=== PATIENT | male | born 1955 | race Caucasian/White ===

== ENCOUNTER → 2021-08-25 11:38 | Outpatient (BNVA) | payer MEDICARE, SELFPAY | PROVIDERS: PCP Nurse Practitioner; Visit Provider Nurse Practitioner | DX: I10 Essential (primary) hypertension (principal); J44.9 Chronic obstructive pulmonary disease, unspecified; M54.16 Radiculopathy, lumbar region; E78.2 Mixed hyperlipidemia | CPT/HCPCS: 80053; 80061; 81000; 84443; 85025 ==

== ENCOUNTER → 2021-08-30 11:19 | Outpatient (BNVA) | payer MEDICARE, SELFPAY | PROVIDERS: PCP Nurse Practitioner; Visit Provider Nurse Practitioner | DX: M54.16 Radiculopathy, lumbar region (principal) | CPT/HCPCS: 72100; 73502 ==

== ENCOUNTER → 2021-10-11 13:24 | Outpatient (BNVA) | payer MEDICARE, SELFPAY | PROVIDERS: PCP Nurse Practitioner; Visit Provider Internal Medicine Pulmonary Disease | DX: J44.9 Chronic obstructive pulmonary disease, unspecified (principal); R06.00 Dyspnea, unspecified; Z12.2 Encounter for screening for malignant neoplasm of respiratory organs; Z71.6 Tobacco abuse counseling; F17.210 Nicotine dependence, cigarettes, uncomplicated | CPT/HCPCS: 99204 ==

== ENCOUNTER 2021-12-26 08:44 | Outpatient (CLI) | payer MEDICARE, SELFPAY ==
--- NOTE | 2021-12-26 13:20 | PFTS_ITS ---
Date of Study:12/26/21 Date of Dictation: MECHANICS: Forced vital capacity (FVC) is reduced. Forced expiratory volume in one second (FEV1) is reduced. FEV1/FVC is reduced. FLOW VOLUME LOOP: Reduced flow at all lung volumes with significant scooping. LUNG VOLUMES: Total lung capacity (TLC) is increased. Residual volume (RV) is increased. DIFFUSING CAPACITY FOR CARBON MONOXIDE: Moderately reduced. INTERPRETATION: The postbronchodilator spirometry is consistent with severe airflow obstruction. There is a significant postbronchodilator response. Lung volumes are consistent with hyperinflation and air trapping. Gas exchange (DLCO) is moderately reduced. MTDD
== END 2021-12-26 08:45 | disposition home or self-care (01) ==
LOC: RT 08:45
PROVIDERS: PCP Nurse Practitioner; Visit Provider Internal Medicine Pulmonary Disease
DX: J44.9 Chronic obstructive pulmonary disease, unspecified (principal)
CPT/HCPCS: 94060; 94618; 94726; 94729; J7611

== ENCOUNTER 2022-01-22 10:47 | Outpatient (CLI) | payer MEDICARE, SELFPAY ==
--- NOTE | 2022-01-22 11:15 | CT_ITS ---
WS: [id number] LDCT LUNG CANCER SCREENING HISTORY: lung screening TECHNIQUE: Axial imaging performed from the apices to 1 cm below the costophrenic angles. Coronal and sagittal reformats are submitted with axial MIP series. All CT scans at [facility] use at least one of these dose optimization techniques: automated exposure control; mA and/or kV adjustment per patient size (includes targeted exams where dose is matched to clinical indication); or iterativ e reconstruction. DLP: 85.59 mGy.cm DIvol: Mean CTDIvol: 1.60 (mGy) COMPARISON: None available. Diagnostic quality: Satisfactory Lung Nodules: Mild hyperexpansion from emphysema. No suspicious mass or pulmonary nodule. No pneumoni a. No endobronchial lesions. There is a small amount of mucus and debris in the posterior LEFT latera l distal trachea. Heart: Normal size. No effusion. Scattered moderate coronary artery calcifications. Other findings: Mild atherosclerosis aorta. No mediastinal or hilar adenopathy. Mild thickening of th e LEFT adrenal gland. Suspect is probably an underlying benign adenoma as Hounsfield units are low bu t there is some motion artifact obscuring margins of the nodule. Splenic artery calcifications. Marke d constipation transverse colon. Mild thoracic spondylosis. CT/CT lung screening [id number] IMPRESSION: LUNG-RADS: 1S-Negative with Significant Findings FOLLOW UP: 12 Month: Continue annual screening with LDCT OTHER FINDINGS (S MODIFIER): Coronary artery calcifications.
== END 2022-01-22 10:48 | disposition home or self-care (01) ==
LOC: RAD 10:49
PROVIDERS: PCP Nurse Practitioner; Visit Provider Internal Medicine Pulmonary Disease
DX: Z12.2 Encounter for screening for malignant neoplasm of respiratory organs (principal); F17.210 Nicotine dependence, cigarettes, uncomplicated
CPT/HCPCS: 71271

== ENCOUNTER → 2022-03-07 09:46 | Outpatient (BNVA) | payer MEDICARE, SELFPAY | PROVIDERS: PCP Nurse Practitioner; Visit Provider Nurse Practitioner | DX: I10 Essential (primary) hypertension (principal); J44.9 Chronic obstructive pulmonary disease, unspecified | CPT/HCPCS: 80053; 80061; 85025 ==

== ENCOUNTER 2022-04-18 20:09 | Inpatient (IN) | payer MEDICARE, SELFPAY ==
[2022-04-18] VITALS (8 sets, daily range): BP systolic 113–154; BP diastolic 65–69; PULSE 76–98; RESP 16–28; TEMP 36.5; O2SAT 89–100; BMI 23.7
--- NOTE | 2022-04-18 20:52 | XRR_ITS ---
PROCEDURE INFORMATION: Exam: XR Chest Exam date and time: 04/18/2022 9:01 PM Age: 66 years old Clinical indication: Pain; Other: Middle of chest; Additional info: SOB, copd, chest pain, nausea, cough, 3 days TECHNIQUE: Imaging protocol: Radiologic exam of the chest. Views: 1 view. COMPARISON: CT lung screening [id number] 01/22/2022 11:22 AM FINDINGS: Lungs: Emphysematous changes of the lungs. No consolidation. Pleural spaces: No pleural effusion. No pneumothorax. Heart/Mediastinum: No cardiomegaly. Bones/joints: Visualized osseous structures are intact. XR/XR chest 1V portable [id number] IMPRESSION: No acute findings.
--- NOTE | 2022-04-18 20:53 | W.ED.SOB ---
HPI - SOB/Dyspnea General: Chief Complaint: Shortness of Breath/Dyspnea Stated Complaint: sob Time Seen by Provider: 04/18/22 20:42 Source: patient and family Mode of arrival: ambulatory Limitations: no limitations History of Present Illness: HPI Narrative: Patient with a known history of oxygen requiring COPD presents to our emergency department because of increasing difficulty breathing despite home oxygen as well as use of MDI. He denies any known fevers or chills. He states that family members have had upper respiratory symptoms. He has been oxygen requiring on his COPD for the last approximately 5 years. He was intubated 1 time in 2017 in [facility] and then subsequently started on home oxygen. He states he wears oxygen at 2 L normally. He denies any chest pain. He denies any history of cardiovascular disease. He is still smoking cigarettes. He states he did not sleep well last night due to fear of not waking up if he fell asleep. MD elicited complaint: shortness of breath Pertinent past history: COPD Severity: moderate Relieving factors: nothing, oxygen and upright position Associated symptoms: Deny abdominal pain, chest pain, extremity pain, fever(s), nausea, palpitations, syncope or vomiting Related Data: Home oxygen amount: 2 liters Review of Systems Const: Denies: fever(s) or chills ENMT: Denies: odynophagia, nasal discharge, nasal congestion or nasal obstruction Card: Denies: chest pain, palpitations, irregular heart rhythm, edema, syncope or pre-syncope Resp: Reports: dyspnea and wheezing GI: Denies: abdominal pain, nausea, vomiting or diarrhea : Denies: difficulty urinating or dysuria Musc: Denies: neck pain, back pain, extremity pain or extremity swelling Skin/Breast: Denies: rash Neuro: Denies: headache(s), numbness in extremities or weakness in extremities PFSH ED PFSH: Medical History Cigarette smoker COPD (chronic obstructive pulmonary disease) Essential hypertension Hyperlipidemia, mixed Lumbar neuralgia Surgical History History of cystostomy History of hemorrhoidectomy History of lumbar surgery Family History Other Cancer Diabetes Hyperlipidemia Hypertension Social History Smoking and tobacco status: current every day smoker cigarettes Packs smoked per day: 1 Years cigarettes smoked: 50 [ Other cigarette details: currently 1ppd ] Second hand smoke exposure: No Smoking risk assessment/counseling performed?: Yes Alcohol intake: current Alcohol intake frequency: holidays/special occasions only Desire information about alcohol rehabilitation?: No Counseling given: No Desire information about substance/drug rehabilitation?: No Counseling given: No Adopted: No Caregiver/support person: Yes Lives independently: Yes Household members: family and other Details: live with son and 2 grandsons Housing: House Marital status: Number of children: 4 Number of grandchildren: 4 Highest education level completed: GED or Equivalent Current occupational status: retired Current occupational exposures/hazards: No Pets and animals: Yes History of recent travel: No Current gender identity: Male Physical Exam Narrative: EXAM NARRATIVE: Patient is alert. He is exhibiting some increased work of breathing but is able to speak in 3-4 word sentences. Const: COMMON NORMALS: average body habitus, patient oriented x3 and alert GENERAL APPEARANCE: appears older than stated age HENMT: COMMON NORMALS: normocephalic, Normal nasal mucous membranes and turbinates present, moist oral mucous membranes and oropharynx normal HEAD & SCALP: normocephalic NOSE: Normal nasal mucous membranes and turbinates present Eye: COMMON NORMALS: Equal, round and reactive pupils present, EOMs intact bilaterally and conjunctivae normal CONJUNCTIVA: Yes conjunctivae normal PUPIL: Yes Equal, round and reactive pupils present Neck/C-Spine: COMMON NORMALS: full ROM, no lymphadenopathy, no JVD and No carotid bruits Chest: COMMONS NORMALS: normal inspection of the chest Resp: EFFORT & INSPECTION: Yes labored and Yes uses accessory muscles AUSCULTATION: wheezes and diminished lung sounds Cardio: COMMON NORMALS: no JVD, regular rate, regular rhythm, No murmurs present (Cardio) and Peripheral pulses 2+ throughout RATE: regular rate RHYTHM: regular rhythm PERIPHERAL PULSES: Peripheral pulses 2+ throughout GI: COMMON NORMALS: Normal to inspection, nondistended, normoactive bowel sounds present, Soft to palpation and non-tender PALPATION: Yes Soft to palpation : COMMON NORMALS: Yes no CVA tenderness BLADDER/KIDNEY EXAM: Yes no CVA tenderness Back/Pelvis: COMMON NORMALS: no CVA tenderness, thoracic and lumbar spine normal to inspection, no thoracic nor lumbar tenderness and thoraco-lumbar ROM normal Extremity: COMMON NORMALS: normal to inspection, full ROM, capillary refill normal, no calf tenderness and no pedal edema Neuro: COMMON NORMALS: patient oriented x3, moves all extremities, no focal motor deficits and no sensory deficits noted SENSORIUM/ORIENTATION: Yes alert CRANIAL NERVES: Yes CN normal except as noted Course Reevaluation(s): Reevaluation #1: The patient was reevaluated. His blood gas shows he is hypercapnic with appropriate acidosis but he also has significant work of breathing. He is reluctant to try BiPAP but I offered to give him a benzodiazepines to help with some of his anxiety and hopefully allow him to tolerate noninvasive ventilatory support. He is adamant that he does not want to be intubated at this time. Time: 21:39 Reevaluation #2: After Ativan he is more comfortable and is tolerating the BiPAP well. He is getting an inline treatment. Clearly this patient will need to be admitted to the hospital for further treatment. Time: 22:31 Consultations: Consultation #1: Discussed with overnight hospitalist who agreed to place the patient in the hospital for further treatment. He made some additional request for testing which will be completed. Time: 22:31 Vital Signs: Vital signs: Vital Signs Temperature 97.7 F 04/18/22 20:15 Pulse Rate 87 04/18/22 22:01 Respiratory Rate 27 H 04/18/22 22:01 Blood Pressure 154/69 04/18/22 20:15 Pulse Oximetry 100 04/18/22 22:01 Oxygen Delivery Me thod 04/18/22 21:21 Oxygen Flow Rate 6 04/18/22 21:21 Fraction of Inspir ed Oxygen 70 04/18/22 22:01 MDM - SOB/Dyspnea Medical Decision Making This gentleman has history of oxygen dependent COPD who is had progressive worsening of shortness of breath despite oxygen and metered-dose inhalers at home. He still continues to smoke cigarettes despite his disease. He has a prior history of intubation in 2017 and expressed his strong opposition to that procedure again. He did display significant work of breathing in the emergency department and had evidence of acidosis with with hypercapnia. Eventually we were able to convince him to a trial of BiPAP. We are planning on admitting him to the hospital and obtaining additional studies to ensure that there is no evidence of ACS, congestive heart failure etc.His chest x-ray this evening showed evidence of hyperinflation consistent with COPD but no acute infiltrates and had normal cardiac silhouette. Lab Data I reviewed the patient's lab results. 04/18/22 20:46 04/18/22 20:46 Labs/Radiology: Radiology Impressions Chest X-Ray 04/18/22 20:52 IMPRESSION: No acute findings. Laboratory Results WBC 13.9 10^3/uL (4.0-10.0) H 04/18/22 20:46 RBC 5.14 10^6/uL (4.1-5.3) 04/18/22 20:46 Hgb 15.4 g/dL (11.7-16.6) 04/18/22 20:46 Hct 47.3 % (42.0-52.0) 04/18/22 20:46 MCV 92.0 fl (80-94) 04/18/22 20:46 MCH 30.0 pg (28.0-34.0) 04/18/22 20:46 MCHC 32.6 g/dL (30.0-36.0) 04/18/22 20:46 RDW 13.5 % (12.1-15.1) 04/18/22 20:46 Plt Count 235 10^3/cmm (130-400) 04/18/22 20:46 MPV 9.8 fL (7.4-10.4) 04/18/22 20:46 Neut % (Auto) 88.7 % 04/18/22 20:46 Lymph % (Auto) 3.6 % 04/18/22 20:46 [place] % (Auto) 7.0 % 04/18/22 20:46 Eos % (Auto) 0.1 % 04/18/22 20:46 Baso % (Auto) 0.2 % 04/18/22 20:46 Neut # (Auto) 12.31 10^3/uL (1.8-7.7) H 04/18/22 20:46 Lymph # (Auto) 0.5 10^3/uL (0.8-4.8) L 04/18/22 20:46 [place]born # (Auto) 1.0 10^3/uL (0.2-0.9) H 04/18/22 20:46 Eos # (Auto) 0.0 10^3/uL (0.0-0.8) 04/18/22 20:46 Baso # (Auto) 0.0 10^3/uL (0.0-0.1) 04/18/22 20:46 Nucleated RBC % (auto) 0 % 04/18/22 20:46 Nucleated RBCs # 0.0 /100WBC 04/18/22 20:46 Specimen Type Arterial 04/18/22 21:16 Sample Site Radial, right 04/18/22 21:16 ABG pH 7.27 (7.35-7.45) L 04/18/22 21:16 ABG pCO2 65.9 mmHg (35-45) H* 04/18/22 21:16 ABG pO2 65.4 mmHg (80.0-100.0) L 04/18/22 21:16 ABG HCO3 30.5 mmol/L (22-26) H 04/18/22 21:16 ABG O2 Saturation 92.1 04/18/22 21:16 ABG Base Excess 1.6 mmol/L (-2.0-2.0) 04/18/22 21:16 Osvaldo Test Pos 04/18/22 21:16 A-a O2 Gradient 17.8 mmHg (5-10) H 04/18/22 21:16 Hematocrit 46.5 % (42-52) 04/18/22 21:16 Hgb O2 Saturation 86.6 % (95-100) L 04/18/22 21:16 Carboxyhemoglobin 5.6 %THgb (0.4-20.1) 04/18/22 21:16 Methemoglobin 0.4 % (0.4-1.5) 04/18/22 21:16 Total Hemoglobin 15.2 g/dL (14-18) 04/18/22 21:16 Sodium 139.0 mmol/L (131-143) 04/18/22 21:16 Potassium 3.5 mmol/L (3.5-5.0) 04/18/22 21:16 Glucose 145.0 mg/dL (70-115) H 04/18/22 21:16 Ionized Calcium 1.2 mmol/L (1.1-1.4) 04/18/22 21:16 O2 Delivery Device Nc 04/18/22 21:16 O2 Liters/Min 5.0 % 04/18/22 21:16 FiO2 40.0 % 04/18/22 21:16 Plastic Parts Designer ID Mamie 04/18/22 21:16 Sodium 138 mmol/L (136-145) 04/18/22 20:46 Potassium 3.5 mmol/L (3.5-5.1) 04/18/22 20:46 Chloride 96 mmol/L (98-107) L 04/18/22 20:46 Carbon Dioxide 31 mmol/L (22-29) H 04/18/22 20:46 Anion Gap 14.5 (5-19) 04/18/22 20:46 BUN 20 mg/dL (8-23) 04/18/22 20:46 Creatinine 0.7 mg/dL (0.7-1.2) 04/18/22 20:46 GFR Calculation 113.2 mL/min (90-130) 04/18/22 20:46 Glucose 162 mg/dL (65-115) H 04/18/22 20:46 Calculated Osmolality 292 mOsm/kg (285-295) 04/18/22 20:46 Calcium 8.9 mg/dL (8.5-10.5) 04/18/22 20:46 Total Bilirubin 0.5 mg/dL (0.15-1.2) 04/18/22 20:46 AST 32 U/L (0-40) 04/18/22 20:46 ALT 24 U/L (0-41) 04/18/22 20:46 Alkaline Phosphatase 111 U/L (40-130) 04/18/22 20:46 Total Protein 7.8 g/dL (6.6-8.7) 04/18/22 20:46 Albumin 4.5 g/dL (3.5-5.2) 04/18/22 20:46 Globulin 3.3 g/dL (1.3-4.6) 04/18/22 20:46 EKG Data EKG 1: I personally reviewed and interpreted this EKG as follows: Interpretation: Resting EKG reveals a ventricular rate of 80 bpm consistent with sinus rhythm. He has normal GA interval, QRS duration, corrected QT interval. Normal axis. No acute ST-T wave changes noted at this time. Discharge Plan Discharge Patient Disposition: Admitted As Inpatient Clinical Impression: Acute exacerbation of chronic obstructive airways disease, Cigarette smoker Condition: Stable Coding Level of Care Code ED [facility] Director for Jesus Fwd Exam Comprehensive
[2022-04-18] MEDS: ipratropium-albuterol 3 mL Neb INHALATION (21:04)
[2022-04-18] MEDS: sodium chloride 0.9% 500 ML 999 ML IV (21:04)
[2022-04-18 21:15] LABS: Alanine Aminotransferase 24 U/L (0-41); Albumin Level 4.5 g/dL (3.5-5.2); Alkaline Phosphatase 111 U/L (40-130); Anion Gap 14.5 (5-19); Aspartate Amino Transferase 32 U/L (0-40); Blood Urea Nitrogen 20 mg/dL (8-23); Calcium 8.9 mg/dL (8.5-10.5); Carbon Dioxide 31 mmol/L (22-29); Chloride 96 mmol/L (98-107); Globulin 3.3 g/dL (1.3-4.6); Glomerular Filtration Rate 113.2 mL/min (90-130); Glucose 162 mg/dL (65-115); Osmolality Calculated 292 mOsm/kg (285-295); Potassium 3.5 mmol/L (3.5-5.1); Sodium 138 mmol/L (136-145); Total Bilirubin 0.5 mg/dL (0.15-1.2); Total Protein 7.8 g/dL (6.6-8.7)
[2022-04-18 21:20] LABS: Basophils % 0.2 %; Eosinophils % 0.1 %; Hematocrit 47.3 % (42.0-52.0); Hemoglobin 15.4 g/dL (11.7-16.6); Lymphocytes # 0.5 10^3/uL (0.8-4.8); Lymphocytes % 3.6 %; Mean Corpuscular HGB Conc 32.6 g/dL (30.0-36.0); Mean Platelet Volume 9.8 fL (7.4-10.4); Neutrophils # 12.31 10^3/uL (1.8-7.7); Neutrophils % 88.7 %; Nucleated Red Blood Cells % 0 %; Platelet Count 235 10^3/cmm (130-400); Red Blood Count 5.14 10^6/uL (4.1-5.3); Red Cell Distribution Width 13.5 % (12.1-15.1); White Blood Count 13.9 10^3/uL (4.0-10.0)
[2022-04-18 21:28] LABS: ABG PH Result 7.27 (7.35-7.45); Alveolar-Arterial Oxygen Gradi 17.8 mmHg (5-10); Arterial Blood Gas Hematocrit 46.5 % (42-52); Base Excess ABG 1.6 mmol/L (-2.0-2.0); Blood Gas Allen Test Pos; Blood Gas Sample Site Radial, right; Blood Gas Sample Type Arterial; Carboxyhemoglobin 5.6 %THgb (0.4-20.1); HCO3 ABG 30.5 mmol/L (22-26); HGB O2 Sat 86.6 % (95-100); Ionized Calcium Level - ABG 1.2 mmol/L (1.1-1.4); Methemoglobin 0.4 % (0.4-1.5); Oxygen Device NC; Oxygen Saturation ABG 92.1; PO2 ABG 65.4 mmHg (80.0-100.0); Potassium Level - ABG 3.5 mmol/L (3.5-5.0); Total Hemoglobin 15.2 g/dL (14-18)
[2022-04-18 21:29] LABS: ABG PCO2 65.9 mmHg (35-45)
[2022-04-18] MEDS: LORazepam 2 mg/mL INJ 1 mL 1 MG IVP (21:54)
[2022-04-18] MEDS: ipratropium-albuterol 3 mL Neb 9 ML INHALATION (22:09)
--- NOTE | 2022-04-18 22:39 | ECG_ITS ---
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 Measurements Intervals [place] Rate: 80 P: 73 NV: 175 QRS: 48 QRSD: 97 T: 79 QT: 390 QTc: 451 Interpretive Statements SINUS RHYTHM INCOMPLETE RIGHT BUNDLE BRANCH BLOCK [90+ ms QRS DURATION, TERMINAL R IN V1/V2, 40+ ms S IN I/aVL/V4/V5/V6] No previous ECG available for comparison Electronically Signed On 04-19-2022 14:45:44 SUEDE BRUSHER by Adis Canada M.D. [id number]
--- NOTE | 2022-04-18 22:59 | P.HP_ITS ---
Providers/Chief Complaint Primary Care Provider: Surendra Rizzo, BRUNAC Chief Complaint: sob History of Present Illness Avni Hidalgo is a 66 year old male with a past medical history of hypertension, COPD, hyper lipidemia, lumbar neuralgia, current smoker, who presents [facility] due to complaints of shortness of breath. Currently patient does not awaken, he does not wake up to sternal rub, a sternal rub did 3 times but he did not wake up. He does withdraw from pain, he has just received Ativan as he was placed on BiPAP for agitation he has not slept for the last 2 nights according to ER provider. Most of the history was provided by ER physician patient has a history of COPD, has been intubated in the past, presented [facility] for shortness of breath, in the emergency room he was found to have hypercapnic respiratory failure, increased work of breathing, patient declined intubation, this discussion was made between the patient and ER physician he absolutely declined intubation, however was eventually agreeable to BiPAP therapy was placed on BiPAP therapy, given Ativan to help with anxiety. Currently I will see any evidence of respiratory distress, no nasal flaring no intercostal retractions, no tachypnea, he is pulling 500 tidal volumes, afebrile, normotensive, no significant tachycardia, hospitalist team was called for admission Review of Systems General: Reports: ROS unobtainable due to medical condition and ROS unobtainable due to mental status Medications/Allergies Home Medications Medication Instructions Recorded Confirmed Last Taken Type albuterol sulfate 1.25 mg/3 mL 1.25 mg inhalation QID PRN 08/25/21 03/14/22 Unknown History solution for nebulization aspirin 81 mg chewable tablet 81 mg PO DAILY 08/25/21 03/14/22 Unknown History mupirocin 2 % topical ointment 1 applic topical BID #22 grams 11/29/21 03/14/22 Unknown Rx triamcinolone acetonide 0.1 % 1 applic topical DAILY #453.6 grams 12/01/21 03/14/22 Unknown Rx topical cream albuterol sulfate 90 mcg/actuation 2 puff inhalation Q6H PRN 02/01/22 03/14/22 Unknown Rx aerosol inhaler shortness of breath or wheezing #25.5 grams atorvastatin 20 mg tablet 20 mg PO DAILY #90 tabs 02/01/22 03/14/22 Unknown Rx budesonide 0.5 mg/2 mL suspension 0.5 mg (2 mL) inhalation BID 02/01/22 03/14/22 Unknown Rx for nebulization (Pulmicort) #1,800 mL formoterol fumarate 20 mcg/2 mL 2 ml inhalation Q12H #1,800 mL 02/01/22 03/14/22 Unknown Rx solution for nebulization (Perforomist) lisinopril 20 1 tab PO BID #180 tabs 02/01/22 03/14/22 Unknown Rx mg-hydrochlorothiazide 12.5 mg tablet tramadol 50 mg tablet 50 mg PO Q8H #120 tabs 02/01/22 03/14/22 Unknown Rx verapamil 360 mg 24 hr 360 mg PO DAILY #90 caps 02/01/22 03/14/22 Unknown Rx capsule,extended release duloxetine 30 mg capsule,delayed 30 mg PO BID #180 caps 03/14/22 03/14/22 Unknown Rx release gabapentin 800 mg tablet 1,600 mg PO Q12H #360 tabs 03/14/22 03/14/22 Unknown Rx prednisone 10 mg tablet 10 mg PO DAILY #5 tabs 03/14/22 03/14/22 Unknown Rx tiotropium bromide 18 mcg capsule 1 cap inhalation DAILY #90 03/14/22 03/14/22 Unknown Rx with inhalation device (Spiriva inhalations with HandiHaler) Allergies Allergy/AdvReac Type Severity Reaction Status Date / Time Penicillins Allergy Severe swelling Verified 03/14/22 09:59 PFSH Acute 2 PFSH: Medical History Cigarette smoker COPD (chronic obstructive pulmonary disease) Essential hypertension Hyperlipidemia, mixed Lumbar neuralgia Surgical History History of cystostomy History of hemorrhoidectomy History of lumbar surgery Family History Other Cancer Diabetes Hyperlipidemia Hypertension Social History Smoking and tobacco status: current every day smoker cigarettes Packs smoked per day: 1 Years cigarettes smoked: 50 [ Other cigarette details: currently 1ppd ] Second hand smoke exposure: No Smoking risk assessment/counseling performed?: Yes Alcohol intake: current Alcohol intake frequency: holidays/special occasions only Desire information about alcohol rehabilitation?: No Counseling given: No Desire information about substance/drug rehabilitation?: No Counseling given: No Adopted: No Caregiver/support person: Yes Lives independently: Yes Household members: family and other Details: live with son and 2 grandsons Housing: House Marital status: Number of children: 4 Number of grandchildren: 4 Highest education level completed: GED or Equivalent Current occupational status: retired Current occupational exposures/hazards: No Pets and animals: Yes History of recent travel: No Current gender identity: Male Vitals/I&O/Wt Last Vital Signs Temp 97.7 F 04/18/22 20:15 Pulse 87 04/18/22 22:01 Resp 27 H 04/18/22 22:01 BP 154/69 04/18/22 20:15 Pulse Ox 100 04/18/22 22:01 O2 Del Method 04/18/22 21:21 O2 Flow Rate 6 04/18/22 21:21 FiO2 70 04/18/22 22:01 04/18/22 04/18/22 04/18/22 06:59 14:59 22:59 Intake Total 500 / 500 Balance 500 / 500 Weight last 48 hrs Weight 77.111 kg Physical Exam Const: COMMON NORMALS: no acute distress EXAM LIMITATIONS: altered mental status ORIENTATION/CONSCIOUSNESS: Yes patient obtunded; not awake, not oriented to person, not oriented to place and not oriented to time HENMT: COMMON NORMALS: normocephalic HEAD & SCALP: normocephalic Eye: COMMON NORMALS: Equal, round and reactive pupils present Neck/C-Spine: COMMON NORMALS: no JVD Lymph: LYMPHATIC: no lymphadenopathy noted Chest: COMMONS NORMALS: normal inspection of the chest Resp: COMMON NORMALS: normal respiratory effort, No retractions and No use of accessory muscles EFFORT & INSPECTION: Yes symmetric chest movement AUSCULTATION: wheezes OTHER: No nasal flaring, no intercostal retractions no suprasternal retractions, no tachypnea Cardio: COMMON NORMALS: no JVD, regular rate, regular rhythm, S1 normal heart sound present and S2 normal heart sound present RATE: regular rate RHYTHM: regular rhythm HEART SOUNDS: S1 normal heart sound present and S2 normal heart sound present GI: COMMON NORMALS: Normal to inspection, nondistended, normoactive bowel sounds present, Soft to palpation and non-tender Extremity: COMMON NORMALS: no pedal edema Neuro: OTHER: Does not follow neurologic testing Data 04/18/22 20:46 04/18/22 20:46 A&P Assessment and plan (1) Acute respiratory failure with hypoxia and hypercapnia: (2) Acute exacerbation of chronic obstructive airways disease: (3) Cigarette smoker: (4) Hyperlipidemia, mixed: (5) Essential hypertension: (6) COPD (chronic obstructive pulmonary disease): (7) Acute encephalopathy: Plan Acute hypoxic hypercarbic respiratory failure -Likely secondary to COPD exacerbation -We will need to monitor his mentation closely as he is received Ativan, he does not respond to sternal rub, patient was adamant to ER physician he did not want to be intubated -Chest x-ray no focal pneumonia -Pro-Lion, CRP, BMP, troponin series, flu, COVID pending, D-dimer Plan -Given patient's current mentation, and respiratory failure will have to admit to ICU -Continue BiPAP therapy repeat ABG in in a few hours -Continue Solu-Medrol 40 every 8 hours -Continue budesonide twice daily -Continue ipratropium every 4 hours scheduled -Doxycycline 100 twice daily -Follow sputum cultures, blood cultures, urine bacterial antigens -We will consider CT imaging based on further testing -CODE STATUS -I have not had a discussion with patient about resuscitation, I cannot do so due to his mentation, so for now we will keep him: Yes to chest compressions, CPR, ICU admission -As he is explicitly said that he does not want intubated, we will honor his wish -Lovenox for DVT prophylaxis Attestations Medical Necessity Statement*: Patient requires hospitalization for acute encephalopathy, acute hypercarbic respiratory failure, inpatient, greater than 2 midnights Coding Level of Care Code Acute Code for Chg Fwd Diagnoses Acute respiratory failure with hypoxia and hypercapnia J96.01; J96.02 Acute exacerbation of chronic obstructive airways disease J44.1 Cigarette smoker F17.210 Hyperlipidemia, mixed E78.2 Essential hypertension I10 COPD (chronic obstructive pulmonary disease) J44.9 Acute encephalopathy G93.40
[2022-04-18 23:16] LABS: Influenza A by IFA negative (Negative); Influenza B by IFA negative (Negative)
[2022-04-18 23:17] LABS: SARS Covid-2 Antigen negative (Negative)
[2022-04-18 23:43] LABS: Lactic Sepsis W/Reflex 2.1 mmol/L (0.5-2.2)
[2022-04-18 23:47] LABS: Troponin T (5th) Once 28 ng/L (0-15)
[2022-04-18 23:55] LABS: NT Pro B Type Natriuretic Pept 522 pg/mL (0-125); Procalcitonin 0.12 ng/mL (0-0.5)
[2022-04-19] VITALS (43 sets, daily range): BP systolic 92–173; BP diastolic 60–115; PULSE 79–128; RESP 16–28; TEMP 36–36.8; O2SAT 78–100
[2022-04-19 00:07] LABS: C Reactive Protein 57.2 mg/L (0.0-4.9); Phosphorus 3.4 mg/dL (2.5-4.5)
[2022-04-19 00:14] LABS: Reflex Lactate Order REFLEX LACTIC ORDERD
[2022-04-19 04:05] LABS: Lactic Acid level (Lactate) 1.3 mmol/L (0.5-2.2)
--- NOTE | 2022-04-19 07:33 | ECG_ITS ---
[facility] Test Date: 2022-04-18 Pat Name: Avni Hidalgo Department: Room: ICU12 Gender: Male Lunch Truck Driver: : 1955 Requested By: Maurilio Katz Order Number: [id number] Pantoja MD: Gala Acosta M.D. Measurements Intervals [place] Rate: 93 P: 87 GA: 171 QRS: 55 QRSD: 108 T: 83 QT: 354 QTc: 442 Interpretive Statements SINUS RHYTHM INCOMPLETE RIGHT BUNDLE BRANCH BLOCK [90+ ms QRS DURATION, TERMINAL R IN V1/V2, 40+ ms S IN I/aVL/V4/V5/V6] MODERATE ST DEPRESSION [0.05+ mV ST DEPRESSION] No previous ECG available for comparison Electronically Signed On 04-19-2022 10:02:27 CLINICAL OFFICE TECHNICIAN by Gala Acosta M.D. [email or web address]/store/NU/[id number] f
--- NOTE | 2022-04-19 07:57 | PC.NURSE ---
To ICU at 0750, patient very anxious and asking to put put out prior to putting bipap back on. Patient on simple mask. VSS. AAOx4. Telephone order obtained for 1 mg Ativan one time now. Patient transferred from stretcher to bed x4 nurses. Patient sitting tripod position. Bipap 50% placed on patient.
[2022-04-19] MEDS: ipratropium-albuterol 3 mL Neb INHALATION ×5 (08:01→23:58)
[2022-04-19] MEDS: budesonide 0.5 mg/2 mL Neb INHALATION ×2 (08:01→21:06)
[2022-04-19] MEDS: LORazepam 2 mg/mL INJ 1 mL 1 MG IVP ×2 (08:16→11:39)
[2022-04-19] MEDS: pantoprazole 40 mg SDV IVP ×2 (08:24→20:35)
[2022-04-19] MEDS: enoxaparin 40 mg/0.4 mL Syringe SUBCUT (08:25)
[2022-04-19] MEDS: doxycycline 100 MG in sodium chloride 0.9% (plus) 100 ML IV ×2 (08:25→20:34)
[2022-04-19 09:00] LABS: Basophils % 0.2 %; Hematocrit 50.4 % (42.0-52.0); Hemoglobin 15.1 g/dL (11.7-16.6); Lymphocytes # 0.4 10^3/uL (0.8-4.8); Lymphocytes % 2.9 %; Mean Corpuscular Hemoglobin 30.1 pg (28.0-34.0); Mean Corpuscular Volume 100.6 fl (80-94); Mean Platelet Volume 10.2 fL (7.4-10.4); Monocytes # 0.6 10^3/uL (0.2-0.9); Monocytes % 4.5 %; Neutrophils # 12.39 10^3/uL (1.8-7.7); Neutrophils % 91.8 %; Nucleated Red Blood Cells % 0 %; Platelet Count 229 10^3/cmm (130-400); Red Blood Count 5.01 10^6/uL (4.1-5.3); Red Cell Distribution Width 13.5 % (12.1-15.1); White Blood Count 13.5 10^3/uL (4.0-10.0)
[2022-04-19 09:48] LABS: Estmated Average Glucose 117; Hemoglobin A1C 5.7 % (4.0-6.0)
--- NOTE | 2022-04-19 10:00 | P.PN_ITS ---
Subjective Subjective: History and physical was reviewed. Patient somewhat sedated after Ativan dose to allow BiPAP use. Medications: Reviewed: Yes Vitals/I&O/Wt Last Vital Signs Temp 96.8 F L 04/19/22 08:00 Pulse 100 04/19/22 08:06 Resp 25 H 04/19/22 08:03 BP 162/87 04/19/22 08:00 Pulse Ox 97 04/19/22 08:04 O2 Del Method 04/19/22 08:03 O2 Flow Rate 15 04/19/22 07:53 FiO2 40 04/19/22 08:04 04/18/22 04/19/22 04/19/22 22:59 06:59 14:59 Intake Total 500 / 500 0 / 500 Balance 500 / 500 0 / 500 Weight last 48 hrs Weight 77.111 kg Physical Exam Narrative: General exam is a sedate but arousable male with moderate respiratory distress with moderate retractions HEENT: BiPAP is noted Neck is supple no lymphadenopathy thyromegaly Cardiovascular regular rate and rhythm without murmur Lungs bilateral expiratory wheezes Abdomen is soft, positive bowel sounds Extremities no cyanosis clubbing or edema, cap refill brisk Neuro no obvious focal deficits Data 04/19/22 08:45 04/18/22 20:46 A&P Assessment and plan (1) Acute respiratory failure with hypoxia and hypercapnia: Patient presents with significant acute COPD exacerbation with respiratory failure requiring BiPAP. Continue BiPAP currently, and wean as tolerated He refuses intubation (2) Acute exacerbation of chronic obstructive airways disease: IV steroids Continue pulmonary toilet with budesonide every 12 hours, DuoNeb every 4 hours Antibiotic consisting of doxycycline Wean off BiPAP as tolerated Has refused intubation Plan Tobacco dependency Multiple other medical problems as outlined in past medical history Attestations Medical Necessity Statement*: Limited code, no intubation Lovenox for DVT prophylaxis Critical Care Time: The high probability of a clinically significant, sudden or life threatening deterioration of the patient's [pulmonary] system(s) r equired my full and direct attention, intervention and personal management. The critical care time is as shown. This time is in addition to time spent performing any reported procedures but includes the following: [x] Data and vital sign review and interpretation [x] Patient assessment, examination and intervention [x] Documentation [x] Medication orders and management Critical Care Time (min): 31 Coding Level of Care Code Acute Code for Chg Fwd Diagnoses Acute respiratory failure with hypoxia and hypercapnia J96.01; J96.02 Acute exacerbation of chronic obstructive airways disease J44.1
[2022-04-19 10:45] LABS: Alanine Aminotransferase 26 U/L (0-41); Albumin Level 4.1 g/dL (3.5-5.2); Alkaline Phosphatase 100 U/L (40-130); Anion Gap 16.9 (5-19); Aspartate Amino Transferase 32 U/L (0-40); Blood Urea Nitrogen 29 mg/dL (8-23); Calcium 9.1 mg/dL (8.5-10.5); Carbon Dioxide 27 mmol/L (22-29); Chloride 98 mmol/L (98-107); Globulin 3.4 g/dL (1.3-4.6); Glucose 153 mg/dL (65-115); Osmolality Calculated 295 mOsm/kg (285-295); Potassium 3.9 mmol/L (3.5-5.1); Sodium 138 mmol/L (136-145); Thyroid Stimulating Hormone 0.34 uIU/mL (0.27-4.20); Total Bilirubin 0.4 mg/dL (0.15-1.2); Total Protein 7.5 g/dL (6.6-8.7)
[2022-04-19] MEDS: dexmedetomidine 400 MCG in sodium chloride 0.9% (100 ml) 100 ML 6.02 MCG IV (12:02)
[2022-04-19] MEDS: nicotine 21 mg Patch 1 PATCH TRANSDERMA (13:46)
[2022-04-19 15:34] LABS: Add Urine Microscopic? NO; Charge for UA Resulting for Rev
[2022-04-19 16:04] LABS: Bilirubin Urine Neg (Negative); Blood Urine Neg (Negative); Glucose Urine UA Norm (Normal); Ketones Urine Negative (Negative); Leukocyte Esterase Urine Negative (Negative); Nitrate Urine Negative (Negative); Protein Urine Neg (Negative); Specific Gravity, Urine 1.025 (1.005-1.030); Urine Appearance Clear (CLEAR); Urine Color Yellow (Yellow); Urobilinogen Urine Neg (Negative); pH Urine 5 (5-7)
--- NOTE | 2022-04-19 17:45 | PC.SLP ---
The pt was not able to participate due to medical status. PATIENT REGISTRAR will attempt to follow-up with tomorrow.
[2022-04-19] MEDS: TRAMadol 50 mg Tablet PO (20:35)
[2022-04-19] MEDS: gabapentin 300 mg Capsule 600 MG PO (20:35)
[2022-04-19] MEDS: dexmedetomidine 400 MCG in sodium chloride 0.9% (100 ml) 100 ML 16.04 MCG IV (22:02)
[2022-04-20] VITALS (27 sets, daily range): BP systolic 89–149; BP diastolic 48–87; PULSE 67–115; RESP 15–24; TEMP 36.1–37; O2SAT 88–100
[2022-04-20] MEDS: ipratropium-albuterol 3 mL Neb INHALATION ×6 (03:13→23:28)
[2022-04-20 03:20] LABS: Basophils # 0.1 10^3/uL (0.0-0.1); Basophils % 0.3 %; Hematocrit 43.2 % (42.0-52.0); Lymphocytes # 0.6 10^3/uL (0.8-4.8); Lymphocytes % 3.9 %; Mean Corpuscular HGB Conc 30.1 g/dL (30.0-36.0); Mean Corpuscular Hemoglobin 29.8 pg (28.0-34.0); Mean Corpuscular Volume 99.1 fl (80-94); Mean Platelet Volume 10.6 fL (7.4-10.4); Monocytes # 1.2 10^3/uL (0.2-0.9); Monocytes % 7.5 %; Nucleated Red Blood Cells % 0 %; Platelet Count 169 10^3/cmm (130-400); Red Blood Count 4.36 10^6/uL (4.1-5.3); Red Cell Distribution Width 13.7 % (12.1-15.1); White Blood Count 15.6 10^3/uL (4.0-10.0)
[2022-04-20 03:42] LABS: Magnesium 2.4 mg/dL (1.7-2.3)
[2022-04-20 06:55] LABS: Anion Gap 11.1 (5-19); Blood Urea Nitrogen 45 mg/dL (8-23); Calcium 8.9 mg/dL (8.5-10.5); Carbon Dioxide 32 mmol/L (22-29); Chloride 99 mmol/L (98-107); Glomerular Filtration Rate 113.2 mL/min (90-130); Glucose 160 mg/dL (65-115); Osmolality Calculated 301 mOsm/kg (285-295); Potassium 4.1 mmol/L (3.5-5.1); Sodium 138 mmol/L (136-145)
[2022-04-20] MEDS: budesonide 0.5 mg/2 mL Neb INHALATION ×2 (07:58→20:26)
[2022-04-20] MEDS: TRAMadol 50 mg Tablet PO (08:08)
[2022-04-20] MEDS: atorvastatin 40 mg Tablet 20 MG PO (08:09)
[2022-04-20] MEDS: gabapentin 300 mg Capsule 600 MG PO ×3 (08:09→20:39)
[2022-04-20] MEDS: doxycycline 100 MG in sodium chloride 0.9% (plus) 100 ML IV (08:10)
[2022-04-20] MEDS: duloxetine 30 mg Capsule PO ×2 (08:10→18:49)
[2022-04-20] MEDS: enoxaparin 40 mg/0.4 mL Syringe SUBCUT (08:10)
[2022-04-20] MEDS: lisinopril 20 mg Tablet PO ×2 (08:10→18:49)
[2022-04-20] MEDS: nicotine 21 mg Patch 1 PATCH TRANSDERMA (08:10)
[2022-04-20] MEDS: LORazepam 2 mg/mL INJ 1 mL 0.5 MG IVP ×2 (08:12→20:45)
[2022-04-20] MEDS: pantoprazole 40 mg SDV IVP (08:12)
[2022-04-20] MEDS: aspirin 81 mg Chew Tablet PO (08:13)
--- NOTE | 2022-04-20 08:33 | PM.PN ---
Subjective Subjective: Avni reports he is doing a little bit better. I took a modified BiPAP to visit with him this morning and although anxious his breathing appeared more stable. He denies any pain currently. Medications: Reviewed: Yes Vitals/I&O/Wt Last Vital Signs Temp 97 F L 04/20/22 04:00 Pulse 90 04/20/22 07:58 Resp 22 H 04/20/22 07:58 BP 98/60 04/20/22 06:00 Pulse Ox 95 04/20/22 07:58 O2 Del Method 04/20/22 07:58 O2 Flow Rate 4 04/20/22 07:58 FiO2 35 04/20/22 04:00 04/19/22 04/20/22 04/20/22 22:59 06:59 14:59 Intake Total 331.872 / 449.430 183.280 / 632.710 Output Total 425 / 575 400 / 975 Balance -93.128 / -125.570 -216.720 / -342.290 Weight last 48 hrs Weight 75.4 kg Weight 77.111 kg Physical Exam Narrative: General exam alert and oriented Neck is supple no lymphadenopathy thyromegaly Cardiovascular regular rate and rhythm without murmur Lungs bilateral expiratory wheezes, diminished breath sounds bilaterally, improved from yesterday Abdomen is soft, positive bowel sounds Extremities no cyanosis clubbing or edema, cap refill brisk Skin without rash Urinary Catheter Management: Huff: Cath Placed During This Visit: yes Reason for Continuing Indwelling Catheter: Accurate Measurement of Urinary Output in Critically Ill Patients Urinary Catheter Date of Insertion: 04/19/22 Urinary Catheter Time of Insertion: 14:35 Data 04/20/22 02:53 04/20/22 06:22 Micro: Microbiology 04/19/22 09:55 Blood Culture - Preliminary Blood SPECIMEN COLLECTED 04/19/22 09:45 Blood Culture - Preliminary Blood SPECIMEN COLLECTED A&P Assessment and plan (1) Acute respiratory failure with hypoxia and hypercapnia: Patient presents with significant acute COPD exacerbation with respiratory failure requiring BiPAP. Continue to wean BiPAP Appears improved today He refuses intubation (2) Acute exacerbation of chronic obstructive airways disease: Reduce IV steroids Continue pulmonary toilet with budesonide every 12 hours, DuoNeb every 4 hours Change doxycycline to p.o. Wean off BiPAP as tolerated Has refused intubation Plan Tobacco dependency Multiple other medical problems as outlined in past medical history Attestations Medical Necessity Statement*: Needs continued hospitalization secondary to severe COPD exacerbation Coding Level of Care Code Acute Code for g Fwd Diagnoses Acute respiratory failure with hypoxia and hypercapnia J96.01; J96.02 Acute exacerbation of chronic obstructive airways disease J44.1
[2022-04-20] MEDS: dexmedetomidine 400 MCG in sodium chloride 0.9% (100 ml) 100 ML 10.02 MCG IV (09:42)
[2022-04-20] MEDS: verapamil ER 180 mg Tablet 360 MG PO (10:18)
--- NOTE | 2022-04-20 10:37 | PC.CHAP ---
Pastoral Care Encounter/Spiritual Assessment Type of Contact [] Declined transplant rn visit [] Patient/Family/Request visit [] Outpatient visit [] Follow-up visit [] Physician referral [] Code/Alert [x] Routine visit [] Staff referral [] Actively dying [] Patient sleeping [] Family support [] [] Out of room [] Palliative care [] [x] Receiving care in room [] Pre-surgical visit [] Trauma [] Long length of stay [x] ICU visit [] Other: Relational/Emotional Strength [] Patient feels connected with others/family/visitors/staff [] Distress [] Loneliness/isolation [] Abandonment Spirituality of Patient [] Person of Saumya [] Attends Hinduism of their Saumya [] Believes in Prayer [] Reads Bible or Rastafari materials [] There are Spiritual issues to be addressed [employer] Interventions [x] Prayer [] Active listening [] Non-anxious presence [] Spiritual/emotional support [] Crisis/trauma care [] Spiritual counseling [] Bereavement support [] Provided bereavement packet [] Provided Bible/devotional materials [] Provided toy/stuffed animal, coloring book to patient or family member [] Provided Communion [] Anointing/[place] [] Salvation [x] Completed spiritual assessment [] Other: Impact on Illness or Injury [] Angry [] Fearful [] Anxious [] Often cries [] Exhaustion [] Unable to work [] Unable to attend jew [] Unable to walk/stand [] Unable to read [] Unable to drive [] Unable to eat/drink [] Unable to sleep [] Unable to be with family [] Patient intubated [] Other: Summary Time spent with patient
--- NOTE | 2022-04-20 19:44 | PC.NURSE ---
Report called to Anna. Patient and belongings taken to room 253-1 by shift nurse manager staff. Family notified.
[2022-04-21] VITALS (18 sets, daily range): BP systolic 123–155; BP diastolic 68–72; PULSE 77–105; RESP 17–26; TEMP 36.4–36.8; O2SAT 90–97
[2022-04-21] MEDS: ipratropium-albuterol 3 mL Neb INHALATION ×6 (03:35→23:01)
[2022-04-21 05:28] LABS: Basophils % 0.2 %; Hemoglobin 13.9 g/dL (11.7-16.6); Lymphocytes # 0.5 10^3/uL (0.8-4.8); Mean Corpuscular HGB Conc 31.6 g/dL (30.0-36.0); Mean Corpuscular Volume 94.8 fl (80-94); Monocytes # 0.6 10^3/uL (0.2-0.9); Monocytes % 4.9 %; Neutrophils # 10.97 10^3/uL (1.8-7.7); Neutrophils % 90.4 %; Nucleated Red Blood Cells % 0 %; Platelet Count 209 10^3/cmm (130-400); Red Blood Count 4.64 10^6/uL (4.1-5.3); Red Cell Distribution Width 13.8 % (12.1-15.1); White Blood Count 12.1 10^3/uL (4.0-10.0)
[2022-04-21 05:51] LABS: Anion Gap 9.1 (5-19); Blood Urea Nitrogen 49 mg/dL (8-23); Calcium 9.9 mg/dL (8.5-10.5); Carbon Dioxide 34 mmol/L (22-29); Chloride 100 mmol/L (98-107); Glomerular Filtration Rate 135.2 mL/min (90-130); Glucose 160 mg/dL (65-115); Magnesium 2.6 mg/dL (1.7-2.3); Osmolality Calculated 304 mOsm/kg (285-295); Potassium 4.1 mmol/L (3.5-5.1); Sodium 139 mmol/L (136-145)
[2022-04-21] MEDS: budesonide 0.5 mg/2 mL Neb INHALATION ×2 (07:24→19:22)
[2022-04-21] MEDS: enoxaparin 40 mg/0.4 mL Syringe SUBCUT (09:59)
[2022-04-21] MEDS: LORazepam 2 mg/mL INJ 1 mL 0.5 MG IVP ×2 (09:59→21:04)
[2022-04-21] MEDS: gabapentin 300 mg Capsule 600 MG PO ×3 (10:00→20:43)
[2022-04-21] MEDS: aspirin 81 mg Chew Tablet PO (10:00)
[2022-04-21] MEDS: pantoprazole DR 40 mg Tablet PO (10:00)
[2022-04-21] MEDS: lisinopril 20 mg Tablet PO ×2 (10:00→18:41)
[2022-04-21] MEDS: atorvastatin 40 mg Tablet 20 MG PO (10:00)
[2022-04-21] MEDS: duloxetine 30 mg Capsule PO ×2 (10:01→18:41)
[2022-04-21] MEDS: verapamil ER 180 mg Tablet 360 MG PO (10:21)
--- NOTE | 2022-04-21 14:15 | PM.PN ---
Subjective Subjective: Seen today. Patient feels short of breath. He is also wheezing. Does have baseline COPD. Also has been having diarrhea. Vitals/I&O/Wt Last Vital Signs Temp 97.6 F 04/21/22 04:07 Pulse 104 H 04/21/22 11:29 Resp 22 H 04/21/22 11:29 BP 155/71 04/21/22 08:00 Pulse Ox 97 04/21/22 11:29 O2 Del Method 04/21/22 11:29 O2 Flow Rate 2 04/21/22 11:29 FiO2 35 04/21/22 03:37 04/20/22 04/21/22 04/21/22 22:59 06:59 14:59 Intake Total 257.257 / 626.983 480 / 1106.983 Output Total 300 / 900 Balance -42.743 / -273.017 480 / 206.983 Weight last 48 hrs Weight 75.892 kg Weight 75.4 kg Physical Exam Narrative: General exam alert and oriented, appears short of breath. Also appears anxious. Cardiovascular regular rate and rhythm without murmur Lungs: Significant wheezing bilaterally, mild rhonchi also present. Abdomen is soft, positive bowel sounds Extremities no cyanosis clubbing or edema, cap refill brisk Skin without rash Urinary Catheter Management: Huff: Cath Placed During This Visit: yes Reason for Continuing Indwelling Catheter: Accurate Measurement of Urinary Output in Critically Ill Patients Urinary Catheter Date of Insertion: 04/19/22 Urinary Catheter Time of Insertion: 14:35 Data 04/21/22 04:54 04/21/22 04:54 Micro: Microbiology 04/21/22 04:55 Bacterial Antigens - Final Urine,Clean Catch 04/19/22 09:55 Blood Culture - Preliminary Blood NEGATIVE TO DATE 04/19/22 09:45 Blood Culture - Preliminary Blood NEGATIVE TO DATE A&P Assessment and plan (1) Acute respiratory failure with hypoxia and hypercapnia: (2) Acute exacerbation of chronic obstructive airways disease: (3) Exertional dyspnea: (4) Cigarette smoker: (5) Hyperlipidemia, mixed: (6) Essential hypertension: (7) COPD (chronic obstructive pulmonary disease): Plan #COPD exacerbation #Acute respiratory failure with hypoxia and hypercapnia?requiring BiPAP on admission #Nicotine dependence #Diarrhea #HTN - lisinopril 20 bid ? Solu-Medrol 40 every 8 hours ? Pulmicort inhalation twice daily ? Add azithromycin as anti-inflammatory ? Continue Ativan as needed for anxiety ? Continue BiPAP use as needed ? We will check C. difficile and stool culture ? Patient and son interested in going to [facility]. Case management updated Duoneb q4H [facility] Patient has refused intubation Attestations Medical Necessity Statement*: Continue medical management. Coding Level of Care Code Acute Code for [facility] Fwd Diagnoses Acute respiratory failure with hypoxia and hypercapnia J96.01; J96.02 Acute exacerbation of chronic obstructive airways disease J44.1 Exertional dyspnea R06.00 Cigarette smoker F17.210 Hyperlipidemia, mixed E78.2 Essential hypertension I10 COPD (chronic obstructive pulmonary disease) J44.9
[2022-04-21 15:13] LABS: ABG PH Result 7.35 (7.35-7.45); Arterial Blood Gas Hematocrit 44.9 % (42-52); Blood Gas Allen Test Pos; Blood Gas Sample Type Arterial; HCO3 ABG 35.1 mmol/L (22-26); HGB O2 Sat 90.7 % (95-100); Ionized Calcium Level - ABG 1.3 mmol/L (1.1-1.4); Methemoglobin 0.2 % (0.4-1.5); Oxygen Saturation ABG 91.8; PO2 ABG 61.6 mmHg (80.0-100.0); Potassium Level - ABG 4.3 mmol/L (3.5-5.0); Total Hemoglobin 14.6 g/dL (14-18)
[2022-04-21 15:14] LABS: Alveolar-Arterial Oxygen Gradi 19.1 mmHg (5-10); Blood Gas Operator Identificat ED; Blood Gas Sample Site Radial, left; Oxygen Device NC
[2022-04-21 15:15] LABS: ABG PCO2 64.1 mmHg (35-45)
[2022-04-21] MEDS: TRAMadol 50 mg Tablet PO (18:48)
[2022-04-22] VITALS (23 sets, daily range): BP systolic 143–184; BP diastolic 65–84; PULSE 65–92; RESP 13–20; TEMP 36.3–37.2; O2SAT 90–98
[2022-04-22] MEDS: ipratropium-albuterol 3 mL Neb INHALATION ×6 (03:00→23:35)
[2022-04-22 05:48] LABS: Basophils % 0.1 %; Hematocrit 43.9 % (42.0-52.0); Hemoglobin 13.9 g/dL (11.7-16.6); Lymphocytes # 0.7 10^3/uL (0.8-4.8); Lymphocytes % 6.1 %; Mean Corpuscular HGB Conc 31.7 g/dL (30.0-36.0); Mean Corpuscular Volume 94.8 fl (80-94); Mean Platelet Volume 10.1 fL (7.4-10.4); Monocytes # 0.7 10^3/uL (0.2-0.9); Monocytes % 6.1 %; Neutrophils # 9.97 10^3/uL (1.8-7.7); Nucleated Red Blood Cells % 0 %; Platelet Count 226 10^3/cmm (130-400); Red Blood Count 4.63 10^6/uL (4.1-5.3); Red Cell Distribution Width 13.7 % (12.1-15.1); White Blood Count 11.5 10^3/uL (4.0-10.0)
[2022-04-22 06:24] LABS: Anion Gap 8.1 (5-19); Blood Urea Nitrogen 42 mg/dL (8-23); Calcium 9.6 mg/dL (8.5-10.5); Carbon Dioxide 37 mmol/L (22-29); Chloride 103 mmol/L (98-107); Glomerular Filtration Rate 113.2 mL/min (90-130); Glucose 154 mg/dL (65-115); Osmolality Calculated 310 mOsm/kg (285-295); Potassium 5.1 mmol/L (3.5-5.1); Sodium 143 mmol/L (136-145)
[2022-04-22] MEDS: budesonide 0.5 mg/2 mL Neb INHALATION ×2 (07:45→19:31)
--- NOTE | 2022-04-22 07:57 | PM.PN ---
Subjective Subjective: no acute events overnight breathing is better but not back to baseline yet Vitals/I&O/Wt Last Vital Signs Temp 97.8 F 04/22/22 04:20 Pulse 91 04/22/22 07:52 Resp 18 04/22/22 07:45 BP 143/84 04/22/22 04:20 Pulse Ox 96 04/22/22 07:45 O2 Del Method 04/22/22 07:45 O2 Flow Rate 3 04/22/22 07:45 FiO2 35 04/22/22 03:00 04/21/22 04/22/22 04/22/22 22:59 06:59 14:59 Intake Total 840 / 840 Output Total 1500 / 1500 300 / 1800 Balance -660 / -660 -300 / -960 Weight last 48 hrs Weight 73.255 kg Weight 75.892 kg Physical Exam Narrative: General exam alert and oriented, appears short of breath. Also appears anxious. Cardiovascular regular rate and rhythm without murmur Lungs: moderate wheezing bilaterally, mild rhonchi also present. Abdomen is soft, positive bowel sounds Extremities no cyanosis clubbing or edema, cap refill brisk Skin without rash Urinary Catheter Management: Huff: Cath Placed During This Visit: yes Reason for Continuing Indwelling Catheter: Acute Urinary Retention or Obstruction Urinary Catheter Date of Insertion: 04/19/22 Urinary Catheter Time of Insertion: 14:35 Data 04/22/22 05:10 04/22/22 05:10 Micro: Microbiology 04/21/22 04:55 Bacterial Antigens - Final Urine,Clean Catch A&P Assessment and plan (1) Acute respiratory failure with hypoxia and hypercapnia: (2) Acute exacerbation of chronic obstructive airways disease: (3) Exertional dyspnea: (4) Cigarette smoker: (5) Hyperlipidemia, mixed: (6) Essential hypertension: (7) COPD (chronic obstructive pulmonary disease): Plan #COPD exacerbation #Acute respiratory failure with hypoxia and hypercapnia?requiring BiPAP on admission #Nicotine dependence #Diarrhea #HTN - lisinopril 20 bid ? Solu-Medrol 40 every 8 hours ? Pulmicort inhalation twice daily ? Continue azithromycin as anti-inflammatory ? Continue Ativan as needed for anxiety ? Continue BiPAP use as needed ? No BM overnight ? Patient and son interested in going to [facility]. Case management updated Duoneb q4H [facility] Patient has refused intubation Attestations Medical Necessity Statement*: Continue medical management. Coding Level of Care Code Acute Code for Chg Fwd Diagnoses Acute respiratory failure with hypoxia and hypercapnia J96.01; J96.02 Acute exacerbation of chronic obstructive airways disease J44.1 Exertional dyspnea R06.00 Cigarette smoker F17.210 Hyperlipidemia, mixed E78.2 Essential hypertension I10 COPD (chronic obstructive pulmonary disease) J44.9
[2022-04-22] MEDS: verapamil ER 180 mg Tablet 360 MG PO (09:17)
[2022-04-22] MEDS: lisinopril 20 mg Tablet PO ×2 (09:18→17:59)
[2022-04-22] MEDS: aspirin 81 mg Chew Tablet PO (09:18)
[2022-04-22] MEDS: duloxetine 30 mg Capsule PO ×2 (09:18→17:59)
[2022-04-22] MEDS: gabapentin 300 mg Capsule 600 MG PO ×3 (09:18→20:56)
[2022-04-22] MEDS: pantoprazole DR 40 mg Tablet PO (09:18)
[2022-04-22] MEDS: atorvastatin 40 mg Tablet 20 MG PO (09:18)
[2022-04-22] MEDS: nicotine 21 mg Patch 1 PATCH TRANSDERMA (09:19)
[2022-04-22] MEDS: enoxaparin 40 mg/0.4 mL Syringe SUBCUT (09:19)
--- NOTE | 2022-04-22 11:42 | PC.SOCIAL ---
IMM Update pg 2 of IMM updated and reviewed w/ patient. Copy provided and Copy in chart dated and initialed.
[2022-04-22] MEDS: TRAMadol 50 mg Tablet PO (14:31)
[2022-04-22] MEDS: azithromycin 250 mg Tablet 500 MG PO (14:32)
--- NOTE | 2022-04-22 19:58 | PC.NURSE ---
Bedside report and allergy and name band check was done with MELIDA Silverman at shift change
[2022-04-23] VITALS (14 sets, daily range): BP systolic 126–153; BP diastolic 66–80; PULSE 56–100; RESP 13–20; TEMP 36.4–37.2; O2SAT 90–98
[2022-04-23] MEDS: ipratropium-albuterol 3 mL Neb INHALATION ×3 (03:57→12:32)
[2022-04-23 04:57] LABS: Basophils % 0.1 %; Hematocrit 43.5 % (42.0-52.0); Hemoglobin 13.8 g/dL (11.7-16.6); Lymphocytes # 0.7 10^3/uL (0.8-4.8); Mean Corpuscular HGB Conc 31.7 g/dL (30.0-36.0); Mean Corpuscular Hemoglobin 29.9 pg (28.0-34.0); Mean Corpuscular Volume 94.2 fl (80-94); Mean Platelet Volume 10.2 fL (7.4-10.4); Monocytes # 0.4 10^3/uL (0.2-0.9); Monocytes % 3.8 %; Neutrophils # 8.17 10^3/uL (1.8-7.7); Neutrophils % 88.5 %; Nucleated Red Blood Cells % 0 %; Platelet Count 226 10^3/cmm (130-400); Red Blood Count 4.62 10^6/uL (4.1-5.3); Red Cell Distribution Width 13.3 % (12.1-15.1); White Blood Count 9.2 10^3/uL (4.0-10.0)
[2022-04-23 05:11] LABS: Anion Gap 7.2 (5-19); Blood Urea Nitrogen 34 mg/dL (8-23); Calcium 8.9 mg/dL (8.5-10.5); Carbon Dioxide 37 mmol/L (22-29); Chloride 102 mmol/L (98-107); Glomerular Filtration Rate 135.2 mL/min (90-130); Glucose 154 mg/dL (65-115); Osmolality Calculated 303 mOsm/kg (285-295); Potassium 5.2 mmol/L (3.5-5.1); Sodium 141 mmol/L (136-145)
[2022-04-23] MEDS: budesonide 0.5 mg/2 mL Neb INHALATION ×2 (08:41→20:07)
[2022-04-23] MEDS: enoxaparin 40 mg/0.4 mL Syringe SUBCUT (09:04)
[2022-04-23] MEDS: verapamil ER 180 mg Tablet 360 MG PO (09:05)
[2022-04-23] MEDS: atorvastatin 40 mg Tablet 20 MG PO (09:06)
[2022-04-23] MEDS: pantoprazole DR 40 mg Tablet PO (09:06)
[2022-04-23] MEDS: lisinopril 20 mg Tablet PO ×2 (09:06→17:21)
[2022-04-23] MEDS: gabapentin 300 mg Capsule 600 MG PO ×3 (09:06→21:15)
[2022-04-23] MEDS: aspirin 81 mg Chew Tablet PO (09:06)
[2022-04-23] MEDS: duloxetine 30 mg Capsule PO ×2 (09:06→17:21)
[2022-04-23] MEDS: TRAMadol 50 mg Tablet PO ×2 (09:07→21:48)
[2022-04-23] MEDS: azithromycin 250 mg Tablet 500 MG PO (09:07)
--- NOTE | 2022-04-23 11:25 | P.PN_ITS ---
Subjective Subjective: Patient was tripoding when I examined him mild wheezing positive We will stay 1 more day Spoke with his son as well Currently is on 3 L Seem like he is suffering from end-stage COPD lost 100 pounds last 12 months, they might opt for palliative care at the assisted Vitals/I&O/Wt Last Vital Signs Temp 97.6 F 04/23/22 07:59 Pulse 100 04/23/22 08:43 Resp 20 H 04/23/22 08:43 BP 146/77 04/23/22 07:59 Pulse Ox 94 04/23/22 08:43 O2 Del Method 04/23/22 08:43 O2 Flow Rate 3 04/23/22 08:43 FiO2 35 04/23/22 03:57 04/22/22 04/23/22 04/23/22 22:59 06:59 14:59 Intake Total 240 / 720 480 / 1200 240 / 240 Output Total 300 / 300 Balance -60 / 420 480 / 900 240 / 240 Weight last 48 hrs Weight 74.389 kg Weight 73.255 kg Physical Exam Narrative: Patient was tripoding however no active cyanosis Saturating well Requiring 2 to 3 L of oxygen Mild wheezing positive Significant muscle mass loss S1, S2 Abdomen soft Awake and alert, nonfocal neuro exam Urinary Catheter Management: Huff: Cath Placed During This Visit: yes, but has since been removed by the nurse Reason for Continuing Indwelling Catheter: Decision to DC Catheter Urinary Catheter Date of Insertion: 04/19/22 Urinary Catheter Time of Insertion: 14:35 Date Urinary Catheter Removed: 04/23/22 Time Urinary Catheter Discontinued: 06:25 Data 04/23/22 04:11 04/23/22 04:11 A&P Assessment and plan (1) Acute encephalopathy: (2) Acute respiratory failure with hypoxia and hypercapnia: (3) Acute exacerbation of chronic obstructive airways disease: (4) Cigarette smoker: (5) COPD (chronic obstructive pulmonary disease): Plan 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, active smoking, noncompliance, uses 3 L of oxygen on and off Son is stating that for now they would like to take him to [facility] tomorrow and might opt for hospice/palliative care Patient is stating he is DNR/DNI He is agreeable with the plan to go to assisted then offer palliative care in case he gets worse He is stating that he would try to quit smoking Continue azithromycin for anti-inflammatory effect Patient has been afebrile Continue steroids he still has mild wheezing Hyperkalemia patient requires DuoNeb quite frequently like to observe BMP for tomorrow No need of Kayexalate Attestations Medical Necessity Statement*: Discharge tomorrow to assisted p Time Spent in Patient Care: 30 Coding Level of Care Code Acute Code for Chg Fwd Diagnoses Acute encephalopathy G93.40 Acute respiratory failure with hypoxia and hypercapnia J96.01; J96.02 Acute exacerbation of chronic obstructive airways disease J44.1 Cigarette smoker F17.210 COPD (chronic obstructive pulmonary disease) J44.9
[2022-04-23] MEDS: albuterol 2.5 mg/3 mL Neb INHALATION ×2 (15:28→20:07)
[2022-04-23] MEDS: ipratropium 0.5 mg/2.5 mL Neb INHALATION ×2 (15:28→20:08)
[2022-04-23] MEDS: hyDRALAzine 25 mg Tablet PO (17:21)
[2022-04-24] VITALS (9 sets, daily range): BP systolic 114–170; BP diastolic 72–98; PULSE 72–95; RESP 13–18; TEMP 36.6–36.7; O2SAT 94–99
[2022-04-24] MEDS: albuterol 2.5 mg/3 mL Neb INHALATION ×3 (03:10→08:23)
[2022-04-24] MEDS: ipratropium 0.5 mg/2.5 mL Neb INHALATION ×3 (03:10→08:23)
[2022-04-24 03:20] LABS: Potassium 4.7 mmol/L (3.5-5.1)
--- NOTE | 2022-04-24 08:13 | PM.DCS ---
Discharge Providers Date of Admission: 04/19/22 00:38 Date of Discharge: April 24, 2022 Attending Provider at Admission: Maurilio Katz MD Attending Provider at Discharge: Anjana Thao MD Primary Care Provider: BELÉN Brink Diagnoses at Discharge Discharge Diagnosis (1) Acute encephalopathy: Status: Acute (2) Acute respiratory failure with hypoxia and hypercapnia: Status: Acute (3) Acute exacerbation of chronic obstructive airways disease: Status: Acute (4) Cigarette smoker: Status: Chronic (5) COPD (chronic obstructive pulmonary disease): Status: Chronic Reason for Visit Reason for Visit: sob Hospital Course Hospital Course 66-year male who has established history of COPD, nicotine dependence, active smoker presented with COPD exacerbation with active wheezing, BiPAP was used to decrease his work of breathing, for his wheezing IV steroids were given along with budesonide which seemed to help his SOB. Patient lost 100 pounds in last 12 months, he gets easily short of breath with minimal walking, multiple family meetings conducted patient and his son both decided to pursue long-term placement and then hospice care in case of further worsening. At the time of discharge I will prescribe him nebulizer that he does not have capacity to inhale all medications. Physical Exam Narrative: Son at the bedside Patient is on 3 L of oxygen Uses 2-3 L at baseline at home abd soft No active wheezing EOMI PERRLA Urinary Catheter Management: Huff: Cath Placed During This Visit: yes, but has since been removed by the nurse Reason for Continuing Indwelling Catheter: Decision to DC Catheter Urinary Catheter Date of Insertion: 04/19/22 Urinary Catheter Time of Insertion: 14:35 Date Urinary Catheter Removed: 04/23/22 Time Urinary Catheter Discontinued: 06:25 Discharge Data Studies Completed and Pending Completed Studies During Hospitalization Category Date Time Status XR chest 1V portable [id number] Stat Exams 04/18/22 20:52 Completed Pending at discharge Category Date Time Status Blood Culture Routine Lab 04/19/22 09:55 Results Sputum Culture and Gram Stain Stat Lab 04/18/22 22:59 Uncollected Radiology Impressions Chest X-Ray 04/18/22 20:52 IMPRESSION: No acute findings. Laboratory Results WBC 9.2 10^3/uL (4.0-10.0) 04/23/22 04:11 RBC 4.62 10^6/uL (4.1-5.3) 04/23/22 04:11 Hgb 13.8 g/dL (11.7-16.6) 04/23/22 04:11 Hct 43.5 % (42.0-52.0) 04/23/22 04:11 MCV 94.2 fl (80-94) H 04/23/22 04:11 MCH 29.9 pg (28.0-34.0) 04/23/22 04:11 MCHC 31.7 g/dL (30.0-36.0) 04/23/22 04:11 RDW 13.3 % (12.1-15.1) 04/23/22 04:11 Plt Count 226 10^3/cmm (130-400) 04/23/22 04:11 MPV 10.2 fL (7.4-10.4) 04/23/22 04:11 Neut % (Auto) 88.5 % 04/23/22 04:11 Lymph % (Auto) 7.0 % 04/23/22 04:11 [place] % (Auto) 3.8 % 04/23/22 04:11 Eos % (Auto) 0.0 % 04/23/22 04:11 Baso % (Auto) 0.1 % 04/23/22 04:11 Neut # (Auto) 8.17 10^3/uL (1.8-7.7) H 04/23/22 04:11 Lymph # (Auto) 0.7 10^3/uL (0.8-4.8) L 04/23/22 04:11 [place] # (Auto) 0.4 10^3/uL (0.2-0.9) 04/23/22 04:11 Eos # (Auto) 0.0 10^3/uL (0.0-0.8) 04/23/22 04:11 Baso # (Auto) 0.0 10^3/uL (0.0-0.1) 04/23/22 04:11 Nucleated RBC % (auto) 0 % 04/23/22 04:11 Nucleated RBCs # 0.0 /100WBC 04/23/22 04:11 Specimen Type Arterial 04/21/22 15:03 Sample Site Radial, left 04/21/22 15:03 ABG pH 7.35 (7.35-7.45) 04/21/22 15:03 ABG pCO2 64.1 mmHg (35-45) H* 04/21/22 15:03 ABG pO2 61.6 mmHg (80.0-100.0) L 04/21/22 15:03 ABG HCO3 35.1 mmol/L (22-26) H 04/21/22 15:03 ABG O2 Saturation 91.8 04/21/22 15:03 ABG Base Excess 7.0 mmol/L (-2.0-2.0) H 04/21/22 15:03 Osvaldo Test Pos 04/21/22 15:03 A-a O2 Gradient 19.1 mmHg (5-10) H 04/21/22 15:03 Hematocrit 44.9 % (42-52) 04/21/22 15:03 Hgb O2 Saturation 90.7 % (95-100) L 04/21/22 15:03 Carboxyhemoglobin 1.0 %THgb (0.4-20.1) 04/21/22 15:03 Methemoglobin 0.2 % (0.4-1.5) L 04/21/22 15:03 Total Hemoglobin 14.6 g/dL (14-18) 04/21/22 15:03 Sodium 141.0 mmol/L (131-143) 04/21/22 15:03 Potassium 4.3 mmol/L (3.5-5.0) 04/21/22 15:03 Glucose 149.0 mg/dL (70-115) H 04/21/22 15:03 Ionized Calcium 1.3 mmol/L (1.1-1.4) 04/21/22 15:03 O2 Delivery Device Nc 04/21/22 15:03 O2 Liters/Min 5.0 % 04/21/22 15:03 FiO2 40.0 % 04/21/22 15:03 Fabric Worker ID Ed 04/21/22 15:03 Sodium 141 mmol/L (136-145) 04/23/22 04:11 Potassium 4.7 mmol/L (3.5-5.1) 04/24/22 02:32 Chloride 102 mmol/L (98-107) 04/23/22 04:11 Carbon Dioxide 37 mmol/L (22-29) H 04/23/22 04:11 Anion Gap 7.2 (5-19) 04/23/22 04:11 BUN 34 mg/dL (8-23) H 04/23/22 04:11 Creatinine 0.6 mg/dL (0.7-1.2) L 04/23/22 04:11 GFR Calculation 135.2 mL/min (90-130) H 04/23/22 04:11 Glucose 154 mg/dL (65-115) H 04/23/22 04:11 Estimat Average Glucose 117 04/18/22 20:46 Hemoglobin A1c 5.7 % (4.0-6.0) 04/18/22 20:46 Calculated Osmolality 303 mOsm/kg (285-295) H 04/23/22 04:11 Lactic Acid 2.1 mmol/L (0.5-2.2) 04/18/22 20:46 Lactic Acid (Sepsis) 1.3 mmol/L (0.5-2.2) 04/19/22 03:38 Calcium 8.9 mg/dL (8.5-10.5) 04/23/22 04:11 Phosphorus 3.4 mg/dL (2.5-4.5) 04/18/22 20:46 Magnesium 2.6 mg/dL (1.7-2.3) H 04/21/22 04:54 Total Bilirubin 0.4 mg/dL (0.15-1.2) 04/19/22 10:12 AST 32 U/L (0-40) 04/19/22 10:12 ALT 26 U/L (0-41) 04/19/22 10:12 Alkaline Phosphatase 100 U/L (40-130) 04/19/22 10:12 Troponin T Gen 5 ng/L 28 ng/L (0-15) H 04/18/22 20:46 C-Reactive Protein 57.2 mg/L (0.0-4.9) H 04/18/22 20:46 NT-Pro-B Natriuret Pep 522 pg/mL (0-125) H 04/18/22 20:46 NT-Pro-B Natriuret Pep Cancelled 04/18/22 20:46 Total Protein 7.5 g/dL (6.6-8.7) 04/19/22 10:12 Albumin 4.1 g/dL (3.5-5.2) 04/19/22 10:12 Globulin 3.4 g/dL (1.3-4.6) 04/19/22 10:12 Triglycerides Cancelled 04/19/22 10:12 Cholesterol Cancelled 04/19/22 10:12 LDL Cholesterol, Calc Cancelled 04/19/22 10:12 HDL Cholesterol Cancelled 04/19/22 10:12 LDL/HDL Ratio Cancelled 04/19/22 10:12 Cholesterol/HDL Ratio Cancelled 04/19/22 10:12 Procalcitonin 0.12 ng/mL (0-0.5) 04/18/22 20:46 TSH 0.34 uIU/mL (0.27-4.20) 04/19/22 10:12 Urine Color Yellow (Yellow) 04/19/22 11:46 Urine Appearance Clear (CLEAR) 04/19/22 11:46 Urine pH 5 (5-7) 04/19/22 11:46 Ur Specific [place] 1.025 (1.005-1.030) 04/19/22 11:46 Urine Protein Neg (Negative) 04/19/22 11:46 Urine Glucose (UA) Norm (Normal) 04/19/22 11:46 Urine Ketones Negative (Negative) 04/19/22 11:46 Urine Blood Neg (Negative) 04/19/22 11:46 Urine Nitrate Negative (Negative) 04/19/22 11:46 Urine Bilirubin Neg (Negative) 04/19/22 11:46 Urine Urobilinogen Neg mg/dL (Negative) 04/19/22 11:46 Ur Leukocyte Esterase Negative (Negative) 04/19/22 11:46 Influenza Type A Ag negative (Negative) 04/18/22 22:45 Influenza Type B Ag negative (Negative) 04/18/22 22:45 SARS-CoV-2 Ag (Rapid) negative (Negative) 04/18/22 22:45 Vitals Last Vital Signs Temp 97.8 F 04/24/22 04:00 Pulse 76 04/24/22 06:00 Resp 16 04/24/22 04:00 BP 166/98 04/24/22 04:00 Pulse Ox 99 04/24/22 04:00 O2 Del Method 04/24/22 04:00 O2 Flow Rate 3 04/24/22 00:02 FiO2 35 04/24/22 03:13 Discharge Plan Discharge Patient Disposition: Xfer [facility] Condition: Fair Prescriptions: New albuterol sulfate 1.25 mg/3 mL solution for nebulization 1.25 mg inhalation Q8H PRN (Reason: shortness of breath or wheezing) Qty: 90 0RF azithromycin 250 mg tablet 250 mg PO Q48H 14 Days Qty: 7 0RF Rx Instructions: start on day 2 of therapy morphine concentrate 10 mg/0.5 mL syringe 5 mg PO Q6H PRN (Reason: pain) Qty: 1 0RF Continued verapamil 360 mg capsule,ext rel. pellets 24 hr 360 mg PO DAILY Qty: 90 0RF tramadol 50 mg tablet 50 mg PO Q8H Qty: 120 2RF lisinopril-hydrochlorothiazide 20-12.5 mg tablet 1 tab PO BID Qty: 180 0RF albuterol sulfate 90 mcg/actuation HFA aerosol inhaler 2 puff inhalation Q6H PRN (Reason: shortness of breath or wheezing) Qty: 25.5 1RF formoterol fumarate [Perforomist] 20 mcg/2 mL solution for nebulization 2 ml inhalation Q12H Qty: 1800 1RF duloxetine 30 mg capsule,delayed release(DR/EC) 30 mg PO BID Qty: 180 0RF Spiriva with HandiHaler 18 mcg capsule, w/inhalation device 1 cap inhalation DAILY Qty: 90 1RF Rx Instructions: puncture 1 cap using device; one dose = 2 inhalations albuterol sulfate 1.25 mg/3 mL solution for nebulization 1.25 mg inhalation QID PRN (Reason: Shortness Of Breath) Pulmicort 0.5 mg/2 mL suspension for nebulization 0.5 mg inhalation BID Qty: 1800 3RF Discontinued atorvastatin 20 mg tablet 20 mg PO DAILY Qty: 90 0RF gabapentin 800 mg tablet 1,600 mg PO Q12H Qty: 360 0RF aspirin 81 mg tablet,chewable 81 mg PO DAILY Discharge Orders: Discharge Order (Routine); Ordered 04/24/22 Ordered By: Anjana Thao Referrals: Surendra Rizzo FNP-C [Primary Care Provider] - 05/03/22 10:40 am Patient Instructions: Albuterol (By breathing) (ProAir, AccuNeb, Proventil, Proventil..., Azithromycin (By mouth) (Zithromax, Zithromax Tri-Get, Zithromax..., Cigarette Smoking and Your Health (GEN), COPD (Chronic Obstructive Pulmonary Disease) (DC), Acute Respiratory Failure (GEN) Discharge Attestations Time Spent in Discharge Care*: less than 30 min Quality Metrics Clinical Quality Measures [ No reported AMI, CVA or VTE this stay] Coding Level of Care Code Acute Chg FW DC note Diagnoses Acute encephalopathy G93.40 Acute respiratory failure with hypoxia and hypercapnia J96.01; J96.02 Acute exacerbation of chronic obstructive airways disease J44.1 Cigarette smoker F17.210 COPD (chronic obstructive pulmonary disease) J44.9
[2022-04-24] MEDS: budesonide 0.5 mg/2 mL Neb INHALATION (08:23)
[2022-04-24] MEDS: verapamil ER 180 mg Tablet 360 MG PO (09:45)
[2022-04-24] MEDS: gabapentin 300 mg Capsule 600 MG PO (09:45)
[2022-04-24] MEDS: pantoprazole DR 40 mg Tablet PO (09:45)
[2022-04-24] MEDS: lisinopril 20 mg Tablet PO (09:46)
[2022-04-24] MEDS: duloxetine 30 mg Capsule PO (09:46)
[2022-04-24] MEDS: azithromycin 250 mg Tablet PO (09:46)
[2022-04-24] MEDS: enoxaparin 40 mg/0.4 mL Syringe SUBCUT (09:46)
[2022-04-24] MEDS: hyDRALAzine 25 mg Tablet PO (09:46)
[2022-04-24] MEDS: atorvastatin 40 mg Tablet 20 MG PO (09:46)
[2022-04-24] MEDS: aspirin 81 mg Chew Tablet PO (09:46)
[2022-04-24] MEDS: TRAMadol 50 mg Tablet PO (09:51)
== END 2022-04-24 11:16 | disposition hospice, home (50) | DRG 189 ==
LOC: ER 04-19 00:18 → ER IP 04-19 01:08 → ICU 04-19 07:18 → MEDSURG 04-20 17:57
PROVIDERS: Internal Medicine; Admitting Provider Family Medicine; Emergency Provider Emergency Medicine; PCP Nurse Practitioner; Visit Provider Internal Medicine
DX: J96.01 Acute respiratory failure with hypoxia (principal); J44.1 Chronic obstructive pulmonary disease with (acute) exacerbation; G93.40 Encephalopathy, unspecified; J96.02 Acute respiratory failure with hypercapnia; E78.2 Mixed hyperlipidemia; E87.5 Hyperkalemia; M62.50 Muscle wasting and atrophy, not elsewhere classified, unspecified site; R19.7 Diarrhea, unspecified; F17.210 Nicotine dependence, cigarettes, uncomplicated; Z91.199 Patient's noncompliance with other medical treatment and regimen due to unspecified reason; Z66 Do not resuscitate; Z79.52 Long term (current) use of systemic steroids; Z99.81 Dependence on supplemental oxygen
CPT/HCPCS: 36415; 36600; 51702; 71045; 80048; 80051; 80053; 81003; 82330; 82805; 83036; 83605; 83735; 83880; 84100; 84132; 84145; 84443; 84484; 85025; 86140; 86403; 87040; 87426; 87804; 92523; 92526; 92610; 93005; 94640; 94660; 96372; 96374; 96375; 99291; C9113; J1650; J2060; J2920; J2930; J3490; J7040; J7613; J7626; J7644; Q0144

== ENCOUNTER → 2022-07-12 10:47 | Outpatient (BNVA) | payer MEDICARE, SELFPAY | PROVIDERS: PCP Nurse Practitioner; Visit Provider Nurse Practitioner | DX: J44.9 Chronic obstructive pulmonary disease, unspecified (principal); I10 Essential (primary) hypertension | CPT/HCPCS: 80053; 80061; 82607; 84443 ==

== ENCOUNTER 2022-09-07 12:07 | Emergency (ER) | payer MEDICARE, SELFPAY ==
[2022-09-07 12:09] VITALS: BMI 25.1
--- NOTE | 2022-09-07 12:16 | XR_ITS ---
WS: [id number] Portable AP upright chest, 09/07/2022 Clinical Data: dyspnea Comparison: Portable chest, 04/18/2022. Findings: No nodules, masses or effusions are seen. The heart is normal. The pulmonary vascularity is not increased. No pneumonia or pneumothorax is seen. The diaphragms are flattened. The aortic arch a nd descending thoracic aorta show mild tortuosity. XR/XR chest 1V portable [id number] Impression: Atherosclerosis and hyperinflation.
--- NOTE | 2022-09-07 12:16 | XR_ITS ---
WS: [id number] KUB, AP portable supine, 09/07/2022 Clinical Data: constipation Comparison: None. Findings: No abnormal intraabdominal masses or calcifications are seen. There is no dilatated small bowel or ev idence of obstruction. There is a large amount of fecal material throughout the colon. Vascular calcifications are noted. Th ere is osteoarthritic change of the lumbar spine. XR/XR abdomen 1V* [id number] Impression: Large amount of fecal. In the colon.
[2022-09-07 12:17] VITALS: PULSE 97; RESP 20; O2SAT 97
--- NOTE | 2022-09-07 12:24 | ED_ITS ---
HPI - SOB/Dyspnea General: Chief Complaint: Shortness of Breath/Dyspnea Stated Complaint: SOB Time Seen by Provider: 09/07/22 12:13 History of Present Illness: HPI Narrative: Patient presents to the ER by EMS from the [facility] for shortness of breath and dyspnea. Patient was there to be seen for abdominal pain and constipation because he had no bowel movement in the last 3 days. However he become diaphoretic and very short of breath in her waiting room he is initial O2 was 60% on home dose of 4 L per nasal cannula. Increased it to 6 L and was satting 91% when EMS came EMS gave him 125 mg Solu-Medrol [address] to the ER and that allowed him to be able to be decreased down back to 4 L and sat 95% he does have a history of COPD and hypertension. MD elicited complaint: shortness of breath Pertinent past history: COPD Onset (ago): hour(s) Timing: constant and improved Severity: moderate Exacerbating factors: nothing Relieving factors: oxygen and bronchodilators Known history of: COPD Associated symptoms: Reports diaphoresis Treatment prior to arrival: oxygen, bronchodilator and other (125 mg Solu- Medrol) Review of Systems General: Reports: 10 or more systems reviewed and unremarkable except in HPI and below Const: Reports: diaphoresis [facility] ED PFSH: Medical History Acute encephalopathy Acute exacerbation of chronic obstructive airways disease Acute respiratory failure with hypoxia and hypercapnia Cigarette smoker COPD (chronic obstructive pulmonary disease) Essential hypertension Exertional dyspnea Hyperlipidemia, mixed Lumbar neuralgia Surgical History History of cystostomy History of hemorrhoidectomy History of lumbar surgery Family History Other Cancer Diabetes Hyperlipidemia Hypertension Social History Smoking and tobacco status: current every day smoker cigarettes Packs smoked per day: 1 Years cigarettes smoked: 50 [ Other cigarette details: currently 1ppd ] Second hand smoke exposure: No Smoking risk assessment/counseling performed?: Yes Alcohol intake: current Alcohol intake frequency: holidays/special occasions only Desire information about alcohol rehabilitation?: No Counseling given: No Substance/Drug Use: unknown Desire information about substance/drug rehabilitation?: No Counseling given: No Adopted: No Caregiver/support person: Yes Lives independently: Yes Household members: none Housing: House Marital status: Number of children: 4 Number of grandchildren: 4 Highest education level completed: GED or Equivalent Current occupational status: retired Current occupational exposures/hazards: No Pets and animals: Yes Do you think of yourself as: Straight/Heterosexual Current gender identity: Male Physical Exam Const: COMMON NORMALS: no acute distress, average body habitus, patient oriented x3, no limitations, healthy appearing, alert and well nourished HENMT: COMMON NORMALS: normocephalic, atraumatic, hearing grossly normal bilaterally, external ears normal, Normal external nose present and moist oral mucous membranes HEAD & SCALP: normocephalic and atraumatic NOSE: Normal external nose present EXTERNAL EAR: Yes external ears normal Eye: COMMON NORMALS: Equal, round and reactive pupils present, EOMs intact bilaterally, conjunctivae normal and no scleral icterus CONJUNCTIVA: Yes conjunctivae normal PUPIL: Yes Equal, round and reactive pupils present Neck/C-Spine: COMMON NORMALS: full ROM, no lymphadenopathy, supple, no meningeal signs, no JVD and Thyroid normal THYROID: Thyroid normal Lymph: LYMPHATIC: no lymphadenopathy noted Chest: COMMONS NORMALS: normal inspection of the chest and normal palpation of entire chest wall Resp: EFFORT & INSPECTION: Yes able to speak in complete sentences and Yes symmetric chest movement AUSCULTATION: diminished lung sounds bilateral and diffuse Cardio: COMMON NORMALS: no JVD, regular rate, regular rhythm, S1 normal heart sound present, S2 normal heart sound present, No gallops present (Cardio), No clicks present (Cardio) and No murmurs present (Cardio) RATE: regular rate RHYTHM: regular rhythm HEART SOUNDS: S1 normal heart sound present and S2 normal heart sound present GI: COMMON NORMALS: Normal to inspection, nondistended, normoactive bowel sounds present, Soft to palpation, non-tender, No hepatosplenomegaly present and no masses PALPATION: Yes Soft to palpation and Yes No hepatosplenomegaly present : COMMON NORMALS: Yes no CVA tenderness BLADDER/KIDNEY EXAM: Yes no CVA tenderness Back/Pelvis: COMMON NORMALS: no CVA tenderness Neuro: COMMON NORMALS: patient oriented x3 SENSORIUM/ORIENTATION: Yes alert MENINGEAL SIGNS: Yes no meningeal signs Course Vital Signs: Vital signs: Vital Signs Pulse Rate 87 09/07/22 14:00 Respiratory Rate 20 H 09/07/22 12:17 Blood Pressure 157/74 09/07/22 14:00 Pulse Oximetry 98 09/07/22 14:00 Oxygen Delivery Me thod Nasal Cannula 09/07/22 14:00 Oxygen Flow Rate 4 09/07/22 13:30 MDM - SOB/Dyspnea Medical Decision Making Patient presents to the ER with complaints of shortness of breath and abdominal pain secondary to constipation. Patient was given DuoNeb treatment in route wh ich helped his breathing. X-rays was obtained which showed COPD changes in the lungs and a large amount of feces in the colon CBC and CMP UA and EKG was obtained which were all benign. Patient patient was give 10 mg Decadron IV will be discharged home on prednisone. Patient should follow-up with his PCP in approximately 7 to 10 days. Patient will also be given a prescription for a laxative to take as needed. Differential Diagnosis Likely acute exacerbation of chronic obstructive airways disease; Unlikely congestive heart failure, community acquired pneumonia, asthma with exacerbation or pulmonary embolism Medical Records I reviewed the patient's medical records. Lab Data I reviewed the patient's lab results. 09/07/22 12:31 09/07/22 12:31 Labs/Radiology: Radiology Impressions Abdomen X-Ray 09/07/22 12:16 Impression: Large amount of fecal. In the colon. Chest X-Ray 09/07/22 12:16 Impression: Atherosclerosis and hyperinflation. Laboratory Results WBC 12.2 10^3/uL (4.0-10.0) H 09/07/22 12:31 RBC 4.75 10^6/uL (4.1-5.3) 09/07/22 12:31 Hgb 13.6 g/dL (11.7-16.6) 09/07/22 12:31 Hct 43.6 % (42.0-52.0) 09/07/22 12:31 MCV 91.8 fl (80-94) 09/07/22 12:31 MCH 28.6 pg (28.0-34.0) 09/07/22 12:31 MCHC 31.2 g/dL (30.0-36.0) 09/07/22 12:31 RDW 13.0 % (12.1-15.1) 09/07/22 12:31 Plt Count 244 10^3/cmm (130-400) 09/07/22 12:31 MPV 9.6 fL (7.4-10.4) 09/07/22 12:31 Neut % (Auto) 87.7 % 09/07/22 12:31 Lymph % (Auto) 6.6 % 09/07/22 12:31 [place] % (Auto) 3.7 % 09/07/22 12:31 Eos % (Auto) 0.9 % 09/07/22 12:31 Baso % (Auto) 0.8 % 09/07/22 12:31 Neut # (Auto) 10.67 10^3/uL (1.8-7.7) H 09/07/22 12:31 Lymph # (Auto) 0.8 10^3/uL (0.8-4.8) 09/07/22 12:31 [place] # (Auto) 0.5 10^3/uL (0.2-0.9) 09/07/22 12:31 Eos # (Auto) 0.1 10^3/uL (0.0-0.8) 09/07/22 12:31 Baso # (Auto) 0.1 10^3/uL (0.0-0.1) 09/07/22 12:31 Nucleated RBC % (auto) 0 % 09/07/22 12:31 Nucleated RBCs # 0.0 /100WBC 09/07/22 12:31 Sodium 139 mmol/L (136-145) 09/07/22 12:31 Potassium 3.4 mmol/L (3.5-5.1) L 09/07/22 12:31 Chloride 97 mmol/L (98-107) L 09/07/22 12:31 Carbon Dioxide 33 mmol/L (22-29) H 09/07/22 12:31 Anion Gap 12.4 (5-19) 09/07/22 12:31 BUN 8 mg/dL (8-23) 09/07/22 12:31 Creatinine 0.6 mg/dL (0.7-1.2) L 09/07/22 12:31 GFR Calculation 134.8 mL/min (90-130) H 09/07/22 12:31 Glucose 113 mg/dL (65-115) 09/07/22 12:31 Calculated Osmolality 287 mOsm/kg (285-295) 09/07/22 12:31 Calcium 8.6 mg/dL (8.5-10.5) 09/07/22 12:31 Total Bilirubin 0.2 mg/dL (0.15-1.2) 09/07/22 12:31 AST 20 U/L (0-40) 09/07/22 12:31 ALT 16 U/L (0-41) 09/07/22 12:31 Alkaline Phosphatase 93 U/L (40-130) 09/07/22 12:31 Total Protein 6.5 g/dL (6.6-8.7) L 09/07/22 12:31 Albumin 4.0 g/dL (3.5-5.2) 09/07/22 12:31 Globulin 2.5 g/dL (1.3-4.6) 09/07/22 12:31 Urine Color Yellow (Yellow) 09/07/22 12:20 Urine Appearance Clear (CLEAR) 09/07/22 12:20 Urine pH 6 (5-7) 09/07/22 12:20 Ur Specific [place] 1.010 (1.005-1.030) 09/07/22 12:20 Urine Protein Neg (Negative) 09/07/22 12:20 Urine Glucose (UA) Norm (Normal) 09/07/22 12:20 Urine Ketones Negative (Negative) 09/07/22 12:20 Urine Blood Neg (Negative) 09/07/22 12:20 Urine Nitrate Negative (Negative) 09/07/22 12:20 Urine Bilirubin Neg (Negative) 09/07/22 12:20 Urine Urobilinogen Norm mg/dL (Negative) 09/07/22 12:20 Ur Leukocyte Esterase Negative (Negative) 09/07/22 12:20 EKG Data EKG 1: I personally reviewed and interpreted this EKG as follows: EKG Interpretation Date: 09/07/22 EKG interpretation time: 12:36 Prior EKG tracings: not available for review Interpretation: EKG showed normal sinus rhythm with a ventricular rate 86 bpm, SD interval 196, QRS duration 97, QTc 402, no ST-T wave changes Discharge Plan Discharge Patient Disposition: Home Clinical Impression: Acute exacerbation of chronic obstructive airways disease, Acute constipation Condition: Stable Prescriptions: New prednisone 50 mg tablet 50 mg PO DAILY 7 Days Qty: 7 0RF Dulcolax (bisacodyl) 5 mg tablet,delayed release (DR/EC) 5 mg PO BID PRN (Reason: constipation) Qty: 10 0RF No Action albuterol sulfate 2.5 mg /3 mL (0.083 %) solution for nebulization 2.5 mg inhalation Q6H Qty: 300 2RF duloxetine 30 mg capsule,delayed release(DR/EC) 30 mg PO BID Qty: 180 0RF gabapentin 800 mg tablet 800 mg PO DAILY Qty: 90 0RF verapamil 360 mg capsule,ext rel. pellets 24 hr 360 mg PO DAILY Qty: 90 0RF albuterol sulfate 90 mcg/actuation HFA aerosol inhaler 2 puff inhalation Q6H PRN (Reason: shortness of breath or wheezing) Qty: 25.5 1RF tramadol 50 mg tablet 50 mg PO Q8H Qty: 120 2RF Trelegy Ellipta 100-62.5-25 mcg blister with device 1 inh inhalation Q24H Qty: 90 0RF budesonide 0.5 mg/2 mL suspension for nebulization 0.5 mg inhalation DAILY PRN (Reason: Shortness Of Breath Or Wheezing) Aspir-81 81 mg Tablet,Delayed Release (Dr/Ec) 81 mg PO DAILY ibuprofen 200 mg Tablet 600 mg PO BID Dulcolax (bisacodyl) 5 mg Tablet,Delayed Release (Dr/Ec) 5 mg PO DAILY vitamin O32-acypb acid 0.5-1 mg Tablet 1 tab PO DAILY Discharge Orders: Discharge ED (Routine); Ordered 09/07/22 Ordered By: Meir Castillo Referrals: Surendra Rizzo, FULL STACK PYTHON DEVELOPER-C [Primary Care Provider] - Patient Instructions: COPD, Constipation (DC) Activity Restrictions/Additional Instructions: Continue your [id number] stool softeners as directed. Please take all medicine per instructions. Please follow-up with your primary care physician within the next 7 to 10 days as needed. Coding Level of Care Code ED Pillow Cleaner for Jesus Ruiz
[2022-09-07 12:32] LABS: Add Urine Microscopic? NO; Charge for UA Resulting for Rev
[2022-09-07 12:35] LABS: Bilirubin Urine Neg (Negative); Blood Urine Neg (Negative); Glucose Urine UA Norm (Normal); Ketones Urine Negative (Negative); Leukocyte Esterase Urine Negative (Negative); Nitrate Urine Negative (Negative); Protein Urine Neg (Negative); Urine Appearance Clear (CLEAR); Urine Color Yellow (Yellow); Urobilinogen Urine Norm (Negative); pH Urine 6 (5-7)
--- NOTE | 2022-09-07 12:36 | ECG_ITS ---
[facility] Test Date: 2022-09-07 Pat Name: Avni Hidalgo Department: Room: Gender: Male Optometry Teacher: : 1955 Requested By: Meir Castillo Order Number: [id number] Kit MD: Adis Canada M.D. Measurements Intervals [place] Rate: 86 P: 84 CT: 196 QRS: 35 QRSD: 97 T: 83 QT: 359 QTc: 430 Interpretive Statements SINUS RHYTHM Compared to ECG 04/18/2022 22:39:30 Incomplete right bundle-branch block no longer present Electronically Signed On 09-07-2022 13:05:53 CDT by Adis Canada M.D. [email or web address] medical specialty hospital - [id number]
--- NOTE | 2022-09-07 12:50 | PC.NURSE ---
REPORT GIVEN TO ROSHAN MONTEZ ASSUMED CARE.
[2022-09-07 13:01] LABS: Basophils # 0.1 10^3/uL (0.0-0.1); Basophils % 0.8 %; Eosinophils # 0.1 10^3/uL (0.0-0.8); Eosinophils % 0.9 %; Hematocrit 43.6 % (42.0-52.0); Hemoglobin 13.6 g/dL (11.7-16.6); Lymphocytes # 0.8 10^3/uL (0.8-4.8); Lymphocytes % 6.6 %; Mean Corpuscular HGB Conc 31.2 g/dL (30.0-36.0); Mean Corpuscular Hemoglobin 28.6 pg (28.0-34.0); Mean Corpuscular Volume 91.8 fl (80-94); Mean Platelet Volume 9.6 fL (7.4-10.4); Monocytes # 0.5 10^3/uL (0.2-0.9); Monocytes % 3.7 %; Neutrophils # 10.67 10^3/uL (1.8-7.7); Neutrophils % 87.7 %; Nucleated Red Blood Cells % 0 %; Platelet Count 244 10^3/cmm (130-400); Red Blood Count 4.75 10^6/uL (4.1-5.3); White Blood Count 12.2 10^3/uL (4.0-10.0)
[2022-09-07 13:13] VITALS: BP 138/52; PULSE 88; O2SAT 99
[2022-09-07 13:25] LABS: Alanine Aminotransferase 16 U/L (0-41); Alkaline Phosphatase 93 U/L (40-130); Anion Gap 12.4 (5-19); Aspartate Amino Transferase 20 U/L (0-40); Blood Urea Nitrogen 8 mg/dL (8-23); Calcium 8.6 mg/dL (8.5-10.5); Carbon Dioxide 33 mmol/L (22-29); Chloride 97 mmol/L (98-107); Globulin 2.5 g/dL (1.3-4.6); Glomerular Filtration Rate 134.8 mL/min (90-130); Glucose 113 mg/dL (65-115); Osmolality Calculated 287 mOsm/kg (285-295); Potassium 3.4 mmol/L (3.5-5.1); Sodium 139 mmol/L (136-145); Total Bilirubin 0.2 mg/dL (0.15-1.2); Total Protein 6.5 g/dL (6.6-8.7)
[2022-09-07 13:30] VITALS: BP 147/55; PULSE 87; O2SAT 99
[2022-09-07 14:00] VITALS: BP 157/74; PULSE 87; O2SAT 98
[2022-09-07] MEDS: dexamethasone 10 mg/mL INJ IVP (15:13)
[2022-09-07 16:10] VITALS: PULSE 90; O2SAT 96
[2022-09-07 16:11] VITALS: BP 123/70; PULSE 84; O2SAT 96
== END 2022-09-07 16:13 | disposition home or self-care (01) ==
PROVIDERS: Emergency Provider Emergency Medicine; PCP Nurse Practitioner
DX: J44.1 Chronic obstructive pulmonary disease with (acute) exacerbation (principal); K59.00 Constipation, unspecified; Z79.82 Long term (current) use of aspirin; F17.210 Nicotine dependence, cigarettes, uncomplicated; I10 Essential (primary) hypertension; E78.2 Mixed hyperlipidemia
CPT/HCPCS: 71045; 74018; 80053; 81003; 85025; 93005; 96374; 99285; J1100

== ENCOUNTER → 2022-09-25 14:45 | Outpatient (BNVA) | payer MEDICARE, SELFPAY | PROVIDERS: PCP Nurse Practitioner; Visit Provider Nurse Practitioner | DX: K59.00 Constipation, unspecified (principal) | CPT/HCPCS: 74018 ==

== ENCOUNTER 2022-11-09 11:15 | Inpatient (IN) | payer MEDICARE, SELFPAY ==
[2022-11-09] VITALS (27 sets, daily range): BP systolic 111–172; BP diastolic 69–85; PULSE 94–115; RESP 13–38; TEMP 36.7–37.8; O2SAT 89–100; BMI 33.5
--- NOTE | 2022-11-09 11:22 | XR_ITS ---
WS: [id number] XR chest 1V portable [id number] REASON FOR EXAM: ams FINDINGS: The chest appears unchanged compared to 09/07/2022. Mild tortuosity of the thoracic aorta. No cardiomegaly. Calcified granulomas disease in both hemithoraces. Significant hyperexpansion of the lungs. No acute pulmonary parenchymal or pleural abnormality. Moderate degenerative spondylosis in the thoracic spine. IMPRESSION: Stable abnormal chest with no acute abnormality.
--- NOTE | 2022-11-09 11:22 | CT_ITS ---
WS: [id number] CT HEAD TECHNIQUE: Noncontrast CT of the head obtained from the skullbase to the vertex. CLINICAL INFORMATION: ams COMPARISON: None. DLP: 1045.[address] scans at [facility] use at least one of these dose optimization techniques: automated e xposure control; mA and/or kV adjustment per patient size (includes targeted exams where dose is matc hed to clinical indication); or iterative reconstruction. FINDINGS: No evidence of intracranial hemorrhage or mass effect. Ventricular system and basal cisterns are gomez nt. Mild small vessel changes with mild parenchymal volume loss. Intracranial vascular calcification. No extra-axial fluid collections. No evidence of mass or mass effect. Paranasal sinuses and mastoid air cells are well aerated. .Normal visualized soft tissues. IMPRESSION: 1. No evidence of intracranial hemorrhage or mass effect. 2. No acute intracranial findings.
--- NOTE | 2022-11-09 11:22 | W.ED.AMS ---
HPI - Altered Mental Status General: Chief Complaint: Altered Mental Status Stated Complaint: AMS Time Seen by Provider: 11/09/22 11:22 Limitations: altered mental status History of Present Illness: Mr. Hidalgo is a 67-year-old gentleman with, per chart review, hypertension hyperlipidemia COPD with chronic hypoxic respiratory failure presenting the emergency department for altered mental status. Somewhat unclear baseline however apparently family noticed that patient has been significantly more paranoid. For EMS he was quite paranoid. He has also made statements about leaving that he is . History is limited by mental status. Associated symptoms: Reports delusions Review of Systems General: Reports: 10 or more systems reviewed and unremarkable except in HPI and below PFSH ED PFSH: Medical History Acute encephalopathy Acute exacerbation of chronic obstructive airways disease Acute respiratory failure with hypoxia and hypercapnia Cigarette smoker COPD (chronic obstructive pulmonary disease) Essential hypertension Exertional dyspnea Hyperlipidemia, mixed Lumbar neuralgia Surgical History History of cystostomy History of hemorrhoidectomy History of lumbar surgery Family History Other Cancer Diabetes Hyperlipidemia Hypertension Social History Smoking and tobacco status: current every day smoker cigarettes Packs smoked per day: 1 Years cigarettes smoked: 50 [ Other cigarette details: currently 1ppd ] Second hand smoke exposure: No Smoking risk assessment/counseling performed?: Yes Alcohol intake: current Alcohol intake frequency: holidays/special occasions only Desire information about alcohol rehabilitation?: No Counseling given: No Substance/Drug Use: unknown Desire information about substance/drug rehabilitation?: No Counseling given: No Adopted: No Caregiver/support person: Yes Lives independently: Yes Household members: none Housing: House Marital status: Number of children: 4 Number of grandchildren: 4 Highest education level completed: GED or Equivalent Current occupational status: retired Current occupational exposures/hazards: No Pets and animals: Yes Do you think of yourself as: Straight/Heterosexual Current gender identity: Male Physical Exam Const: COMMON NORMALS: alert GENERAL APPEARANCE: cooperative and well developed HENMT: COMMON NORMALS: normocephalic and atraumatic HEAD & SCALP: normocephalic and atraumatic Eye: COMMON NORMALS: conjunctivae normal CONJUNCTIVA: Yes conjunctivae normal SCLERA: sclerae normal Neck/C-Spine: COMMON NORMALS: supple GENERAL: Yes trachea midline Resp: EFFORT & INSPECTION: Yes able to speak in complete sentences AUSCULTATION: rhonchi and diminished lung sounds Cardio: COMMON NORMALS: regular rate and regular rhythm RATE: regular rate RHYTHM: regular rhythm GI: COMMON NORMALS: Soft to palpation PALPATION: Yes Soft to palpation and No Tenderness to palpation present (GI) Extremity: GENERAL: Yes normal exam except as noted and No edema Neuro: COMMON NORMALS: moves all extremities SENSORIUM/ORIENTATION: Yes alert and Yes Orientation impaired Psych: THOUGHT CONTENT: Yes delusions Procedures Lumbar Puncture Time Out Performed: Yes Patient Position: left lateral decubitus Skin Prep: Povidone-Iodine 1% and 0.5% Chlorhexidine/Alcohol Local Anesthetic: lidocaine 1% and with epi Amount of anesthesia used (mL): 10 Spinal Needle Gauge: 20G Interspace Used: L4-L5 Complications: unable to obtain CSF and bleeding Course Vital Signs: Vital signs: Vital Signs Temperature 98.9 F 11/11/22 11:47 Pulse Rate 111 H 11/11/22 11:47 Respiratory Rate 20 H 11/11/22 11:47 Blood Pressure 122/76 11/11/22 14:20 Pulse Oximetry 100 11/11/22 14:20 Oxygen Delivery Me thod Nasal Cannula 11/11/22 11:47 Oxygen Flow Rate 4 11/11/22 07:34 Fraction of Inspir ed Oxygen 28 11/10/22 20:31 MDM - Altered Mental Status Medical Decision Making 67-year-old gentleman presenting with paranoia and confusion. Patient appears quite confused on clinical exam. He makes nonsensical statements including repeatedly stating that he is . He is ill but nontoxic. EKG demonstrates sinus tachycardia, no STEMI. Labs with leukocytosis, normocytic anemia with no bleeding on exam. Elevated bicarb, hypokalemia. Negative range 2-hour delta troponin. Possible UTI though likely not significant enough to fluids when symptoms. Head CT negative for hemorrhage or mass. Chest x-ray with no lobar consolidation or pneumothorax. ED course treated with IV fluids, magnesium, broad-spectrum antibiotics, treatment for COPD exacerbation. Attempted lumbar puncture however I was unable to obtain CSF. There was localized venous bleeding however this quickly resolved with direct pressure and hemostasis was achieved/obtained. Likely positioning worsened his respiratory status and subsequently BiPAP ordered in addition to additional RT treatment for wheezing. The results of ED evaluation were discussed with the patient including plan for admission due to requirement for level of care not available if discharged to prevent significant worsening/deterioration. Patient agreeable with plan. Discussed with hospitalist service who was agreeable to admit patient. Medical Records I reviewed the patient's medical records. Lab Data I reviewed the patient's lab results. 11/10/22 03:55 11/10/22 03:55 Radiology Impressions Ankle X-Ray 11/10/22 14:44 IMPRESSION: No acute findings. Laboratory Results WBC 17.1 10^3/uL (4.0-10.0) H 11/09/22 11:40 RBC 3.81 10^6/uL (4.1-5.3) L 11/09/22 11:40 Hgb 10.9 g/dL (11.7-16.6) L 11/09/22 11:40 Hct 35.5 % (42.0-52.0) L 11/09/22 11:40 MCV 93.2 fl (80-94) 11/09/22 11:40 MCH 28.6 pg (28.0-34.0) 11/09/22 11:40 MCHC 30.7 g/dL (30.0-36.0) 11/09/22 11:40 RDW 13.2 % (12.1-15.1) 11/09/22 11:40 Plt Count 247 10^3/cmm (130-400) 11/09/22 11:40 MPV 9.8 fL (7.4-10.4) 11/09/22 11:40 Neut % (Auto) 87.4 % 11/09/22 11:40 Lymph % (Auto) 4.7 % 11/09/22 11:40 Stewart % (Auto) 6.7 % 11/09/22 11:40 Eos % (Auto) 0.3 % 11/09/22 11:40 Baso % (Auto) 0.4 % 11/09/22 11:40 Neut # (Auto) 14.91 10^3/uL (1.8-7.7) H 11/09/22 11:40 Lymph # (Auto) 0.8 10^3/uL (0.8-4.8) 11/09/22 11:40 Stewart # (Auto) 1.2 10^3/uL (0.2-0.9) H 11/09/22 11:40 Eos # (Auto) 0.1 10^3/uL (0.0-0.8) 11/09/22 11:40 Baso # (Auto) 0.1 10^3/uL (0.0-0.1) 11/09/22 11:40 Nucleated RBC % (auto) 0 % 11/09/22 11:40 Nucleated RBCs # 0.0 /100WBC 11/09/22 11:40 PT 12.70 SECONDS (12.1-14.9) 11/09/22 11:40 INR 0.92 (0.8-1.2) 11/09/22 11:40 Specimen Type Arterial 11/09/22 11:37 Sample Site Brachial, left 11/09/22 11:37 ABG pH 7.44 (7.35-7.45) 11/09/22 11:37 ABG pCO2 72.0 mmHg (35-45) H* 11/09/22 11:37 ABG pO2 102.0 mmHg (80.0-100.0) H 11/09/22 11:37 ABG HCO3 48.6 mmol/L (22-26) H 11/09/22 11:37 ABG Base Excess 20.8 mmol/L (-2.0-2.0) H 11/09/22 11:37 Osvaldo Test Pos 11/09/22 11:37 Hematocrit 34.2 % (42-52) L 11/09/22 11:37 O2 Delivery Device Nc 11/09/22 11:37 O2 Liters/Min 4.0 % 11/09/22 11:37 FiO2 36.0 % 11/09/22 11:37 Business Taxes Specialist ID Cak 11/09/22 11:37 Sodium 141 mmol/L (136-145) 11/09/22 11:40 Potassium 3.3 mmol/L (3.5-5.1) L 11/09/22 11:40 Chloride 89 mmol/L (98-107) L 11/09/22 11:40 Carbon Dioxide 44 mmol/L (22-29) H* 11/09/22 11:40 Anion Gap 11.3 (5-19) 11/09/22 11:40 BUN 8 mg/dL (8-23) 11/09/22 11:40 Creatinine 0.5 mg/dL (0.7-1.2) L 11/09/22 11:40 GFR Calculation 166.4 mL/min (90-130) H 11/09/22 11:40 Glucose 109 mg/dL (65-115) 11/09/22 11:40 POC Glucose 132 mg/dL (70-110) H 11/09/22 11:31 Calculated Osmolality 291 mOsm/kg (285-295) 11/09/22 11:40 Lactic Acid 0.8 mmol/L (0.5-2.2) 11/09/22 11:40 Calcium 9.0 mg/dL (8.5-10.5) 11/09/22 11:40 Magnesium 1.6 mg/dL (1.7-2.3) L 11/09/22 11:40 Total Bilirubin 0.5 mg/dL (0.15-1.2) 11/09/22 11:40 AST 17 U/L (0-40) 11/09/22 11:40 ALT 15 U/L (0-41) 11/09/22 11:40 Alkaline Phosphatase 88 U/L (40-130) 11/09/22 11:40 Ammonia 26 umol/L (16-60) 11/09/22 11:40 Troponin T Baseline 30 ng/L (0-15) H 11/09/22 11:40 Troponin T 120 Minute 26.25 ng/L (0-15) H 11/09/22 13:30 Delta Troponin T -3.75 ABS# (0-10) L 11/09/22 13:30 Total Protein 5.6 g/dL (6.6-8.7) L 11/09/22 11:40 Albumin 3.4 g/dL (3.5-5.2) L 11/09/22 11:40 Globulin 2.2 g/dL (1.3-4.6) 11/09/22 11:40 TSH 0.45 uIU/mL (0.27-4.20) 11/09/22 11:40 Urine Color Dark yellow (Yellow) 11/09/22 11:32 Urine Appearance Clear (CLEAR) 11/09/22 11:32 Urine pH 7 (5-7) 11/09/22 11:32 Ur Specific Ava 1.005 (1.005-1.030) 11/09/22 11:32 Urine Protein Neg (Negative) 11/09/22 11:32 Urine Glucose (UA) Norm (Normal) 11/09/22 11:32 Urine Ketones Negative (Negative) 11/09/22 11:32 Urine Blood Neg (Negative) 11/09/22 11:32 Urine Nitrate Negative (Negative) 11/09/22 11:32 Urine Bilirubin Neg (Negative) 11/09/22 11:32 Urine Urobilinogen 1 mg/dL (Negative) H 11/09/22 11:32 Ur Leukocyte Esterase Trace (Negative) H 11/09/22 11:32 Urine RBC 0-4 /hpf (0-2) H 11/09/22 11:32 Urine WBC 5-10 /hpf (0-5) H 11/09/22 11:32 Ur Squamous Epith Cells 0-4 /hpf (0-5) H 11/09/22 11:32 Amorphous Sediment Not Reportable 11/09/22 11:32 Urine Bacteria None /hpf (NONE) 11/09/22 11:32 Nasal Influ A H1 2008 PCR Not detected (NOT DETECT) 11/09/22 11:47 Salicylates < 0.3 mg/dL (3-10) L 11/09/22 11:40 Urine Opiates Screen Negative ng/mL (Negative) 11/09/22 11:32 Acetaminophen < 5.0 ug/mL (10-30) L 11/09/22 11:40 Ur Barbiturates Screen Negative ng/mL (Negative) 11/09/22 11:32 Ur Phencyclidine Scrn Negative ng/mL (Negative) 11/09/22 11:32 Ur Amphetamines Screen Negative ng/mL (Negative) 11/09/22 11:32 U Benzodiazepines Scrn Negative ng/mL (Negative) 11/09/22 11:32 Urine Cocaine Screen Negative ng/mL (Negative) 11/09/22 11:32 U Marijuana (THC) Screen Positive ng/mL (Negative) H 11/09/22 11:32 Ethyl Alcohol < 10 mg/dL (0-10) 11/09/22 11:40 Adenovirus (PCR) Not detected (NOT DETECT) 11/09/22 11:47 C. pneumoniae DNA (PCR) Not detected (NOT DETECT) 11/09/22 11:47 Coronavirus 229E (PCR) Not detected (NOT DETECT) 11/09/22 11:47 Human Metapneumovir PCR Not detected (NOT DETECT) 11/09/22 11:47 Influenza A (H1) PCR Not detected (NOT DETECT) 11/09/22 11:47 Influenza A (H3) PCR Not detected (NOT DETECT) 11/09/22 11:47 Influenza Type A (PCR) Not detected (NOT DETECT) 11/09/22 11:47 Influenza Type B (PCR) Not detected (NOT DETECT) 11/09/22 11:47 M. pneumoniae (PCR) Not detected (NOT DETECT) 11/09/22 11:47 Parainfluenza 1 (PCR) Not detected (NOT DETECT) 11/09/22 11:47 Parainfluenza 2 (PCR) Not detected (NOT DETECT) 11/09/22 11:47 Parainfluenza 3 (PCR) Not detected (NOT DETECT) 11/09/22 11:47 Parainfluenza 4 (PCR) Not detected (NOT DETECT) 11/09/22 11:47 RSV Type A (PCR) Not detected (NOT DETECT) 11/09/22 11:47 RSV Type B (PCR) Not detected (NOT DETECT) 11/09/22 11:47 Entero/Rhino (PCR) Not detected (NOT DETECT) 11/09/22 11:47 SARS-CoV-2 (PCR) Not detected (NOT DETECT) 11/09/22 11:47 Critical Care Time Critical Care Time: Critical Care Time: Yes Total Critical Care Time: 40 Attestation: Due to a high probability of clinically significant, possibly life threatening deterioration, the patient required my highest level of attention and preparedness to intervene emergently and I personally spent this critical care time directly and personally managing the patient. This critical care time included obtaining a history; examining the patient; pulse oximetry; ordering and review of laboratory and imaging studies; arranging urgent treatment with development of a management plan; evaluation of patient's response to treatment; frequent reassessment; and, discussions with other providers as applicable. It was exclusive of separately billable procedures. Primary system involved is neuro and possible infectious disease. Discharge Plan Discharge Patient Disposition: Admitted As Inpatient Admit Provider: Muna Cortes Clinical Impression: Acute alteration in mental status, Chronic respiratory failure with hypoxia and hypercapnia, Pneumonia Condition: Stable Discharge Diet: Usual diet Discharge Activity: Resume usual activity Coding Level of Care Code ED Licensed Practical Vocational Nurse for Jesus Ruiz
--- NOTE | 2022-11-09 11:34 | ECG_ITS ---
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 Measurements Intervals [place] Rate: 112 P: 93 [place]: 167 QRS: 23 QRSD: 85 T: 81 QT: 312 QTc: 428 Interpretive Statements SINUS TACHYCARDIA ANTEROSEPTAL MYOCARDIAL INFARCTION , OF INDETERMINATE AGE [40+ ms Q WAVE IN V1-V4] Compared to ECG 09/07/2022 12:36:27 Ventricular premature complex(es) now present Myocardial infarct finding now present Sinus rhythm no longer present Electronically Signed On 11-09-2022 12:01:37 CDT by Gala Acosta M.D. [email or web address] [email or web address] baptist medical centerScranton Gil[facility] Communicationske[facility].[employer]/store/[id number]
[2022-11-09 11:44] LABS: Glucose Point of Care 132 mg/dL (70-110)
[2022-11-09 11:48] LABS: ABG PH Result 7.44 (7.35-7.45); Arterial Blood Gas Hematocrit 34.2 % (42-52); Base Excess ABG 20.8 mmol/L (-2.0-2.0); Blood Gas Allen Test Pos; Blood Gas Operator Identificat CAK; Blood Gas Sample Site Brachial, left; Blood Gas Sample Type Arterial; HCO3 ABG 48.6 mmol/L (22-26); Oxygen Device NC
[2022-11-09 11:55] LABS: Basophils # 0.1 10^3/uL (0.0-0.1); Basophils % 0.4 %; Eosinophils # 0.1 10^3/uL (0.0-0.8); Eosinophils % 0.3 %; Hematocrit 35.5 % (42.0-52.0); Hemoglobin 10.9 g/dL (11.7-16.6); Lymphocytes # 0.8 10^3/uL (0.8-4.8); Lymphocytes % 4.7 %; Mean Corpuscular HGB Conc 30.7 g/dL (30.0-36.0); Mean Corpuscular Hemoglobin 28.6 pg (28.0-34.0); Mean Corpuscular Volume 93.2 fl (80-94); Mean Platelet Volume 9.8 fL (7.4-10.4); Monocytes # 1.2 10^3/uL (0.2-0.9); Monocytes % 6.7 %; Neutrophils # 14.91 10^3/uL (1.8-7.7); Neutrophils % 87.4 %; Nucleated Red Blood Cells % 0 %; Platelet Count 247 10^3/cmm (130-400); Red Blood Count 3.81 10^6/uL (4.1-5.3); Red Cell Distribution Width 13.2 % (12.1-15.1); White Blood Count 17.1 10^3/uL (4.0-10.0)
[2022-11-09] MEDS: sodium chloride 0.9% 1,000 ML 999 ML IV (12:05)
[2022-11-09] MEDS: cefepime 2,000 MG in sodium chloride 0.9% (plus) 50 ML 100 MG IV (12:05)
--- NOTE | 2022-11-09 12:05 | PC.PHAR ---
CONFIRMED MOST MEDS WITH PATIENT. HE WAS CONFUSED ABOUT A COUPLE OF THEM SO WE VERIFIED ALL MEDS WITH PHARMACY.
[2022-11-09 12:08] LABS: Add Urine Culture? No; Add Urine Microscopic? YES; Bilirubin Urine Neg (Negative); Blood Urine Neg (Negative); Glucose Urine UA Norm (Normal); Ketones Urine Negative (Negative); Leukocyte Esterase Urine Trace (Negative); Nitrate Urine Negative (Negative); Protein Urine Neg (Negative); RBC Urine 0-4 /hpf (0-2); Specific Gravity, Urine 1.005 (1.005-1.030); Squamous Epithelial Cell Urine 0-4 /hpf (0-5); Urine Appearance Clear (CLEAR); Urine Color Dark Yellow (Yellow); Urobilinogen Urine 1 mg/dL (Negative); pH Urine 7 (5-7)
[2022-11-09 12:16] LABS: Ammonia 26 umol/L (16-60)
[2022-11-09 12:22] LABS: Troponin(5th) Baseline 30 ng/L (0-15)
[2022-11-09] MEDS: vancomycin 2,000 MG/400 ML PIGGYBACK 200 MG IV (12:25)
[2022-11-09 12:29] LABS: Alanine Aminotransferase 15 U/L (0-41); Albumin Level 3.4 g/dL (3.5-5.2); Alkaline Phosphatase 88 U/L (40-130); Anion Gap 11.3 (5-19); Aspartate Amino Transferase 17 U/L (0-40); Blood Urea Nitrogen 8 mg/dL (8-23); Chloride 89 mmol/L (98-107); Globulin 2.2 g/dL (1.3-4.6); Glomerular Filtration Rate 166.4 mL/min (90-130); Glucose 109 mg/dL (65-115); Magnesium 1.6 mg/dL (1.7-2.3); Osmolality Calculated 291 mOsm/kg (285-295); Potassium 3.3 mmol/L (3.5-5.1); Sodium 141 mmol/L (136-145); Thyroid Stimulating Hormone 0.45 uIU/mL (0.27-4.20); Total Bilirubin 0.5 mg/dL (0.15-1.2); Total Protein 5.6 g/dL (6.6-8.7)
[2022-11-09 12:32] LABS: Acetaminophen < 5.0 ug/mL (10-30); Alcohol Level < 10 mg/dL (0-10); Carbon Dioxide 44 mmol/L (22-29); Salicylate < 0.3 mg/dL (3-10)
[2022-11-09 12:40] LABS: Amphetamines Screen Urine Negative (Negative); Barbiturates Screen Urine Negative (Negative); Benzodiazepines Screen Urine Negative (Negative); Cocaine Screen Urine Negative (Negative); Opiate Screen Urine Negative (Negative); PCP Screen Urine Negative (Negative); THC Screen Urine Positive (Negative)
[2022-11-09 12:53] LABS: INR 0.92 (0.8-1.2)
[2022-11-09 12:58] LABS: Lactic Sepsis W/Reflex 0.8 mmol/L (0.5-2.2)
[2022-11-09] MEDS: magnesium sulfate premix 2 GM/50 ML PIGGYBACK IV (13:14)
--- NOTE | 2022-11-09 13:23 | ECG_ITS ---
[facility] Test Date: 2022-11-09 Pat Name: Avni Hidalgo Department: Room: Gender: Male [employer] Business Analyst: : 1955 Requested By: Jacob Woo Order Number: [id number] Kit MD: Gala Acosta M.D. Measurements Intervals [place] Rate: 109 P: 81 [place]: 156 QRS: 40 QRSD: 86 T: 76 QT: 325 QTc: 439 Interpretive Statements SINUS TACHYCARDIA ABNORMAL RHYTHM ECG Compared to ECG 09/07/2022 12:36:27 Sinus rhythm no longer present Electronically Signed On 11-09-2022 12:03:32 CDT by Gala Acosta M.D. [email or web address] Therapeuticseman[facility] hospitaledulio/store/[id number]
[2022-11-09 13:36] LABS: Adenovirus Not Detected (NOT DETECT); Chlamydia Pneumoniae Not Detected (NOT DETECT); Coronavirus 229E,HKU1,NL63,OC4 Not Detected (NOT DETECT); Human Metapneumovirus Not Detected (NOT DETECT); Human Rhinovirus/Enterovirus Not Detected (NOT DETECT); Influenza A Not Detected (NOT DETECT); Influenza A H1 Not Detected (NOT DETECT); Influenza A H1-2009 Not Detected (NOT DETECT); Influenza A H3 Not Detected (NOT DETECT); Influenza B Not Detected (NOT DETECT); Mycoplasma Pneumoniae Not Detected (NOT DETECT); Parainfluenza Virus Type 1 Not Detected (NOT DETECT); Parainfluenza Virus Type 2 Not Detected (NOT DETECT); Parainfluenza Virus Type 3 Not Detected (NOT DETECT); Parainfluenza Virus Type 4 Not Detected (NOT DETECT); Respiratory Syncytial Virus A Not Detected (NOT DETECT); Respiratory Syncytial Virus B Not Detected (NOT DETECT); SARS-COV-2 Not Detected (NOT DETECT)
[2022-11-09] MEDS: LORazepam 2 mg/mL INJ 1 mL 1 MG IVP (13:58)
[2022-11-09 14:07] LABS: Troponin 5 2HR 26.25 ng/L (0-15); Troponin 5 2HR Delta -3.75 ABS# (0-10)
[2022-11-09] MEDS: methylPREDNISolone sod succ 125 MG in water for injection-sterile 2 ML 24 MG IVP (14:27)
[2022-11-09] MEDS: ipratropium-albuterol 3 mL Neb INHALATION ×2 (14:43→17:14)
--- NOTE | 2022-11-09 16:49 | P.HP_ITS ---
Providers/Chief Complaint Admitting Physician: Muna Cortes MD Primary Care Provider: Surendra Rizzo, [employer]YM[employer]SI[employer] TEACHER-C Chief Complaint: AMS History of Present Illness Avni Hidalgo is a 67 year old male with a past medical history of severe COPD for which she is on chronic supplemental O2 of 6 to 7 L/min with which he is reportedly noncompliant. He was on home hospice in April 2022 for advanced COPD, however it appears he had a disagreement with his family and moved out in May 2022 and took himself off of hospice. Since then he has been living by himself. He does not currently have services at home. He is able to drive himself to his doctors appointments but is short of breath afterwards. History is obtained by talking to his son as patient is currently not able to p articipate in any conversation. Patient was brought to the emergency room today with altered mental status. Apparently he called his primary care physician's office this morning and the front office secretary staff noted him to be slurring his words and not making sense. Therefore they sent ambulance to his house. Once there EMS found him to be agitated and in an altered mental status. He was able to answer some basic questions with regards to his name and whereabouts. After arrival to the emergency room room he received Ativan 1 mg so he could tolerate BiPAP. At the time of my assessment in the ICU, patient is only waking up to painful stimulus, does not answer any questions and just stares when spoken to. He has a Tmax of 100 Fahrenheit, mild leukocytosis. It is unknown if he had been experiencing any increased cough chest pain dyspnea palpitations recently. He did not report any abdominal pain vomiting nausea etc. to his family. Him and his family to communicate over the phone quite frequently. Review of Systems General: Reports: 10 or more systems reviewed and unremarkable except in HPI and below Const: Denies: fever(s), chills or body aches Eyes: Denies: change in vision, blurry vision or photophobia ENMT: Reports: hoarseness; Denies: throat pain, enlarged tonsils, odynophagia or nasal congestion Card: Denies: chest pain, palpitations, irregular heart rhythm, edema, swelling of feet/ankles, lightheadedness, pre-syncope, dyspnea on exertion or orthopnea Resp: Denies: dyspnea, productive cough, non-productive cough, wheezing, stridor, pain on inspiration, change in phlegm color, hemoptysis or chest congestion GI: Denies: abdominal pain, nausea, vomiting, hematemesis, coffee ground emesis, dysphagia, heartburn, diarrhea, constipation, GI cramping, change in stool character, hematochezia or melena : Denies: flank pain, dysuria, urinary frequency, urinary urgency, urinary hesitancy or hematuria Musc: Denies: neck pain, back pain, extremity pain, joint swelling, joint warmth or deformity Neuro: Denies: headache(s), numbness in extremities, weakness in extremities, sensory changes, difficulty walking, frequent falls, dizziness, vertigo, behavioral changes, Slurred speech present or seizure-like activity Psych: Denies: anxiety, depression, suicidal ideation or homicidal ideation Endo: Denies: polyuria, polydipsia, tired all the time, cold intolerance or hot flashes Shane/Lymph: Denies: easy bruising or easy bleeding Medications/Allergies Home Medications Medication Instructions Recorded Confirmed Last Taken Type albuterol sulfate 2.5 mg/3 mL 2.5 mg (3 mL) inhalation Q6H #300 07/12/22 11/09/22 Unknown Rx (0.083 %) solution for nebulization mL albuterol sulfate 90 mcg/actuation 2 puff inhalation Q6H PRN 07/12/22 11/09/22 Unknown Rx aerosol inhaler shortness of breath or wheezing #25.5 grams budesonide 0.5 mg/2 mL suspension 0.5 mg inhalation DAILY PRN 09/07/22 11/09/22 Unknown History for nebulization Shortness Of Breath Or Wheezing ibuprofen 200 mg tablet 600 mg PO BID 09/07/22 11/09/22 09/07/22 History vitamin B12 0.5 mg-folic acid 1 mg 1 tab PO DAILY 09/07/22 11/09/22 09/07/22 History tablet glycerin (adult) (Fleet Glycerin 1 supp [place] DAILY PRN constipation 09/25/22 11/09/22 Unknown Rx (Adult) rectal suppository) #12 ea magnesium hydroxide 400 mg/5 mL 15 ml PO BID PRN constipation #355 09/25/22 11/09/22 Unknown Rx oral suspension (Milk of Magnesia) mL bisacodyl 5 mg tablet,delayed 5 mg PO DAILY #30 tabs 10/01/22 11/09/22 Unknown Rx release (Dulcolax (bisacodyl)) duloxetine 30 mg capsule,delayed 30 mg PO BID #180 caps 10/04/22 11/09/22 Unknown Rx release fluticasone fur. 100 mcg-umeclid 1 inh inhalation Q24H #90 ea 10/04/22 11/09/22 Unknown Rx 62.5 mcg-vilant 25 mcg inhalat.powder (Trelegy Ellipta) gabapentin 800 mg tablet 800 mg PO DAILY #90 tabs 10/04/22 11/09/22 Unknown Rx prednisone 20 mg tablet 20 mg PO DAILY #90 tabs 10/04/22 11/09/22 Unknown Rx tramadol 50 mg tablet 50 mg PO Q8H #120 tabs 10/04/22 11/09/22 Unknown Rx verapamil 360 mg 24 hr 360 mg PO DAILY #90 caps 10/04/22 11/09/22 Unknown Rx capsule,extended release lidocaine 5 % topical patch 2 patch topical DAILY #60 ea 10/05/22 11/09/22 Unknown Rx Allergies Allergy/AdvReac Type Severity Reaction Status Date / Time Penicillins Allergy Severe swelling Verified 11/09/22 11:24 PFSH Acute PFSH: Medical History Acute encephalopathy Acute exacerbation of chronic obstructive airways disease Acute respiratory failure with hypoxia and hypercapnia Cigarette smoker COPD (chronic obstructive pulmonary disease) Essential hypertension Exertional dyspnea Hyperlipidemia, mixed Lumbar neuralgia Surgical History History of cystostomy History of hemorrhoidectomy History of lumbar surgery Family History Other Cancer Diabetes Hyperlipidemia Hypertension Social History Smoking and tobacco status: current every day smoker cigarettes Packs smoked per day: 1 Years cigarettes smoked: 50 [ Other cigarette details: currently 1ppd ] Second hand smoke exposure: No Smoking risk assessment/counseling performed?: Yes Alcohol intake: current Alcohol intake frequency: holidays/special occasions only Desire information about alcohol rehabilitation?: No Counseling given: No Substance/Drug Use: unknown Desire information about substance/drug rehabilitation?: No Counseling given: No Adopted: No Caregiver/support person: Yes Lives independently: Yes Household members: none Housing: House Marital status: Number of children: 4 Number of grandchildren: 4 Highest education level completed: GED or Equivalent Current occupational status: retired Current occupational exposures/hazards: No Pets and animals: Yes Do you think of yourself as: Straight/Heterosexual Current gender identity: Male Vitals/I&O/Wt Last Vital Signs Temp 100.0 F H 11/09/22 11:16 Pulse 105 H 11/09/22 14:47 Resp 26 H 11/09/22 14:43 BP 162/85 11/09/22 14:21 Pulse Ox 100 11/09/22 14:46 O2 Del Method Nasal Cannula 11/09/22 14:21 O2 Flow Rate 4 11/09/22 14:21 FiO2 30 11/09/22 14:46 11/09/22 11/09/22 11/09/22 06:59 14:59 22:59 Intake Total 1050 / 1050 Balance 1050 / 1050 Weight last 48 hrs Weight 108.862 kg Physical Exam Narrative: General: Elderly male lying in bed, wakes up to painful stimulus HEENT: PERRLA, pupils bilaterally equal and reactive, pallors not present Chest: Normal vesicular breath sounds, no added sounds, equal good air entry bilaterally CVS: S1-S2 regular, no murmurs, no tachycardia, no gallops, no rubs Abdomen: Soft, nontender, no organomegaly, bowel sounds present Neuro: Only wakes up to painful stimulus, does not follow any commands, does not answer any questions as not moving any extremities currently, however per ER he was agitated and moving all extremities when picked up by EMS. Data 11/09/22 11:40 11/09/22 11:40 Micro: Microbiology 11/09/22 11:40 Blood Culture - Preliminary Blood SPECIMEN COLLECTED 11/09/22 11:40 Blood Culture - Preliminary Blood SPECIMEN COLLECTED ABG Interpretation 1: 11/09/22 11:37 ABG pH 7.44 ABG pCO2 72.0 H* ABG pO2 102.0 H ABG HCO3 48.6 H ABG Base Excess 20.8 H Other data: Laboratory Results WBC 17.1 10^3/uL (4.0-10.0) H 11/09/22 11:40 RBC 3.81 10^6/uL (4.1-5.3) L 11/09/22 11:40 Hgb 10.9 g/dL (11.7-16.6) L 11/09/22 11:40 Hct 35.5 % (42.0-52.0) L 11/09/22 11:40 MCV 93.2 fl (80-94) 11/09/22 11:40 MCH 28.6 pg (28.0-34.0) 11/09/22 11:40 MCHC 30.7 g/dL (30.0-36.0) 11/09/22 11:40 RDW 13.2 % (12.1-15.1) 11/09/22 11:40 Plt Count 247 10^3/cmm (130-400) 11/09/22 11:40 MPV 9.8 fL (7.4-10.4) 11/09/22 11:40 Neut % (Auto) 87.4 % 11/09/22 11:40 Lymph % (Auto) 4.7 % 11/09/22 11:40 [place] % (Auto) 6.7 % 11/09/22 11:40 Eos % (Auto) 0.3 % 11/09/22 11:40 Baso % (Auto) 0.4 % 11/09/22 11:40 Neut # (Auto) 14.91 10^3/uL (1.8-7.7) H 11/09/22 11:40 Lymph # (Auto) 0.8 10^3/uL (0.8-4.8) 11/09/22 11:40 [place] # (Auto) 1.2 10^3/uL (0.2-0.9) H 11/09/22 11:40 Eos # (Auto) 0.1 10^3/uL (0.0-0.8) 11/09/22 11:40 Baso # (Auto) 0.1 10^3/uL (0.0-0.1) 11/09/22 11:40 Nucleated RBC % (auto) 0 % 11/09/22 11:40 Nucleated RBCs # 0.0 /100WBC 11/09/22 11:40 PT 12.70 SECONDS (12.1-14.9) 11/09/22 11:40 INR 0.92 (0.8-1.2) 11/09/22 11:40 Specimen Type Arterial 11/09/22 11:37 Sample Site Brachial, left 11/09/22 11:37 ABG pH 7.44 (7.35-7.45) 11/09/22 11:37 ABG pCO2 72.0 mmHg (35-45) H* 11/09/22 11:37 ABG pO2 102.0 mmHg (80.0-100.0) H 11/09/22 11:37 ABG HCO3 48.6 mmol/L (22-26) H 11/09/22 11:37 ABG Base Excess 20.8 mmol/L (-2.0-2.0) H 11/09/22 11:37 Osvaldo Test Pos 11/09/22 11:37 Hematocrit 34.2 % (42-52) L 11/09/22 11:37 O2 Delivery Device Nc 11/09/22 11:37 O2 Liters/Min 4.0 % 11/09/22 11:37 FiO2 36.0 % 11/09/22 11:37 Sales And Marketing Specialist ID Cak 11/09/22 11:37 Sodium 141 mmol/L (136-145) 11/09/22 11:40 Potassium 3.3 mmol/L (3.5-5.1) L 11/09/22 11:40 Chloride 89 mmol/L (98-107) L 11/09/22 11:40 Carbon Dioxide 44 mmol/L (22-29) H* 11/09/22 11:40 Anion Gap 11.3 (5-19) 11/09/22 11:40 BUN 8 mg/dL (8-23) 11/09/22 11:40 Creatinine 0.5 mg/dL (0.7-1.2) L 11/09/22 11:40 GFR Calculation 166.4 mL/min (90-130) H 11/09/22 11:40 Glucose 109 mg/dL (65-115) 11/09/22 11:40 POC Glucose 132 mg/dL (70-110) H 11/09/22 11:31 Calculated Osmolality 291 mOsm/kg (285-295) 11/09/22 11:40 Lactic Acid 0.8 mmol/L (0.5-2.2) 11/09/22 11:40 Calcium 9.0 mg/dL (8.5-10.5) 11/09/22 11:40 Magnesium 1.6 mg/dL (1.7-2.3) L 11/09/22 11:40 Total Bilirubin 0.5 mg/dL (0.15-1.2) 11/09/22 11:40 AST 17 U/L (0-40) 11/09/22 11:40 ALT 15 U/L (0-41) 11/09/22 11:40 Alkaline Phosphatase 88 U/L (40-130) 11/09/22 11:40 Ammonia 26 umol/L (16-60) 11/09/22 11:40 Troponin T Baseline 30 ng/L (0-15) H 11/09/22 11:40 Troponin T 120 Minute 26.25 ng/L (0-15) H 11/09/22 13:30 Delta Troponin T -3.75 ABS# (0-10) L 11/09/22 13:30 Total Protein 5.6 g/dL (6.6-8.7) L 11/09/22 11:40 Albumin 3.4 g/dL (3.5-5.2) L 11/09/22 11:40 Globulin 2.2 g/dL (1.3-4.6) 11/09/22 11:40 TSH 0.45 uIU/mL (0.27-4.20) 11/09/22 11:40 Urine Color Dark yellow (Yellow) 11/09/22 11:32 Urine Appearance Clear (CLEAR) 11/09/22 11:32 Urine pH 7 (5-7) 11/09/22 11:32 Ur Specific [place] 1.005 (1.005-1.030) 11/09/22 11:32 Urine Protein Neg (Negative) 11/09/22 11:32 Urine Glucose (UA) Norm (Normal) 11/09/22 11:32 Urine Ketones Negative (Negative) 11/09/22 11:32 Urine Blood Neg (Negative) 11/09/22 11:32 Urine Nitrate Negative (Negative) 11/09/22 11:32 Urine Bilirubin Neg (Negative) 11/09/22 11:32 Urine Urobilinogen 1 mg/dL (Negative) H 11/09/22 11:32 Ur Leukocyte Esterase Trace (Negative) H 11/09/22 11:32 Urine RBC 0-4 /hpf (0-2) H 11/09/22 11:32 Urine WBC 5-10 /hpf (0-5) H 11/09/22 11:32 Ur Squamous Epith Cells 0-4 /hpf (0-5) H 11/09/22 11:32 Amorphous Sediment Not Reportable 11/09/22 11:32 Urine Bacteria None /hpf (NONE) 11/09/22 11:32 Nasal Influ A H1 2009 PCR Not detected (NOT DETECT) 11/09/22 11:47 Salicylates < 0.3 mg/dL (3-10) L 11/09/22 11:40 Urine Opiates Screen Negative ng/mL (Negative) 11/09/22 11:32 Acetaminophen < 5.0 ug/mL (10-30) L 11/09/22 11:40 Ur Barbiturates Screen Negative ng/mL (Negative) 11/09/22 11:32 Ur Phencyclidine Scrn Negative ng/mL (Negative) 11/09/22 11:32 Ur Amphetamines Screen Negative ng/mL (Negative) 11/09/22 11:32 U Benzodiazepines Scrn Negative ng/mL (Negative) 11/09/22 11:32 Urine Cocaine Screen Negative ng/mL (Negative) 11/09/22 11:32 U Marijuana (THC) Screen Positive ng/mL (Negative) H 11/09/22 11:32 Ethyl Alcohol < 10 mg/dL (0-10) 11/09/22 11:40 Adenovirus (PCR) Not detected (NOT DETECT) 11/09/22 11:47 C. pneumoniae DNA (PCR) Not detected (NOT DETECT) 11/09/22 11:47 Coronavirus 229E (PCR) Not detected (NOT DETECT) 11/09/22 11:47 Human Metapneumovir PCR Not detected (NOT DETECT) 11/09/22 11:47 Influenza A (H1) PCR Not detected (NOT DETECT) 11/09/22 11:47 Influenza A (H3) PCR Not detected (NOT DETECT) 11/09/22 11:47 Influenza Type A (PCR) Not detected (NOT DETECT) 11/09/22 11:47 Influenza Type B (PCR) Not detected (NOT DETECT) 11/09/22 11:47 M. pneumoniae (PCR) Not detected (NOT DETECT) 11/09/22 11:47 Parainfluenza 1 (PCR) Not detected (NOT DETECT) 11/09/22 11:47 Parainfluenza 2 (PCR) Not detected (NOT DETECT) 11/09/22 11:47 Parainfluenza 3 (PCR) Not detected (NOT DETECT) 08 11:47 Parainfluenza 4 (PCR) Not detected (NOT DETECT) 08 11:47 RSV Type A (PCR) Not detected (NOT DETECT) 08 11:47 RSV Type B (PCR) Not detected (NOT DETECT) 08 11:47 Entero/Rhino (PCR) Not detected (NOT DETECT) 11/09/22 11:47 SARS-CoV-2 (PCR) Not detected (NOT DETECT) 08 11:47 A&P Assessment and plan (1) Acute alteration in mental status: (2) Acute and chronic respiratory failure: (3) Fever: Plan Mr. Vera is a 67-year-old male with advanced COPD, on chronic home oxygen but it appears he is noncompliant with the same, previously on home hospice until April 2022. He is brought to the emergency room via EMS after he called his primary care office stating that he was not feeling well. He was noted to be slurring his words and somewhat confused therefore primary care physician's office sent out EMS to his house. His son was available when EMS picked up the patient. He was able to answer basic questions like his name, his whereabouts and knew that he was being taken to the hospital. He received Ativan after presentation to the ER. At this time patient is only able to open eyes to painful stimulus, he is not answering any questions for me. He is currently on a BiPAP. ABG shows hypercapnic respiratory failure with PCO2 of 72 mmHg which is likely contributing to his current level of somnolence. Suspect him to have acute COPD exacerbation. Start scheduled nebulization with budesonide and DuoNebs. Start dexamethasone 6 mg IV every 24 hours. It is unknown at this point how many days he had been sick prior to events of today. He has a mild fever of 100 Fahrenheit, source evaluation is ongoing, may have community-acquired pneumonia versus aspiration pneumonia given his low GCS currently. We will start him on empiric antibiotic treatment with ceftriaxone and azithromycin Continue BiPAP ventilation, recheck ABG in 2 hours. TSH is normal Check ammonia level EKG without ST-T wave changes Troponin baseline at 30, trending down to 26 with a negative delta of 3, less likely to be ACS. Hold off on further doses of Ativan or other sedating medications to assess his mentation. Respiratory viral panel negative. U tox positive for marijuana. Negative alcohol CODE STATUS: Discussed with patient's son Jacob alicia. In keeping with patient's last known wishes he is to be a DNR/DNI. DVT prophylaxis: Lovenox Attestations Medical Necessity Statement*: Greater than 2 midnight admission is anticipated for acute on chronic hypoxic hypercapnic respiratory failure, need for BiPAP ventilation, need for IV antibiotics Coding Level of Care Code Critical Care >/= 30 minutes Diagnoses Acute alteration in mental status R41.82 Acute and chronic respiratory failure J96.20 Fever R50.9
--- NOTE | 2022-11-09 17:17 | ECG_ITS ---
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 Measurements Intervals [place] Rate: 99 P: 84 IN: 165 QRS: 50 QRSD: 91 T: 88 QT: 350 QTc: 450 Interpretive Statements SINUS RHYTHM Compared to ECG 11/09/2022 11:40:13 Sinus tachycardia no longer present Electronically Signed On 11-09-2022 18:57:49 CDT by Gala Acosta M.D. [id number]
[2022-11-09] MEDS: azithromycin 500 MG in sodium chloride 0.9% 250 ML 250 MG IV (18:00)
[2022-11-09 18:02] LABS: ABG PH Result 7.39 (7.35-7.45); Alveolar-Arterial Oxygen Gradi 11.3 mmHg (5-10); Arterial Blood Gas Hematocrit 34.6 % (42-52); Base Excess ABG 16.4 mmol/L (-2.0-2.0); Blood Gas Allen Test Pos; Blood Gas Operator Identificat CAK; Blood Gas Sample Site Radial, right; Blood Gas Sample Type Arterial; Carboxyhemoglobin 2.1 %THgb (0.4-20.1); HCO3 ABG 44.6 mmol/L (22-26); HGB O2 Sat 96.9 % (95-100); Ionized Calcium Level - ABG 1.2 mmol/L (1.1-1.4); Methemoglobin 0.5 % (0.4-1.5); Oxygen Device BIPAP; Oxygen Saturation ABG 99.5; Potassium Level - ABG 3.2 mmol/L (3.5-5.0); Total Hemoglobin 11.3 g/dL (14-18)
[2022-11-09 18:03] LABS: ABG PCO2 74.7 mmHg (35-45)
[2022-11-09] MEDS: cefTRIAXone 1,000 MG in sodium chloride 0.9% (plus) 50 ML 100 MG IV (18:05)
[2022-11-09] MEDS: pantoprazole 40 mg SDV IVP (18:06)
[2022-11-09] MEDS: dexamethasone 4 mg/mL INJ 6 MG IVP (18:06)
[2022-11-09] MEDS: enoxaparin 40 mg/0.4 mL Syringe SUBCUT (18:06)
[2022-11-09] MEDS: lidocaine 1% 5 ML in potassium chloride premix 100 ML 26.25 ML IV (18:07)
[2022-11-09 18:20] LABS: Ammonia 57 umol/L (16-60)
[2022-11-09 18:28] LABS: Troponin 5 6HR 24.16 ng/L (0-15)
[2022-11-09 18:46] LABS: Troponin 5 6HR Delta -5.84 ng/L (0-12)
[2022-11-09] MEDS: budesonide 0.5 mg/2 mL Neb INHALATION (20:49)
--- NOTE | 2022-11-09 23:08 | PC.NURSE ---
Contacted Dr. Thao to report that patient has not voided since admission, still has altered mental status, and is BiPAP dependent at this time.
[2022-11-10] VITALS (32 sets, daily range): BP systolic 114–180; BP diastolic 69–84; PULSE 94–122; RESP 12–24; TEMP 37.3–37.4; O2SAT 85–100
[2022-11-10] MEDS: ipratropium-albuterol 3 mL Neb INHALATION ×4 (02:30→20:18)
--- NOTE | 2022-11-10 03:17 | PC.NURSE ---
[address] Thao to report patient's c/o left ankle pain. The patient requested his home dose of Tramadol, which was reprted to Dr. Thao at this time as well.
[2022-11-10] MEDS: TRAMadol 50 mg Tablet PO ×3 (04:06→22:32)
[2022-11-10] MEDS: gabapentin 400 mg Capsule 800 MG PO (04:07)
[2022-11-10 04:32] LABS: Basophils % 0.1 %; Hematocrit 34.6 % (42.0-52.0); Hemoglobin 10.5 g/dL (11.7-16.6); Lymphocytes # 0.3 10^3/uL (0.8-4.8); Lymphocytes % 2.3 %; Mean Corpuscular HGB Conc 30.3 g/dL (30.0-36.0); Mean Corpuscular Hemoglobin 28.1 pg (28.0-34.0); Mean Corpuscular Volume 92.5 fl (80-94); Mean Platelet Volume 10.1 fL (7.4-10.4); Monocytes # 0.1 10^3/uL (0.2-0.9); Monocytes % 0.9 %; Neutrophils # 12.79 10^3/uL (1.8-7.7); Nucleated Red Blood Cells % 0 %; Platelet Count 241 10^3/cmm (130-400); Red Blood Count 3.74 10^6/uL (4.1-5.3); Red Cell Distribution Width 13.6 % (12.1-15.1); White Blood Count 13.3 10^3/uL (4.0-10.0)
[2022-11-10 04:45] LABS: Alanine Aminotransferase 15 U/L (0-41); Albumin Level 3.4 g/dL (3.5-5.2); Alkaline Phosphatase 84 U/L (40-130); Anion Gap 11.5 (5-19); Aspartate Amino Transferase 12 U/L (0-40); Blood Urea Nitrogen 14 mg/dL (8-23); Calcium 8.6 mg/dL (8.5-10.5); Carbon Dioxide 39 mmol/L (22-29); Chloride 96 mmol/L (98-107); Glomerular Filtration Rate 134.8 mL/min (90-130); Glucose 165 mg/dL (65-115); Osmolality Calculated 300 mOsm/kg (285-295); Potassium 3.5 mmol/L (3.5-5.1); Sodium 143 mmol/L (136-145); Total Bilirubin 0.4 mg/dL (0.15-1.2); Total Protein 5.4 g/dL (6.6-8.7)
[2022-11-10] MEDS: budesonide 0.5 mg/2 mL Neb INHALATION ×2 (09:20→20:18)
--- NOTE | 2022-11-10 12:31 | PM.PN ---
Subjective Subjective: Patient is awake and alert today. He is able to tell me that over the past week, his oxygen cannula house was broken therefore he was unable to keep his oxygen on for most part of the week. He also suspects he had a fever as he found himself in drenching sweats multiple times in the past week. States that a day prior to admission his oxygen kept falling and he suspects he may have been hypoxic. Overall his history does appear consistent with his clinical presentation and presentation with COPD exacerbation. Medications: Reviewed: Yes Vitals/I&O/Wt Last Vital Signs Temp 98.1 F 11/09/22 20:00 Pulse 112 H 11/10/22 09:30 Resp 22 H 11/10/22 09:30 BP 149/84 11/10/22 10:00 Pulse Ox 93 11/10/22 11:30 O2 Del Method Nasal Cannula 11/10/22 09:20 O2 Flow Rate 7 11/10/22 09:20 FiO2 35 11/10/22 02:30 11/09/22 11/10/22 11/10/22 22:59 06:59 14:59 Intake Total 300 / 1350 400 / 400 Output Total 800 / 800 Balance 300 / 1350 -800 / 550 400 / 400 Weight last 48 hrs Weight 108.862 kg Physical Exam Narrative: General: Awake alert and oriented x3 HEENT: PERRLA, pupils bilaterally equal and reactive, pallors not present Chest: Normal vesicular breath sounds, no added sounds, equal good air entry bilaterally CVS: S1-S2 regular, no murmurs, no tachycardia, no gallops, no rubs Abdomen: Soft, nontender, no organomegaly, bowel sounds present Neuro: Awake alert oriented x3, able to have a complete conversation, moves all extremities while laying in bed Urinary Catheter Management: Huff: Cath Placed During This Visit: yes Reason for Continuing Indwelling Catheter: Accurate Measurement of Urinary Output in Critically Ill Patients Urinary Catheter Date of Insertion: 11/10/22 Urinary Catheter Time of Insertion: 00:10 Data 11/10/22 03:55 11/10/22 03:55 Micro: Microbiology 11/09/22 11:40 Blood Culture - Preliminary Blood NEGATIVE TO DATE 11/09/22 11:40 Blood Culture - Preliminary Blood NEGATIVE TO DATE 11/09/22 11:32 Legionella Urinary Antigen - Final Urine,Voided Bacterial Antigens - Final A&P Assessment and plan (1) Acute alteration in mental status: (2) Acute and chronic respiratory failure: (3) Fever: Plan Mr. Hidalgo is a 67-year-old male with advanced COPD, on chronic home oxygen He has been having issues maintaining his oxygenation over the past week due to broken equipment Yesterday his ABG showed evidence of hypercapnic respiratory failure with PCO2 of 72 mmHg. Coupled with a history of not being able to use oxygen over the past week, most likely explanation for his altered mental status yesterday was a combination of hypoxia and hypercapnia He remained on BiPAP for much of the day yesterday. Today he has been weaned down to 7 L/min nasal cannula which is his baseline requirement. Patient is awake alert and oriented x3. Given his quick improvement after being on BiPAP and correction of his underlying respiratory problems, highly unlikely that patient has meningitis. Yesterday LP was attempted in the emergency room but was unable to be obtained. Will defer LP as clinically unlikely to be meningitis. Continue scheduled nebulization with budesonide and DuoNebs. Continue dexamethasone 6 mg IV every 24 hours. Fever has not recurred since yesterday. Possibility of community-acquired pneumonia versus aspiration pneumonia given that he had fever and symptoms a week prior to admission. Continue empiric antibiotic treatment with ceftriaxone, change atypical coverage from azithromycin to doxycycline to maintain coverage for possible tick associated illness causing fevers. EKG without ST-T wave changes Troponin baseline at 30, trending down to 26 with a negative delta of 3, less likely to be ACS. Suspect demand ischemia. Respiratory viral panel negative. U tox positive for marijuana. Negative alcohol Resume his home medications including gabapentin verapamil and duloxetine. Arranging home health at the time of discharge. Given patient's advanced COPD, it is often difficult for him to leave his home, it would be beneficial to him to have home health medication and essential equipment management . Patient tells me today that he was started on chronic daily steroids per PCP, however reports that he is recommended to be on prednisone 20 mg p.o. daily. Discussed with him that high-dose steroids may put him at risk of secondary infection such as pneumocystis therefore would prefer to use a lower dose of prednisone 5 to 10 mg/day instead. CODE STATUS: DNR/DNI. Discussed with patient. Bowman snot want hospice again, agreeable for home health DVT prophylaxis: Lovenox Transfer from ICU to [facility] today. Attestations Medical Necessity Statement*: Continued admission for COPD exacerbation, need for IV steroids, [facility] and monitor respiratory status over the next 24 hours Diagnoses Acute alteration in mental status R41.82 Acute and chronic respiratory failure J96.20 Fever R50.9
--- NOTE | 2022-11-10 14:44 | XRR_ITS ---
PROCEDURE INFORMATION: Exam: XR Left Ankle Exam date and time: 11/10/2022 2:47 PM Age: 67 years old Clinical indication: Pain; Ankle; Left; Additional info: L ankle pain TECHNIQUE: Imaging protocol: Radiologic exam of the left ankle. Views: 3 or more views. COMPARISON: No relevant prior studies available. FINDINGS: Bones/joints: Alignment is normal. Joint spaces are preserved. No acute fracture. Soft tissues: Visible soft tissues are unremarkable. XR/XR ankle LT min 3V* [id number] IMPRESSION: No acute findings.
[2022-11-10] MEDS: doxycycline 100 mg Tablet PO (17:54)
[2022-11-10] MEDS: enoxaparin 40 mg/0.4 mL Syringe SUBCUT (17:54)
[2022-11-10] MEDS: dexamethasone 4 mg/mL INJ 6 MG IVP (17:55)
[2022-11-10] MEDS: cefTRIAXone 1,000 MG in sodium chloride 0.9% (plus) 50 ML 100 MG IV (17:55)
[2022-11-10] MEDS: duloxetine 30 mg Capsule PO (18:21)
[2022-11-11] VITALS (10 sets, daily range): BP systolic 122–153; BP diastolic 76–88; PULSE 107–121; RESP 17–24; TEMP 36.9–37.2; O2SAT 94–100
[2022-11-11] MEDS: ipratropium-albuterol 3 mL Neb INHALATION ×2 (01:39→07:32)
[2022-11-11] MEDS: TRAMadol 50 mg Tablet PO (06:39)
[2022-11-11] MEDS: budesonide 0.5 mg/2 mL Neb INHALATION (07:32)
[2022-11-11] MEDS: pantoprazole DR 40 mg Tablet PO (09:22)
[2022-11-11] MEDS: gabapentin 400 mg Capsule 800 MG PO (09:22)
[2022-11-11] MEDS: duloxetine 30 mg Capsule PO (09:22)
[2022-11-11] MEDS: doxycycline 100 mg Tablet PO (09:22)
[2022-11-11] MEDS: verapamil ER 180 mg Tablet 360 MG PO (09:23)
--- NOTE | 2022-11-11 11:47 | PM.DCS ---
Discharge Providers Date of Admission: 11/09/22 17:01 Date of Discharge: November 11, 2022 Attending Provider at Admission: Muna Cortes MD Attending Provider at Discharge: Muna Cortes MD Primary Care Provider: BELÉN Brink Diagnoses at Discharge Discharge Diagnosis (1) Acute alteration in mental status: Status: Acute (2) Acute and chronic respiratory failure: Status: Acute (3) Fever: Status: Acute Reason for Visit Reason for Visit: AMS Hospital Course Hospital Course Patient is a 67-year-old male with known advanced COPD, chronically on home oxygen, he had been and over the past week. Stated that his oxygen cannula and hose had broken down and he was unable to keep his oxygen on for most part of the week. He also suspects he may have had a fever. On the day of admission he started to become confused and disoriented in the morning states that his oxygen was not staying on. He was brought into the emergency room with altered mental status, confusion and findings consistent with acute on chronic hypoxic hypercapnic respiratory failure. PCO2 was in the 70s upon admission unlikely that a combination of hypercapnia and hypoxia led up to his altered mentation. He remained on BiPAP through November 09, 2022. By the next morning his mental status returned to baseline. He became alert awake oriented x3, breathing much improved. He was treated for an acute on chronic COPD exacerbation and hypercapnia. He received IV steroids, scheduled nebulization with DuoNeb and budesonide. He is back to his baseline on the day of discharge requiring 6 L/min supplemental O2. Home health has been arranged to assist him with his medications and ensure he has the equipment that he needs at home. He is being discharged today in a stable condition. Instructed to use a higher dose of prednisone 20 mg/day over the next 1 weeks, then reduce his dose to 5 mg daily for chronic use. PPIs added for Gi protection with chronic steroids. He had a mild fever of 100 Fahrenheit on the day of admission which has not occurred again. May be claim service representative of acute viral illness versus community-acquired pneumonia. He was treated with ceftriaxone and doxycycline during admission. Physical Exam Narrative: General: No acute distress, AO x3 HEENT: PERRLA, pupils bilaterally equal and reactive, pallors not present Chest: Normal vesicular breath sounds, no added sounds, equal good air entry bilaterally, barrel chest CVS: S1-S2 regular, no murmurs, no tachycardia, no gallops, no rubs Abdomen: Soft, nontender, no organomegaly, bowel sounds present Neuro: No focal deficits, no facial deformity, AO x3, power 5/5 in all limbs Urinary Catheter Management: Huff: Cath Placed During This Visit: yes Reason for Continuing Indwelling Catheter: Accurate Measurement of Urinary Output in Critically Ill Patients Urinary Catheter Date of Insertion: 11/10/22 Urinary Catheter Time of Insertion: 00:10 Discharge Data Studies Completed and Pending Completed Studies During Hospitalization Category Date Time Status CT head wo con* [id number] Stat Cat Scan 11/09/22 11:22 Completed XR ankle LT min 3V* [id number] Routine Exams 11/10/22 14:44 Completed XR chest 1V portable [id number] Stat Exams 11/09/22 11:22 Completed Pending at discharge Category Date Time Status Blood Culture Stat Lab 11/09/22 11:40 Results Radiology Impressions Ankle X-Ray 11/10/22 14:44 IMPRESSION: No acute findings. Laboratory Results WBC 13.3 10^3/uL (4.0-10.0) H 11/10/22 03:55 RBC 3.74 10^6/uL (4.1-5.3) L 11/10/22 03:55 Hgb 10.5 g/dL (11.7-16.6) L 11/10/22 03:55 Hct 34.6 % (42.0-52.0) L 11/10/22 03:55 MCV 92.5 fl (80-94) 11/10/22 03:55 MCH 28.1 pg (28.0-34.0) 11/10/22 03:55 MCHC 30.3 g/dL (30.0-36.0) 11/10/22 03:55 RDW 13.6 % (12.1-15.1) 11/10/22 03:55 Plt Count 241 10^3/cmm (130-400) 11/10/22 03:55 MPV 10.1 fL (7.4-10.4) 11/10/22 03:55 Neut % (Auto) 96.0 % 11/10/22 03:55 Lymph % (Auto) 2.3 % 11/10/22 03:55 Hawkins % (Auto) 0.9 % 11/10/22 03:55 Eos % (Auto) 0.0 % 11/10/22 03:55 Baso % (Auto) 0.1 % 11/10/22 03:55 Neut # (Auto) 12.79 10^3/uL (1.8-7.7) H 11/10/22 03:55 Lymph # (Auto) 0.3 10^3/uL (0.8-4.8) L 11/10/22 03:55 Hawkins # (Auto) 0.1 10^3/uL (0.2-0.9) L 11/10/22 03:55 Eos # (Auto) 0.0 10^3/uL (0.0-0.8) 11/10/22 03:55 Baso # (Auto) 0.0 10^3/uL (0.0-0.1) 11/10/22 03:55 Nucleated RBC % (auto) 0 % 11/10/22 03:55 Nucleated RBCs # 0.0 /100WBC 11/10/22 03:55 PT 12.70 SECONDS (12.1-14.9) 11/09/22 11:40 INR 0.92 (0.8-1.2) 11/09/22 11:40 Specimen Type Arterial 11/09/22 17:51 Sample Site Radial, right 11/09/22 17:51 ABG pH 7.39 (7.35-7.45) 11/09/22 17:51 ABG pCO2 74.7 mmHg (35-45) H* 11/09/22 17:51 ABG pO2 107.0 mmHg (80.0-100.0) H 11/09/22 17:51 ABG HCO3 44.6 mmol/L (22-26) H 11/09/22 17:51 ABG O2 Saturation 99.5 11/09/22 17:51 ABG Base Excess 16.4 mmol/L (-2.0-2.0) H 11/09/22 17:51 Osvaldo Test Pos 11/09/22 17:51 A-a O2 Gradient 11.3 mmHg (5-10) H 11/09/22 17:51 Hematocrit 34.6 % (42-52) L 11/09/22 17:51 Hgb O2 Saturation 96.9 % (95-100) 11/09/22 17:51 Carboxyhemoglobin 2.1 %THgb (0.4-20.1) 11/09/22 17:51 Methemoglobin 0.5 % (0.4-1.5) 11/09/22 17:51 Total Hemoglobin 11.3 g/dL (14-18) L 11/09/22 17:51 Sodium 142.0 mmol/L (131-143) 11/09/22 17:51 Potassium 3.2 mmol/L (3.5-5.0) L 11/09/22 17:51 Glucose 152.0 mg/dL (70-115) H 11/09/22 17:51 Ionized Calcium 1.2 mmol/L (1.1-1.4) 11/09/22 17:51 O2 Delivery Device Bipap 11/09/22 17:51 O2 Liters/Min 4.0 % 11/09/22 11:37 FiO2 40.0 % 11/09/22 17:51 Immigration Attorney ID Cak 11/09/22 17:51 Sodium 143 mmol/L (136-145) 11/10/22 03:55 Potassium 3.5 mmol/L (3.5-5.1) 11/10/22 03:55 Chloride 96 mmol/L (98-107) L 11/10/22 03:55 Carbon Dioxide 39 mmol/L (22-29) H 11/10/22 03:55 Anion Gap 11.5 (5-19) 11/10/22 03:55 BUN 14 mg/dL (8-23) 11/10/22 03:55 Creatinine 0.6 mg/dL (0.7-1.2) L 11/10/22 03:55 GFR Calculation 134.8 mL/min (90-130) H 11/10/22 03:55 Glucose 165 mg/dL (65-115) H 11/10/22 03:55 POC Glucose 132 mg/dL (70-110) H 11/09/22 11:31 Calculated Osmolality 300 mOsm/kg (285-295) H 11/10/22 03:55 Lactic Acid 0.8 mmol/L (0.5-2.2) 11/09/22 11:40 Calcium 8.6 mg/dL (8.5-10.5) 11/10/22 03:55 Magnesium 1.6 mg/dL (1.7-2.3) L 11/09/22 11:40 Total Bilirubin 0.4 mg/dL (0.15-1.2) 11/10/22 03:55 AST 12 U/L (0-40) 11/10/22 03:55 ALT 15 U/L (0-41) 11/10/22 03:55 Alkaline Phosphatase 84 U/L (40-130) 11/10/22 03:55 Ammonia 57 umol/L (16-60) 11/09/22 17:55 Troponin T Baseline 30 ng/L (0-15) H 11/09/22 11:40 Troponin T 120 Minute 26.25 ng/L (0-15) H 11/09/22 13:30 Delta Troponin T -3.75 ABS# (0-10) L 11/09/22 13:30 Troponin T Hi Sens 6Hr 24.16 ng/L (0-15) H 11/09/22 17:55 Troponin T Hi Sens 6Hr Delta -5.84 ng/L (0-12) L 11/09/22 17:55 Total Protein 5.4 g/dL (6.6-8.7) L 11/10/22 03:55 Albumin 3.4 g/dL (3.5-5.2) L 11/10/22 03:55 Globulin 2.0 g/dL (1.3-4.6) 11/10/22 03:55 TSH 0.45 uIU/mL (0.27-4.20) 11/09/22 11:40 Urine Color Dark yellow (Yellow) 11/09/22 11:32 Urine Appearance Clear (CLEAR) 11/09/22 11:32 Urine pH 7 (5-7) 11/09/22 11:32 Ur Specific [place] 1.005 (1.005-1.030) 11/09/22 11:32 Urine Protein Neg (Negative) 11/09/22 11:32 Urine Glucose (UA) Norm (Normal) 11/09/22 11:32 Urine Ketones Negative (Negative) 11/09/22 11:32 Urine Blood Neg (Negative) 11/09/22 11:32 Urine Nitrate Negative (Negative) 11/09/22 11:32 Urine Bilirubin Neg (Negative) 11/09/22 11:32 Urine Urobilinogen 1 mg/dL (Negative) H 11/09/22 11:32 Ur Leukocyte Esterase Trace (Negative) H 11/09/22 11:32 Urine RBC 0-4 /hpf (0-2) H 11/09/22 11:32 Urine WBC 5-10 /hpf (0-5) H 11/09/22 11:32 Ur Squamous Epith Cells 0-4 /hpf (0-5) H 11/09/22 11:32 Amorphous Sediment Not Reportable 11/09/22 11:32 Urine Bacteria None /hpf (NONE) 11/09/22 11:32 Nasal Influ A H1 2009 PCR Not detected (NOT DETECT) 11/09/22 11:47 Salicylates < 0.3 mg/dL (3-10) L 11/09/22 11:40 Urine Opiates Screen Negative ng/mL (Negative) 11/09/22 11:32 Acetaminophen < 5.0 ug/mL (10-30) L 11/09/22 11:40 Ur Barbiturates Screen Negative ng/mL (Negative) 11/09/22 11:32 Ur Phencyclidine Scrn Negative ng/mL (Negative) 11/09/22 11:32 Ur Amphetamines Screen Negative ng/mL (Negative) 11/09/22 11:32 U Benzodiazepines Scrn Negative ng/mL (Negative) 11/09/22 11:32 Urine Cocaine Screen Negative ng/mL (Negative) 11/09/22 11:32 U Marijuana (THC) Screen Positive ng/mL (Negative) H 11/09/22 11:32 Ethyl Alcohol < 10 mg/dL (0-10) 11/09/22 11:40 Adenovirus (PCR) Not detected (NOT DETECT) 11/09/22 11:47 C. pneumoniae DNA (PCR) Not detected (NOT DETECT) 11/09/22 11:47 Coronavirus 229E (PCR) Not detected (NOT DETECT) 11/09/22 11:47 Human Metapneumovir PCR Not detected (NOT DETECT) 11/09/22 11:47 Influenza A (H1) PCR Not detected (NOT DETECT) 11/09/22 11:47 Influenza A (H3) PCR Not detected (NOT DETECT) 11/09/22 11:47 Influenza Type A (PCR) Not detected (NOT DETECT) 11/09/22 11:47 Influenza Type B (PCR) Not detected (NOT DETECT) 11/09/22 11:47 M. pneumoniae (PCR) Not detected (NOT DETECT) 11/09/22 11:47 Parainfluenza 1 (PCR) Not detected (NOT DETECT) 11/09/22 11:47 Parainfluenza 2 (PCR) Not detected (NOT DETECT) 11/09/22 11:47 Parainfluenza 3 (PCR) Not detected (NOT DETECT) 11/09/22 11:47 Parainfluenza 4 (PCR) Not detected (NOT DETECT) 11/09/22 11:47 RSV Type A (PCR) Not detected (NOT DETECT) 11/09/22 11:47 RSV Type B (PCR) Not detected (NOT DETECT) 11/09/22 11:47 Entero/Rhino (PCR) Not detected (NOT DETECT) 11/09/22 11:47 SARS-CoV-2 (PCR) Not detected (NOT DETECT) 11/09/22 11:47 Vitals Last Vital Signs Temp 98.5 F 11/11/22 10:00 Pulse 117 H 11/11/22 10:00 Resp 22 H 11/11/22 10:00 BP 153/85 11/11/22 10:00 Pulse Ox 99 11/11/22 10:00 O2 Del Method Nasal Cannula 11/11/22 10:00 O2 Flow Rate 4 11/11/22 07:34 FiO2 28 11/10/22 20:31 Discharge Plan Discharge Patient Disposition: Home Health Service Condition: Stable Prescriptions: New doxycycline monohydrate 100 mg Tablet 100 mg PO BID 5 Days Qty: 10 0RF pantoprazole 40 mg Tablet,Delayed Release (Dr/Ec) 40 mg PO DAILY 30 Days Qty: 30 0RF prednisone 5 mg tablet 5 mg PO DAILY 30 Days Qty: 30 0RF Continued glycerin (adult) [Fleet Glycerin (Adult)] Suppository 1 supp [place] DAILY PRN (Reason: constipation) Qty: 12 0RF magnesium hydroxide [Milk of Magnesia] 400 mg/5 mL suspension 15 ml PO BID PRN (Reason: constipation) Qty: 355 0RF albuterol sulfate 2.5 mg /3 mL (0.083 %) solution for nebulization 2.5 mg inhalation Q6H Qty: 300 2RF albuterol sulfate 90 mcg/actuation HFA aerosol inhaler 2 puff inhalation Q6H PRN (Reason: shortness of breath or wheezing) Qty: 25.5 1RF duloxetine 30 mg capsule,delayed release(DR/EC) 30 mg PO BID Qty: 180 0RF Trelegy Ellipta 100-62.5-25 mcg blister with device 1 inh inhalation Q24H Qty: 90 0RF gabapentin 800 mg tablet 800 mg PO DAILY Qty: 90 0RF tramadol 50 mg tablet 50 mg PO Q8H Qty: 120 2RF verapamil 360 mg capsule,ext rel. pellets 24 hr 360 mg PO DAILY Qty: 90 0RF Dulcolax (bisacodyl) 5 mg tablet,delayed release (DR/EC) 5 mg PO DAILY Qty: 30 0RF lidocaine 5 % adhesive patch,medicated 2 patch topical DAILY Qty: 60 0RF Rx Instructions: leave on most painful area for up to 12 hrs budesonide 0.5 mg/2 mL suspension for nebulization 0.5 mg inhalation DAILY PRN (Reason: Shortness Of Breath Or Wheezing) ibuprofen 200 mg Tablet 600 mg PO BID vitamin [id number] acid 0.5-1 mg Tablet 1 tab PO DAILY prednisone 20 mg tablet 20 mg PO DAILY 7 Days Qty: 7 0RF Discharge Orders: Discharge Order (Routine); Ordered 11/11/22 Ordered By: Muna Cortes Referrals: [facility] ([facility]) [Outside] Surendra Rizzo FNP-C [Primary Care Provider] - 1 week Discharge Diet: Usual diet Discharge Activity: Resume usual activity Patient Instructions: Hyponatremia (ED), Benzodiazepine Use Disorder (ED), Dementia (ED), Non-diabetic Hypoglycemia (ED), Hypoglycemia in a Person with Diabetes (ED), Concussion (ED), Alcohol Intoxication (ED), Subarachnoid Hemorrhage (GEN), Altered Mental Status (ED), Opioid Safety Discharge Attestations Time Spent in Discharge Care*: greater than 30 min Quality Metrics Clinical Quality Measures [ No reported AMI, CVA or VTE this stay] Coding Level of Care Code Acute Code for Chg Fwd Diagnoses Acute alteration in mental status R41.82 Acute and chronic respiratory failure J96.20 Fever R50.9
== END 2022-11-11 14:49 | disposition home health service (06) | DRG 190 ==
LOC: ER 14:39 → ICU 15:11 → CSU 11-10 16:33
PROVIDERS: Admitting Provider Student in an Organized Health Care Education/Training Program; Emergency Provider Emergency Medicine; PCP Nurse Practitioner; Visit Provider Student in an Organized Health Care Education/Training Program
DX: J44.1 Chronic obstructive pulmonary disease with (acute) exacerbation (principal); J96.21 Acute and chronic respiratory failure with hypoxia; J96.22 Acute and chronic respiratory failure with hypercapnia; Z99.81 Dependence on supplemental oxygen; Z79.51 Long term (current) use of inhaled steroids; Z79.891 Long term (current) use of opiate analgesic; Z91.199 Patient's noncompliance with other medical treatment and regimen due to unspecified reason; F17.210 Nicotine dependence, cigarettes, uncomplicated; I10 Essential (primary) hypertension; E78.2 Mixed hyperlipidemia; F12.90 Cannabis use, unspecified, uncomplicated; M25.572 Pain in left ankle and joints of left foot
CPT/HCPCS: 36415; 36416; 36600; 51702; 62270; 70450; 71045; 73610; 80051; 80053; 80306; 80307; 81001; 82140; 82330; 82803; 82805; 82962; 83605; 83735; 84443; 84484; 85025; 85610; 86403; 87040; 87449; 87486; 87581; 87633; 93005; 94640; 94660; 94664; 96365; 96366; 96367; 96372; 96376; 99291; C9113; J0456; J0692; J0696; J1100; J1650; J2060; J2930; J3372; J3475; J3480; J7030; J7050; J7626

== ENCOUNTER → 2022-11-26 14:29 | Outpatient (BNVA) | payer MEDICARE, SELFPAY | PROVIDERS: PCP Nurse Practitioner; Visit Provider Nurse Practitioner | DX: L12.0 Bullous pemphigoid (principal); D64.9 Anemia, unspecified | CPT/HCPCS: 80053; 83550; 85025 ==

== ENCOUNTER 2022-12-18 17:56 | Observation (INO) | payer MEDICARE, SELFPAY ==
[2022-12-18 17:57] VITALS: BP 143/76; PULSE 103; RESP 22; TEMP 36.6; O2SAT 97
--- NOTE | 2022-12-18 18:01 | XRR_ITS ---
PROCEDURE INFORMATION: Exam: XR Chest Exam date and time: 12/18/2022 6:05 PM Age: 67 years old Clinical indication: Dyspnea TECHNIQUE: Imaging protocol: Radiologic exam of the chest. Views: 1 view. COMPARISON: CR XR chest 1V portable [id number] 11/09/2022 11:52 AM FINDINGS: Lungs: COPD morphology of the chest. Pleural spaces: Unremarkable. No pleural effusion. No pneumothorax. Heart/Mediastinum: Unremarkable. No cardiomegaly. Bones/joints: There are degenerative changes in the thoracic spine and across the acromioclavicular joints. XR/XR chest 1V portable [id number] IMPRESSION: COPD morphology of the chest.
--- NOTE | 2022-12-18 18:04 | ED_ITS ---
HPI - SOB/Dyspnea General: Chief Complaint: Shortness of Breath/Dyspnea Stated Complaint: resp Distress Time Seen by Provider: 12/18/22 17:56 History of Present Illness: HPI Narrative: Patient presents to the ER by EMS with complaints of shortness of breath. Patient was at [facility] for leg issues when the clinic noticed his SPO2 was in the 70s. He called EMS EMS gave the patient a total of 4 albuterol nebulizer treatments 1 DuoNeb treatment, 125 mg Solu-Medrol and 1.5 g of magnesium, and 2 doses of nitro. Patient did state he has a bit of chest pain that radiates into his back but thinks is more with his breathing. The nitro did not help. Harriet ribera stated the breathing treatments has helped his breathing. Patient is currently on 5 L per OxyMask with O2 sat of approximately 97% patient does have a history of COPD and is on multiple breathing medicines. Patient says he should be on 6 L of oxygen at all times he has weaned himself down to 4 L of oxygen. Review of Systems General: Reports: 10 or more systems reviewed and unremarkable except in HPI and below PFSH ED PFSH: Medical History Acute encephalopathy Acute exacerbation of chronic obstructive airways disease Acute respiratory failure with hypoxia and hypercapnia Bullous pemphigoid Cigarette smoker COPD (chronic obstructive pulmonary disease) Essential hypertension Exertional dyspnea Hyperlipidemia, mixed Lumbar neuralgia Supplemental oxygen dependent Surgical History History of cystostomy History of hemorrhoidectomy History of lumbar surgery Family History Other Cancer Diabetes Hyperlipidemia Hypertension Social History Smoking and tobacco status: current every day smoker cigarettes Packs smoked per day: 1 Years cigarettes smoked: 50 [ Other cigarette details: currently 1ppd ] Second hand smoke exposure: No Smoking risk assessment/counseling performed?: Yes Alcohol intake: current Alcohol intake frequency: holidays/special occasions only Desire information about alcohol rehabilitation?: No Counseling given: No Substance/Drug Use: unknown Desire information about substance/drug rehabilitation?: No Counseling given: No Adopted: No Caregiver/support person: Yes Lives independently: Yes Household members: none Housing: House Marital status: Number of children: 4 Number of grandchildren: 4 Highest education level completed: GED or Equivalent Current occupational status: retired Current occupational exposures/hazards: No Pets and animals: Yes Do you think of yourself as: Straight/Heterosexual Current gender identity: Male Physical Exam Const: COMMON NORMALS: no acute distress, average body habitus, patient oriented x3, no limitations, healthy appearing, alert and well nourished HENMT: COMMON NORMALS: normocephalic, atraumatic, hearing grossly normal bilaterally, external ears normal, Normal external nose present and moist oral mucous membranes HEAD & SCALP: normocephalic and atraumatic NOSE: Normal external nose present EXTERNAL EAR: Yes external ears normal Eye: COMMON NORMALS: Equal, round and reactive pupils present, EOMs intact bilaterally, conjunctivae normal and no scleral icterus CONJUNCTIVA: Yes conjunctivae normal PUPIL: Yes Equal, round and reactive pupils present Neck/C-Spine: COMMON NORMALS: full ROM, no lymphadenopathy, supple, no meningeal signs, no JVD and Thyroid normal THYROID: Thyroid normal Lymph: LYMPHATIC: no lymphadenopathy noted Chest: COMMONS NORMALS: normal inspection of the chest and normal palpation of entire chest wall Resp: AUSCULTATION: diminished lung sounds Cardio: COMMON NORMALS: no JVD, regular rate, regular rhythm, S1 normal heart sound present, S2 normal heart sound present, No gallops present (Cardio), No clicks present (Cardio), No murmurs present (Cardio) and No rub (Cardio) RAT E: regular rate RHYTHM: regular rhythm HEART SOUNDS: S1 normal heart sound present and S2 normal heart sound present GI: COMMON NORMALS: Normal to inspection, nondistended, normoactive bowel sounds present Extremity: NARRATIVE EXTREMITY EXAM: 1-2+ pitting edema bilateral lower extremities Neuro: COMMON NORMALS: patient oriented x3 SENSORIUM/ORIENTATION: Yes alert MENINGEAL SIGNS: Yes no meningeal signs Course Vital Signs: Vital signs: Vital Signs Temperature 97.8 F 12/18/22 17:57 Pulse Rate 99 12/18/22 22:44 Respiratory Rate 16 12/18/22 22:44 Blood Pressure 177/97 12/18/22 22:44 Pulse Oximetry 94 12/18/22 22:44 Oxygen Delivery Me thod BiPAP 12/18/22 20:50 Oxygen Flow Rate 5 12/18/22 18:42 Fraction of Inspir ed Oxygen 35 12/18/22 18:31 MDM - SOB/Dyspnea Medical Decision Making Patient presents to the ER with complaints of shortness of breath. Patient was on oxy mask on 5 L upon arrival patient is already had multiple doses of nebulizers, magnesium, steroids, nitro, an ABG was obtained which showed his PCO2 was 100 approximately he was placed immediately on BiPAP. Lab work was obtained as well as chest x-ray and urine. Patient will be admitted to the hospitalist Dr. Cortes who agreed to take him to the ICU for further evaluation and treatment of what appears to be acute exacerbation of COPD. Differential Diagnosis Likely acute exacerbation of chronic obstructive airways disease, congestive heart failure and community acquired pneumonia; Unlikely asthma with exacerbation or pulmonary embolism Medical Records I reviewed the patient's medical records. Lab Data I reviewed the patient's lab results. 12/18/22 19:05 12/18/22 19:05 Labs/Radiology: Radiology Impressions Chest X-Ray 12/18/22 18:01 IMPRESSION: COPD morphology of the chest. Laboratory Results WBC 14.17 10^3/uL (3.29-11.43) H 12/18/22 19:05 RBC 4.09 10^6/uL (3.85-5.65) 12/18/22 19:05 Hgb 11.70 g/dL (11.27-16.99) 12/18/22 19:05 Hct 39.9 % (37-53) 12/18/22 19:05 MCV 97.6 fl (82-101) 12/18/22 19:05 MCH 28.6 pg (27-33) 12/18/22 19:05 MCHC 29.3 g/dL (30-55) L 12/18/22 19:05 RDW 14.5 % (12.1-15.1) 12/18/22 19:05 Plt Count 212 10^3/cmm (157-399) 12/18/22 19:05 MPV 9.7 fL (7.4-10.4) 12/18/22 19:05 Neut % (Auto) 93.0 % 12/18/22 19:05 Lymph % (Auto) 2.7 % 12/18/22 19:05 [place] % (Auto) 3.2 % 12/18/22 19:05 Eos % (Auto) 0.1 % 12/18/22 19:05 Baso % (Auto) 0.2 % 12/18/22 19:05 Neut # (Auto) 13.17 10^3/uL (1.8-7.7) H 12/18/22 19:05 Lymph # (Auto) 0.4 10^3/uL (0.8-4.8) L 12/18/22 19:05 [place] # (Auto) 0.5 10^3/uL (0.2-0.9) 12/18/22 19:05 Eos # (Auto) 0.0 10^3/uL (0.0-0.8) 12/18/22 19:05 Baso # (Auto) 0.0 10^3/uL (0.0-0.1) 12/18/22 19:05 Nucleated RBC % (auto) 0 % 12/18/22 19:05 Nucleated RBCs # 0.0 /100WBC 12/18/22 19:05 Specimen Type Arterial 12/18/22 18:04 Sample Site Radial, right 12/18/22 18:04 ABG pH 7.26 (7.35-7.45) L 12/18/22 18:04 ABG pCO2 107.0 mmHg (35-45) H* 12/18/22 18:04 ABG pO2 80.4 mmHg (80.0-100.0) 12/18/22 18:04 ABG HCO3 48.2 mmol/L (22-26) H 12/18/22 18:04 ABG O2 Saturation 96.6 12/18/22 18:04 ABG Base Excess 16.9 mmol/L (-2.0-2.0) H 12/18/22 18:04 Osvaldo Test Pos 12/18/22 18:04 A-a O2 Gradient Not Reportable 12/18/22 18:04 Hematocrit 35.0 % (42-52) L 12/18/22 18:04 Hgb O2 Saturation 90.7 % (95-100) L 12/18/22 18:04 Carboxyhemoglobin 5.6 %THgb (0.4-20.1) 12/18/22 18:04 Methemoglobin 0.5 % (0.4-1.5) 12/18/22 18:04 Total Hemoglobin 11.4 g/dL (14-18) L 12/18/22 18:04 Sodium 142.0 mmol/L (131-143) 12/18/22 18:04 Potassium 3.9 mmol/L (3.5-5.0) 12/18/22 18:04 Glucose 130.0 mg/dL (70-115) H 12/18/22 18:04 Ionized Calcium 1.2 mmol/L (1.1-1.4) 12/18/22 18:04 O2 Delivery Device Nc 12/18/22 18:04 O2 Liters/Min 5.0 % 12/18/22 18:04 Nuclear Medicine Specialist ID Cak 12/18/22 18:04 Sodium 142 mmol/L (136-145) 12/18/22 19:05 Potassium 3.7 mmol/L (3.5-5.1) 12/18/22 19:05 Chloride 90 mmol/L (98-107) L 12/18/22 19:05 Carbon Dioxide 46 mmol/L (22-29) H* 12/18/22 19:05 Anion Gap 9.7 (5-19) 12/18/22 19:05 BUN 11 mg/dL (8-23) 12/18/22 19:05 Creatinine 0.5 mg/dL (0.7-1.2) L 12/18/22 19:05 GFR Calculation 166.4 mL/min (90-130) H 12/18/22 19:05 Glucose 126 mg/dL (65-115) H 12/18/22 19:05 Calculated Osmolality 295 mOsm/kg (285-295) 12/18/22 19:05 Lactic Acid 1.1 mmol/L (0.5-2.2) 12/18/22 19:05 Calcium 9.2 mg/dL (8.5-10.5) 12/18/22 19:05 Magnesium 2.4 mg/dL (1.7-2.3) H 12/18/22 19:05 Total Bilirubin 0.4 mg/dL (0.15-1.2) 12/18/22 19:05 AST 17 U/L (0-40) 12/18/22 19:05 ALT 21 U/L (0-41) 12/18/22 19:05 Alkaline Phosphatase 90 U/L (40-130) 12/18/22 19:05 Troponin T Baseline 27 ng/L (0-15) H 12/18/22 19:05 Troponin T 120 Minute 23.82 ng/L (0-15) H 12/18/22 21:03 Delta Troponin T -3.18 ABS# (0-10) L 12/18/22 21:03 NT-Pro-B Natriuret Pep 174 pg/mL (0-125) H 12/18/22 19:05 Total Protein 6.7 g/dL (6.6-8.7) 12/18/22 19:05 Albumin 4.0 g/dL (3.5-5.2) 12/18/22 19:05 Globulin 2.7 g/dL (1.3-4.6) 12/18/22 19:05 Procalcitonin 0.07 ng/mL (0-0.5) 12/18/22 19:05 Urine Color Yellow (Yellow) 12/18/22 21:36 Urine Appearance Clear (CLEAR) 12/18/22 21:36 Urine pH 5 (5-7) 12/18/22 21:36 Ur Specific [place] 1.015 (1.005-1.030) 12/18/22 21:36 Urine Protein Neg (Negative) 12/18/22 21:36 Urine Glucose (UA) Norm (Normal) 12/18/22 21:36 Urine Ketones 1+ (Negative) H 12/18/22 21:36 Urine Blood Neg (Negative) 12/18/22 21:36 Urine Nitrate Negative (Negative) 12/18/22 21:36 Urine Bilirubin Neg (Negative) 12/18/22 21:36 Urine Urobilinogen Neg mg/dL (Negative) 12/18/22 21:36 Ur Leukocyte Esterase Negative (Negative) 12/18/22 21:36 Nasal Influ A H1 2008 PCR Not detected (NOT DETECT) 12/18/22 18:28 Adenovirus (PCR) Not detected (NOT DETECT) 12/18/22 18:28 C. pneumoniae DNA (PCR) Not detected (NOT DETECT) 12/18/22 18:28 Coronavirus 229E (PCR) Not detected (NOT DETECT) 12/18/22 18:28 Human Metapneumovir PCR Not detected (NOT DETECT) 12/18/22 18:28 Influenza A (H1) PCR Not detected (NOT DETECT) 12/18/22 18:28 Influenza A (H3) PCR Not detected (NOT DETECT) 12/18/22 18:28 Influenza Type A (PCR) Not detected (NOT DETECT) 12/18/22 18:28 Influenza Type B (PCR) Not detected (NOT DETECT) 12/18/22 18:28 M. pneumoniae (PCR) Not detected (NOT DETECT) 12/18/22 18:28 Parainfluenza 1 (PCR) Not detected (NOT DETECT) 12/18/22 18:28 Parainfluenza 2 (PCR) Not detected (NOT DETECT) 12/18/22 18:28 Parainfluenza 3 (PCR) Not detected (NOT DETECT) 12/18/22 18:28 Parainfluenza 4 (PCR) Not detected (NOT DETECT) 12/18/22 18:28 RSV Type A (PCR) Not detected (NOT DETECT) 12/18/22 18:28 RSV Type B (PCR) Not detected (NOT DETECT) 12/18/22 18:28 Entero/Rhino (PCR) Not detected (NOT DETECT) 12/18/22 18:28 SARS-CoV-2 (PCR) Not detected (NOT DETECT) 12/18/22 18:28 All radiology interpretation(s) finalized by discharge EKG Data EKG 1: I personally reviewed and interpreted this EKG as follows: EKG Interpretation Date: 12/18/22 EKG interpretation time: 18:07 Prior EKG tracings: not available for review Interpretation: EKG showed ventricular rate 100 beats minute, AR interval 157, QRS duration 81, QTc 371, sinus tachycardia, no ST-T wave changes EKG 2: I personally reviewed and interpreted this EKG as follows: EKG Interpretation Date: 12/18/22 EKG interpretation time: 21:24 Prior EKG tracings: available for review Interpretation: EKG showed ventricular rate 94 bpm, AR interval 150, QRS duration 90, QTc 4 3, sinus rhythm no ST-T wave changes Discharge Plan Discharge Patient Disposition: Admitted As Inpatient Clinical Impression: Acute exacerbation of chronic obstructive airways disease Condition: Stable Prescriptions: No Action glycerin (adult) [Fleet Glycerin (Adult)] Suppository 1 supp AR DAILY PRN (Reason: constipation) Qty: 12 0RF magnesium hydroxide [Milk of Magnesia] 400 mg/5 mL suspension 15 ml PO BID PRN (Reason: constipation) Qty: 355 0RF Probiotic Digestive Care 20 billion cell capsule See Rx Instructions PO DAILY Qty: 30 2RF Rx Instructions: 20 billion cell orally daily; tramadol 50 mg tablet 50 mg PO Q8H Qty: 120 1RF MediHoney (honey) 100 % paste 1 applic topical BID Qty: 103 0RF albuterol sulfate 2.5 mg /3 mL (0.083 %) solution for nebulization 2.5 mg inhalation Q6H Qty: 300 2RF albuterol sulfate 90 mcg/actuation HFA aerosol inhaler 2 puff inhalation Q6H PRN (Reason: shortness of breath or wheezing) Qty: 25.5 1RF duloxetine 30 mg capsule,delayed release(DR/EC) 30 mg PO BID Qty: 180 0RF Trelegy Ellipta 100-62.5-25 mcg blister with device 1 inh inhalation Q24H Qty: 90 0RF gabapentin 800 mg tablet 800 mg PO DAILY Qty: 90 0RF prednisone 10 mg tablet 10 mg PO BID 30 Days Qty: 60 0RF verapamil 180 mg capsule,ext rel. pellets 24 hr 180 mg PO DAILY Qty: 30 0RF Dulcolax (bisacodyl) 5 mg tablet,delayed release (DR/EC) 5 mg PO DAILY Qty: 30 0RF lidocaine 5 % adhesive patch,medicated 2 patch topical DAILY Qty: 60 0RF Rx Instructions: leave on most painful area for up to 12 hrs budesonide 0.5 mg/2 mL suspension for nebulization 0.5 mg inhalation DAILY PRN (Reason: Shortness Of Breath Or Wheezing) ibuprofen 200 mg Tablet 600 mg PO BID vitamin P25-pcvyy acid 0.5-1 mg Tablet 1 tab PO DAILY Referrals: Surendra Rizzo, BEHAVIORAL THERAPIST-C [Primary Care Provider] - Coding Level of Care Code ED Reduction Plant Supervisor for Jesus Ruiz
--- NOTE | 2022-12-18 18:07 | ECG_ITS ---
[facility] Test Date: 2022-12-18 Pat Name: Avni Hidalgo Department: Room: Gender: Male Management Developer: : 1955 Requested By: Meir Castillo Order Number: [id number] Kit MD: Adis Canada M.D. Measurements Intervals [place] Rate: 101 P: 83 SD: 157 QRS: 53 QRSD: 81 T: 82 QT: 313 QTc: 407 Interpretive Statements SINUS TACHYCARDIA Compared to ECG 11/09/2022 17:17:50 Sinus rhythm no longer present Electronically Signed On 12-19-2022 7:40:40 CDT by Adis Canada M.D. [id number]
[2022-12-18 18:15] LABS: ABG PH Result 7.26 (7.35-7.45); Base Excess ABG 16.9 mmol/L (-2.0-2.0); Blood Gas Allen Test Pos; Blood Gas Operator Identificat CAK; Blood Gas Sample Site Radial, right; Blood Gas Sample Type Arterial; Carboxyhemoglobin 5.6 %THgb (0.4-20.1); HCO3 ABG 48.2 mmol/L (22-26); HGB O2 Sat 90.7 % (95-100); Ionized Calcium Level - ABG 1.2 mmol/L (1.1-1.4); Methemoglobin 0.5 % (0.4-1.5); Oxygen Device NC; Oxygen Saturation ABG 96.6; PO2 ABG 80.4 mmHg (80.0-100.0); Potassium Level - ABG 3.9 mmol/L (3.5-5.0); Total Hemoglobin 11.4 g/dL (14-18)
[2022-12-18 18:20] VITALS: BP 130/51; PULSE 85; RESP 22; O2SAT 92
[2022-12-18 18:31] VITALS: PULSE 97; RESP 17; O2SAT 95
[2022-12-18 18:42] VITALS: BP 126/67; PULSE 104; RESP 18; O2SAT 95
[2022-12-18 19:13] LABS: Basophils % 0.2 %; Eosinophils % 0.1 %; Hematocrit 39.9 % (37-53); Lymphocytes # 0.4 10^3/uL (0.8-4.8); Lymphocytes % 2.7 %; Mean Corpuscular HGB Conc 29.3 g/dL (30-55); Mean Corpuscular Hemoglobin 28.6 pg (27-33); Mean Corpuscular Volume 97.6 fl (82-101); Mean Platelet Volume 9.7 fL (7.4-10.4); Monocytes # 0.5 10^3/uL (0.2-0.9); Monocytes % 3.2 %; Neutrophils # 13.17 10^3/uL (1.8-7.7); Nucleated Red Blood Cells % 0 %; Platelet Count 212 10^3/cmm (157-399); Red Blood Count 4.09 10^6/uL (3.85-5.65); Red Cell Distribution Width 14.5 % (12.1-15.1); White Blood Count 14.17 10^3/uL (3.29-11.43)
[2022-12-18 19:43] LABS: Lactic Sepsis W/Reflex 1.1 mmol/L (0.5-2.2)
[2022-12-18 19:47] LABS: Troponin(5th) Baseline 27 ng/L (0-15)
[2022-12-18 19:55] LABS: NT Pro B Type Natriuretic Pept 174 pg/mL (0-125); Procalcitonin 0.07 ng/mL (0-0.5)
--- NOTE | 2022-12-18 20:02 | ECG_ITS ---
[facility] Test Date: 2022-12-18 Pat Name: Avni Hidalgo Department: Room: Gender: Male Relocation Commissioner: : 1955 Requested By: Meir Castillo Order Number: [id number] Kit MD: Adis Canada M.D. Measurements Intervals [place] Rate: 94 P: 77 [place]: 150 QRS: 57 QRSD: 90 T: 85 QT: 351 QTc: 440 Interpretive Statements SINUS RHYTHM Compared to ECG 12/18/2022 18:07:27 Sinus tachycardia no longer present Electronically Signed On 12-19-2022 7:42:03 CDT by Adis Canada M.D. [id number]
[2022-12-18 20:06] LABS: Alanine Aminotransferase 21 U/L (0-41); Alkaline Phosphatase 90 U/L (40-130); Anion Gap 9.7 (5-19); Aspartate Amino Transferase 17 U/L (0-40); Blood Urea Nitrogen 11 mg/dL (8-23); Calcium 9.2 mg/dL (8.5-10.5); Chloride 90 mmol/L (98-107); Globulin 2.7 g/dL (1.3-4.6); Glomerular Filtration Rate 166.4 mL/min (90-130); Glucose 126 mg/dL (65-115); Magnesium 2.4 mg/dL (1.7-2.3); Osmolality Calculated 295 mOsm/kg (285-295); Potassium 3.7 mmol/L (3.5-5.1); Sodium 142 mmol/L (136-145); Total Bilirubin 0.4 mg/dL (0.15-1.2); Total Protein 6.7 g/dL (6.6-8.7)
[2022-12-18 20:08] LABS: Carbon Dioxide 46 mmol/L (22-29)
[2022-12-18 20:35] LABS: Adenovirus Not Detected (NOT DETECT); Chlamydia Pneumoniae Not Detected (NOT DETECT); Coronavirus 229E,HKU1,NL63,OC4 Not Detected (NOT DETECT); Human Metapneumovirus Not Detected (NOT DETECT); Human Rhinovirus/Enterovirus Not Detected (NOT DETECT); Influenza A Not Detected (NOT DETECT); Influenza A H1 Not Detected (NOT DETECT); Influenza A H1-2009 Not Detected (NOT DETECT); Influenza A H3 Not Detected (NOT DETECT); Influenza B Not Detected (NOT DETECT); Mycoplasma Pneumoniae Not Detected (NOT DETECT); Parainfluenza Virus Type 1 Not Detected (NOT DETECT); Parainfluenza Virus Type 2 Not Detected (NOT DETECT); Parainfluenza Virus Type 3 Not Detected (NOT DETECT); Parainfluenza Virus Type 4 Not Detected (NOT DETECT); Respiratory Syncytial Virus A Not Detected (NOT DETECT); Respiratory Syncytial Virus B Not Detected (NOT DETECT); SARS-COV-2 Not Detected (NOT DETECT)
[2022-12-18 20:50] VITALS: BP 149/72; PULSE 102; RESP 16; O2SAT 94
[2022-12-18 21:25] LABS: Troponin 5 2HR 23.82 ng/L (0-15)
[2022-12-18 21:26] LABS: Troponin 5 2HR Delta -3.18 ABS# (0-10)
[2022-12-18 21:41] LABS: Add Urine Microscopic? NO; Charge for UA Resulting for Rev
[2022-12-18 21:44] LABS: Bilirubin Urine Neg (Negative); Blood Urine Neg (Negative); Glucose Urine UA Norm (Normal); Ketones Urine 1+ (Negative); Leukocyte Esterase Urine Negative (Negative); Nitrate Urine Negative (Negative); Protein Urine Neg (Negative); Specific Gravity, Urine 1.015 (1.005-1.030); Urine Appearance Clear (CLEAR); Urine Color Yellow (Yellow); Urobilinogen Urine Neg (Negative); pH Urine 5 (5-7)
[2022-12-18 22:44] VITALS: BP 177/97; PULSE 99; RESP 16; O2SAT 94
[2022-12-18 23:34] LABS: ABG PH Result 7.41 (7.35-7.45); Alveolar-Arterial Oxygen Gradi 9.9 mmHg (5-10); Arterial Blood Gas Hematocrit 34.9 % (42-52); Base Excess ABG 18.8 mmol/L (-2.0-2.0); Blood Gas Sample Site Brachial, left; Blood Gas Sample Type Arterial; Carboxyhemoglobin 4.2 %THgb (0.4-20.1); HCO3 ABG 46.9 mmol/L (22-26); HGB O2 Sat 93.7 % (95-100); Ionized Calcium Level - ABG 1.2 mmol/L (1.1-1.4); Methemoglobin 0.7 % (0.4-1.5); Oxygen Device BIPAP; Oxygen Saturation ABG 98.5; PO2 ABG 83.7 mmHg (80.0-100.0); Potassium Level - ABG 4.1 mmol/L (3.5-5.0); Total Hemoglobin 11.4 g/dL (14-18)
[2022-12-18 23:35] LABS: ABG PCO2 74.2 mmHg (35-45)
[2022-12-19] VITALS (190 sets, daily range): BP systolic 108–185; BP diastolic 55–148; PULSE 88–131; RESP 11–44; TEMP 36.6–37.1; O2SAT 73–100; BMI 10.4
--- NOTE | 2022-12-19 00:02 | ECG_ITS ---
[facility] Test Date: 2022-12-19 Pat Name: Avni Hidalgo Department: Room: [facility] Gender: Male Accounts Receivable Analyst: : 1955 Requested By: Meir Castillo Order Number: [id number] Kit MD: Jose Ansari M.D. Measurements Intervals [place] Rate: 108 P: 85 VT: 157 QRS: 44 QRSD: 80 T: 73 QT: 324 QTc: 436 Interpretive Statements SINUS TACHYCARDIA WITH OCCASIONAL VENTRICULAR PREMATURE COMPLEXES ABNORMAL RHYTHM ECG Compared to ECG 12/18/2022 21:24:53 Ventricular premature complex(es) now present Sinus rhythm no longer present Electronically Signed On 12-20-2022 8:03:23 CDT by Jose Ansari M.D. [id number]
--- NOTE | 2022-12-19 01:00 | P.HP_ITS ---
Providers/Chief Complaint Admitting Physician: Muna Cortes MD Primary Care Provider: Surendra Rizzo, ROLL FORMING MACHINE SET UP MECHANIC-C Chief Complaint: resp Distress History of Present Illness Avni Hidalgo is a 67 year old male Avni Hidalgo is a 67 year old male with a past medical history of severe COPD for which she is on chronic supplemental O2 of 6 to 7 L/min with which he is reportedly noncompliant.??He was last hospitalized approximately 1 month ago for acute on chronic COPD exacerbation a nd hypercapnic respiratory failure. It appears he used to be on home hospice until April 2022 for advanced COPD but then took himself off of it. He presented to the emergency room today, having being sent by his primary care physician after they noted that upon clinic arrival he was saturating 70% on room air. This is not unusual for the patient but I am unable to establish why he was not wearing his supplemental O2 as he is supposed to do at all times. His ABG showed evidence of hypercapnic respiratory failure, acute on chronic with PCO2 up to 100. He was started on a BiPAP ventilation following which repeat ABG was repeated after 2 hours and showed that PCO2 had trended down to 74. He has been afebrile and hemodynamically stable. He has recently been followed by his primary care provider for bullous pemphigoid for which he was on prednisone 20 mg daily.currently he has healed over bulla the left over left lateral ankle. His left lower extremity is more swollen compared to the right side, he states this has been this way for at least a month now. Review of Systems General: Reports: 10 or more systems reviewed and unremarkable except in HPI and below Const: Denies: fever(s), chills or body aches Eyes: Denies: change in vision, blurry vision or photophobia ENMT: Reports: hoarseness; Denies: throat pain, enlarged tonsils, odynophagia or nasal congestion Card: Denies: chest pain, palpitations, irregular heart rhythm, edema, swelling of feet/ankles, lightheadedness, pre-syncope, dyspnea on exertion or orthopnea Resp: Denies: dyspnea, productive cough, non-productive cough, wheezing, stridor, pain on inspiration, change in phlegm color, hemoptysis or chest congestion GI: Denies: abdominal pain, nausea, vomiting, hematemesis, coffee ground emesis, dysphagia, heartburn, diarrhea, constipation, GI cramping, change in stool character, hematochezia or melena : Denies: flank pain, dysuria, urinary frequency, urinary urgency, urinary hesitancy or hematuria Musc: Denies: neck pain, back pain, extremity pain, joint swelling, joint warmth or deformity Neuro: Denies: headache(s), numbness in extremities, weakness in extremities, sensory changes, difficulty walking, frequent falls, dizziness, vertigo, behavioral changes, Slurred speech present or seizure-like activity Psych: Denies: anxiety, depression, suicidal ideation or homicidal ideation Endo: Denies: polyuria, polydipsia, tired all the time, cold intolerance or hot flashes Shane/Lymph: Denies: easy bruising or easy bleeding Medications/Allergies Home Medications Medication Instructions Recorded Confirmed Last Taken Type albuterol sulfate 2.5 mg/3 mL 2.5 mg (3 mL) inhalation Q6H #300 07/12/22 0 12/18/22 Unknown Rx (0.083 %) solution for nebulization mL albuterol sulfate 90 mcg/actuation 2 puff inhalation Q6H PRN 07/12/22 12/18/22 Unknown Rx aerosol inhaler shortness of breath or wheezing #25.5 grams budesonide 0.5 mg/2 mL suspension 0.5 mg inhalation DAILY PRN 09/07/22 12/18/22 Unknown History for nebulization Shortness Of Breath Or Wheezing ibuprofen 200 mg tablet 600 mg PO BID 09/07/22 12/18/22 09/07/22 History vitamin B12 0.5 mg-folic acid 1 mg 1 tab PO DAILY 09/07/22 12/18/22 09/07/22 History tablet glycerin (adult) (Fleet Glycerin 1 supp DC DAILY PRN constipation 09/25/22 12/18/22 Unknown Rx (Adult) rectal suppository) #12 ea magnesium hydroxide 400 mg/5 mL 15 ml PO BID PRN constipation #355 09/25/22 12/18/22 Unknown Rx oral suspension (Milk of Magnesia) mL bisacodyl 5 mg tablet,delayed 5 mg PO DAILY #30 tabs 10/01/22 12/18/22 Unknown Rx release (Dulcolax (bisacodyl)) duloxetine 30 mg capsule,delayed 30 mg PO BID #180 caps 10/04/22 12/18/22 Unknown Rx release fluticasone fur. 100 mcg-umeclid 1 inh inhalation Q24H #90 ea 10/04/22 12/18/22 Unknown Rx 62.5 mcg-vilant 25 mcg inhalat.powder (Trelegy Ellipta) gabapentin 800 mg tablet 800 mg PO DAILY #90 tabs 10/04/22 12/18/22 Unknown Rx lidocaine 5 % topical patch 2 patch topical DAILY #60 ea 10/05/22 12/18/22 Unknown Rx Lactobacillus rhamnosus GG 20 See Rx Instructions PO DAILY #30 11/12/22 12/18/22 Unknown Rx billion cell capsule (Probiotic caps [facility]) tramadol 50 mg tablet 50 mg PO Q8H #120 tabs 11/26/22 12/18/22 Unknown Rx honey 100 % topical paste 1 applic topical BID #103 mL 12/04/22 12/18/22 Unknown Rx (MediHoney (honey)) prednisone 10 mg tablet 10 mg PO BID 30 days #60 tabs 12/11/22 12/18/22 Unknown Rx verapamil 180 mg 24 hr 180 mg PO DAILY #30 caps 12/11/22 12/18/22 Unknown Rx capsule,extended release Allergies Allergy/AdvReac Type Severity Reaction Status Date / Time Penicillins Allergy Severe swelling Verified 12/18/22 18:04 amoxicillin Allergy ALGY-Anaphy Verified 12/18/22 18:04 laxis PFSH Acute PFSH: Medical History Acute encephalopathy Acute exacerbation of chronic obstructive airways disease Acute respiratory failure with hypoxia and hypercapnia Bullous pemphigoid Cigarette smoker COPD (chronic obstructive pulmonary disease) Essential hypertension Exertional dyspnea Hyperlipidemia, mixed Lumbar neuralgia Supplemental oxygen dependent Surgical History History of cystostomy History of hemorrhoidectomy History of lumbar surgery Family History Other Cancer Diabetes Hyperlipidemia Hypertension Social History Smoking and tobacco status: current every day smoker cigarettes Packs smoked per day: 1 Years cigarettes smoked: 50 [ Other cigarette details: currently 1ppd ] Second hand smoke exposure: No Smoking risk assessment/counseling performed?: Yes Alcohol intake: current Alcohol intake frequency: holidays/special occasions only Desire information about alcohol rehabilitation?: No Counseling given: No Substance/Drug Use: unknown Desire information about substance/drug rehabilitation?: No Counseling given: No Adopted: No Caregiver/support person: Yes Lives independently: Yes Household members: none Housing: House Marital status: Number of children: 4 Number of grandchildren: 4 Highest education level completed: GED or Equivalent Current occupational status: retired Current occupational exposures/hazards: No Pets and animals: Yes Do you think of yourself as: Straight/Heterosexual Current gender identity: Male Vitals/I&O/Wt Last Vital Signs Temp 97.8 F 12/19/22 00:14 Pulse 99 12/19/22 02:45 Resp 19 H 12/19/22 02:45 BP 149/72 12/19/22 02:45 Pulse Ox 96 12/19/22 02:45 O2 Del Method BiPAP 12/19/22 00:19 O2 Flow Rate 5 12/18/22 18:42 FiO2 35 12/19/22 00:24 Weight last 48 hrs Weight 35.834 kg Weight 80.739 kg Physical Exam Narrative: General: No acute distress, AO x3 HEENT: PERRLA, pupils bilaterally equal and reactive, pallors not present Chest: Normal vesicular breath sounds, no added sounds, equal good air entry bilaterally CVS: S1-S2 regular, no murmurs, no tachycardia, no gallops, no rubs Abdomen: Soft, nontender, no organomegaly, bowel sounds present Neuro: No focal deficits, no facial deformity, AO x3, power 5/5 in all limbs EXT: healed over crusted lesion over left ankle Urinary Catheter Management: Huff: Cath Placed During This Visit: yes Urinary Catheter Date of Insertion: 12/18/22 Urinary Catheter Time of Insertion: 21:38 Data 12/18/22 19:05 12/18/22 19:05 ABG Interpretation 1: 12/18/22 12/18/22 18:04 23:25 ABG pH 7.26 L 7.41 ABG pCO2 107.0 H* 74.2 H* ABG pO2 80.4 83.7 ABG HCO3 48.2 H 46.9 H ABG O2 Saturation 96.6 98.5 ABG Base Excess 16.9 H 18.8 H A&P Assessment and plan (1) Acute exacerbation of chronic obstructive airways disease: (2) Supplemental oxygen dependent: (3) Leg edema: Plan Mr. Vera is a 67-year-old male with advanced COPD, on chronic home oxygen but it appears he is noncompliant with the same, previously on home hospice until April 2022. He is brought to the emergency room via EMS being sent by his primary care office stating that he was hypoxic with sp02 70% . ABG shows acute on chronic hypercapnic respiratory failure with PCO2 of ~100 mmHg Clinical presentation suspicious for acute COPD exacerbation. Start scheduled nebulization with budesonide and DuoNebs.? Start dexamethasone 6 mg IV every 24 hours. Suspect that excaerbation related to non compliance with oxygen use Elevated WBC count without consolidation on chest x-ray. Suspect this is related to outpatient steroid use recently for bullous pemphigoid. Start levofloxacin 750 mg p.o. every 24 for atypical coverage in case pneumonia contributing currently. Continue BiPAP ventilation attempt to wean down. PCO2 currently trending down at [address]-T wave changes Respiratory viral panel negative. Lower extremity asymmetric swelling left greater than right, check lower extremity Doppler to evaluate for possible DVT. Local application of mupirocin over healed over scabbed bullous lesion over left ankle. No signs of cellulitis currently. Attestations Medical Necessity Statement*: Anticipate less than 2 midnight stay for acute on chronic COPD exacerbation with hypercapnic respiratory failure needing BiPAP ventilation. Critical Care Time: The high probability of a clinically significant, sudden or life threatening deterioration of the patient's [respiratory] system(s) required my full and direct attention, intervention and personal management. The critical care time is as shown. This time is in addition to time spent performing any reported procedures but includes the following: [x] Data and vital sign review and interpretation [x] Patient assessment, examination and intervention [x] Documentation [x] Medication orders and management Critical Care Time (min): 60 Coding Level of Care Code Acute Code for Chg Fwd Diagnoses Acute exacerbation of chronic obstructive airways disease J44.1 Supplemental oxygen dependent Z99.81 Leg edema R60.0
[2022-12-19 01:14] LABS: Troponin 5 6HR 24.48 ng/L (0-15)
[2022-12-19 01:22] LABS: Troponin 5 6HR Delta -2.52 ng/L (0-12)
[2022-12-19] MEDS: dexamethasone 4 mg/mL INJ 6 MG IVP (03:02)
--- NOTE | 2022-12-19 03:48 | USCV_ITS ---
Avni Hidalgo Age: 67 Gender: M : 1955 Exam Date: 12/19/2022 04:27 Ordering Phys: Muna Cortes MD Technologist: OSMANY Exam Location: [facility] – [place] Indication: evaluate for DVT patient on BIPAP in ICU-3. No hx DVT per patient. HISTORY: evaluate for DVT patient on BIPAP in ICU-3. No hx DVT per patient. PROCEDURES: Venous duplex imaging was performed in bilateral lower extremities. The following venous structures were evaluated: common femoral vein, profunda vein, proximal portion of the greater saphenous vein, superficial femoral vein, and the popliteal vein. In addition, the posterior tibial veins were evaluated. Serial compression, augmentation maneuvers, and spectral Doppler flow evaluation were performed, which were normal. Bilaterally, the common femoral, superficial femoral, profunda femoral, popliteal, posterior tibial, and greater saphenous veins were identified and interrogated in the standard fashion. These veins were found to be easily compressible with spontaneous blood flow. No evidence of thrombus noted. CONCLUSIONS No evidence of right lower extremity DVT. No evidence of left lower extremity DVT. Jorge L Hill MD (Electronically Signed) Final Date: 19 December 2022 11:24 S
[2022-12-19] MEDS: ipratropium-albuterol 3 mL Neb INHALATION ×5 (03:51→19:49)
[2022-12-19] MEDS: TRAMadol 50 mg Tablet PO ×4 (04:16→21:50)
[2022-12-19] MEDS: enoxaparin 40 mg/0.4 mL Syringe SUBCUT (04:17)
[2022-12-19 05:56] LABS: Procalcitonin 0.09 ng/mL (0-0.5)
[2022-12-19 06:07] LABS: Alanine Aminotransferase 18 U/L (0-41); Albumin Level 3.8 g/dL (3.5-5.2); Alkaline Phosphatase 86 U/L (40-130); Anion Gap 9.4 (5-19); Aspartate Amino Transferase 13 U/L (0-40); Blood Urea Nitrogen 13 mg/dL (8-23); Calcium 9.6 mg/dL (8.5-10.5); Chloride 93 mmol/L (98-107); Globulin 2.5 g/dL (1.3-4.6); Glomerular Filtration Rate 166.4 mL/min (90-130); Glucose 172 mg/dL (65-115); Osmolality Calculated 300 mOsm/kg (285-295); Potassium 4.4 mmol/L (3.5-5.1); Sodium 143 mmol/L (136-145); Total Bilirubin 0.3 mg/dL (0.15-1.2); Total Protein 6.3 g/dL (6.6-8.7)
[2022-12-19 06:10] LABS: Carbon Dioxide 45 mmol/L (22-29)
[2022-12-19] MEDS: budesonide 0.5 mg/2 mL Neb INHALATION ×2 (08:01→19:49)
[2022-12-19 08:12] LABS: ABG PCO2 59.1 mmHg (35-45); ABG PH Result 7.52 (7.35-7.45); Alveolar-Arterial Oxygen Gradi 14.1 mmHg (5-10); Base Excess ABG 21.7 mmol/L (-2.0-2.0); Blood Gas Allen Test Pos; Blood Gas Operator Identificat MONRO; Blood Gas Sample Site Brachial, left; Blood Gas Sample Type Arterial; Carboxyhemoglobin 1.9 %THgb (0.4-20.1); HCO3 ABG 47.7 mmol/L (22-26); HGB O2 Sat 94.2 % (95-100); Ionized Calcium Level - ABG 1.2 mmol/L (1.1-1.4); Methemoglobin 0.5 % (0.4-1.5); Oxygen Device BIPAP; Oxygen Saturation ABG 96.5; PO2 ABG 69.6 mmHg (80.0-100.0); Potassium Level - ABG 4.1 mmol/L (3.5-5.0); Total Hemoglobin 10.8 g/dL (14-18)
[2022-12-19] MEDS: dexmedetomidine 400 MCG in sodium chloride 0.9% (100 ml) 100 ML IV (08:16)
[2022-12-19] MEDS: morphine 4 mg/mL SDV 1 mL 2 MG IVP (08:32)
[2022-12-19] MEDS: levoFLOXacin 750 mg Tablet PO (08:39)
[2022-12-19] MEDS: duloxetine 30 mg Capsule PO ×2 (08:39→17:00)
[2022-12-19] MEDS: pantoprazole DR 40 mg Tablet PO (08:45)
[2022-12-19] MEDS: verapamil ER 180 mg Tablet PO (09:30)
[2022-12-19] MEDS: acetaminophen 325 mg Tablet 650 MG PO (09:45)
--- NOTE | 2022-12-19 09:53 | PC.PHAR ---
PT MED LIST FAXED FROM [facility] DUE TO PT BEING ON BIPAP THIS MORNING. 12/19/22
[2022-12-19] MEDS: methylPREDNISolone sod succ 40 MG in water for injection-sterile 1 ML 12 MG IVP ×3 (10:00→21:36)
--- NOTE | 2022-12-19 10:01 | CT_ITS ---
WS: [id number] Noncontrast CT LEFT foot TECHNIQUE: Noncontrast of the LEFT foot with coronal and sagittal reformatted images. CLINICAL INFORMATION: Cellulitis COMPARISON: None. DLP: 150.[address] scans at [facility] use at least one of these dose optimization techniques: automated e xposure control; mA and/or kV adjustment per patient size (includes targeted exams where dose is matc hed to clinical indication); or iterative reconstruction. FINDINGS: Diffuse soft tissue edema about the LEFT ankle and LEFT foot with skin thickening compatible with hillary lulitis. No evidence of drainable abscess or fluid collection. No evidence of osteomyelitis. No drain able fluid collections. Tiny plantar calcaneal spur. Mild degenerative arthritis at the ankle mortise . Normal medial and lateral malleolus. Normal talar dome. IMPRESSION: 1. Diffuse soft tissue edema compatible with cellulitis. 2. No evidence of drainable abscess or fluid collection. 3. No evidence of osteomyelitis.
[2022-12-19] MEDS: mupirocin oint 22 gm 1 APPLIC TOPICAL ×2 (10:02→17:01)
[2022-12-19] MEDS: cefTRIAXone 1,000 MG in sodium chloride 0.9% (plus) 50 ML 100 MG IV (12:14)
[2022-12-19] MEDS: vancomycin 1,500 MG/300 ML PIGGYBACK 200 MG IV ×2 (12:19→23:18)
--- NOTE | 2022-12-19 16:08 | P.PN_ITS ---
Subjective Subjective: Admitted overnight. H&P and labs appreciated. On morning patient was on BiPAP but was later transitioned from BiPAP to nasal cannula as patient was getting anxious on the BiPAP. When seen in the ICU he was sitting up in chair baseline 3 L oxygen supplementation saturating more than 90%. Denies any nausea, vomiting, headache. Patient seems out of breath during examination but states this is his baseline. Complaining of pain in his left ankle and foot. States usually he wears oxygen only when he feels like. States he is supposed to be wearing 3 to 4 L of oxygen supplementation. Wants to go back on hospice Vitals/I&O/Wt Last Vital Signs Temp 98.6 F 12/19/22 12:05 Pulse 114 H 12/19/22 14:00 Resp 20 H 12/19/22 11:50 BP 126/66 12/19/22 12:30 Pulse Ox 98 12/19/22 13:05 O2 Del Method Nasal Cannula 12/19/22 12:05 O2 Flow Rate 4 12/19/22 12:05 FiO2 35 12/19/22 11:27 12/19/22 12/19/22 12/19/22 06:59 14:59 22:59 Intake Total 1101.202 / 1101.202 Output Total 950 / 950 375 / 375 Balance -950 / -950 726.202 / 726.202 Weight last 48 hrs Weight 79 kg Weight 35.834 kg Weight 80.739 kg Physical Exam Narrative: General: In acute distress because of tachypnea, AOx3, chronically sick a ppearing HEENT: PERRLA, pupils bilaterally equal and reactive, pallors not present Chest: Bilateral bronchial breath sounds all over lung magaña with coarse crackles and occasional rhonchi lower lung magaña Cardiac: S1-S2 regular, tachycardia Abdomen: Soft, nontender, no organomegaly, bowel sounds present Neuro: No focal deficits, no facial deformity, AO x3, power 5/5 in all limbs EXT: healed over crusted lesion over left ankle, ankle looks slightly erythematous both on medial and lateral side no fluctuance swelling present Urinary Catheter Management: Huff: Cath Placed During This Visit: yes Reason for Continuing Indwelling Catheter: Accurate Measurement of Urinary Output in Critically Ill Patients Urinary Catheter Date of Insertion: 12/18/22 Urinary Catheter Time of Insertion: 21:38 Data 12/18/22 19:05 12/19/22 04:50 A&P Assessment and plan (1) Acute exacerbation of chronic obstructive airways disease: COPD exacerbation. Does have end-stage COPD. Oxygen supplementation keeping saturation over 88%. Patient denies any fever, increased expiration but than baseline. Low suspicion of bacterial superimposed infection for now. DuoNebs every 4 hour, Pulmicort twice daily. Solu-Medrol 40 mg every 6 hourly. Acetazolamide 5 mg oral daily. Patient does have component of respiratory contraction alkalosis with bicarb of 45 on blood work. (2) Supplemental oxygen dependent: Patient states he is on 4 L of oxygen supplementation. On review it seems patient is supposed to be on 6 to 7 L. End-stage COPD. Noncompliant behavior. (3) Cellulitis: Diagnosis ofWith pain in the left ankle. Stable bullous pemphigoid by the primary care as an outpatient. No fluctuance present on examination. Check CT ankle. For now broaden coverage with IV ceftriaxone and vancomycin. Patient is allergic to penicillin. Continue with tramadol 50 mg every 6 hourly for pain control, [place] 5 mg every 4 hourly as needed (4) Non-compliant behavior: Noncompliant to oxygen documentation. Chronic smoker. (5) Cigarette smoker: Counseled in detail to stop smoking. Patient for now is not thinking of quitting. Nicotine patch (6) Leg edema: (7) Goals of care, counseling/discussion: Plan Continue with Cymbalta at home dose. Add Xanax 0.5 3 times daily as needed for anxiety. We will also help with air hunger. Goals of care discussion done in detail with the patient at bedside. Patient states he knows he has end-stage COPD and currently cannot take care of himself. He is requesting for hospice. He states he was on hospice early in April and was living at assisted living but was discharged from hospice service. He is requesting to see if he can go back to hospice service as he cannot take care of himself any further and wants to have a better air hunger and pain control. Case management consulted. DNR/DNI. Regular diet Protonix for PUD prophylaxis Lovenox for DVT prophylaxis Attestations Medical Necessity Statement*: Requires further hospitalization for management of COPD exacerbation, left ankle cellulitis while hospice is set up after goals of care discussion Diagnoses Acute exacerbation of chronic obstructive airways disease J44.1 Supplemental oxygen dependent Z99.81 Cellulitis L03.90 Non-compliant behavior R46.89 Cigarette smoker F17.210 Leg edema R60.0 Goals of care, counseling/discussion Z71.89
--- NOTE | 2022-12-19 16:43 | PC.NURSE ---
Earlier today the patient indicated he was willing to try going to hospice again (previously was on hospice but signed himself out). WHen Case management came by later today the patient was becoming upset. He now seems unsure of what he wants and seems to want the benefits of hospice care, but doesn't want to make any of the necessary sacrifices. Doesn't want to go to a penitentiary since he is not allowed to smoke there. WHen discussing the option of doing hospice at home and needing a caregiver available, potentially a family member, he says he wants to live alone. He then tells us that he doesn't want to do hospice and wants to live until he is 81 years old. Case management then discussed he go to a penitentiary temporarily for rehab which will allow him to get strength back and gain independence since he doesn't want to do hospice but he didn't want to try that. Patient then said he doesn't care anymore and just let him do hospice. Patient was getting increasingly agitated and case management decided to come back another time to discuss again. The biggest barrier at this time is that he doesn't want to quit smoking.
[2022-12-19] MEDS: acetaZOLAMIDE 250 mg Tablet 500 MG PO (17:00)
[2022-12-19] MEDS: nicotine 21 mg Patch 1 PATCH TRANSDERMA (17:00)
--- NOTE | 2022-12-19 18:14 | PC.NURSE ---
SHift SUmmary: Patient taken off of bipap this morning and did well on 4L NC, saturating in the mid 90's, and 4L is his home baseline. Patient has been somewhat uncooperative with ancillary staff, but has been mostly compliant with nursing staff. Patient has sat up to a chair for about 10 hours of this shift. Occaisonally up to a bedside commode. Patient has been impulsive, when needing to get up to the bathroom he quickly gets up before nurse has a change to organize or disconnect lines, if monitoring devices are irritating him he will remove them on his own and almost pulled out an IV catheter. Patient in uncertain about what he wants his care goals to be and occasionally gets angry with staff over it. Patient has occaisonally become anxious, but anxiety medication has not been required as just sitting and listening to patient's concerns, or addressing other problems such as his foot pain or monitoring lines has been enough to relieve anxiety. Continuous vital monitoring has been interrupted as patient has frequently removed his monitoring devices.
[2022-12-20] VITALS (12 sets, daily range): BP systolic 149–164; BP diastolic 72–83; PULSE 101–122; RESP 16–19; TEMP 36.6–37.1; O2SAT 97–98
[2022-12-20] MEDS: ipratropium-albuterol 3 mL Neb INHALATION ×4 (00:15→14:09)
[2022-12-20] MEDS: enoxaparin 40 mg/0.4 mL Syringe SUBCUT (04:23)
[2022-12-20] MEDS: TRAMadol 50 mg Tablet PO ×2 (04:23→10:11)
[2022-12-20] MEDS: methylPREDNISolone sod succ 40 MG in water for injection-sterile 1 ML 12 MG IVP (04:25)
[2022-12-20 05:01] LABS: Hematocrit 33.4 % (37-53); Lymphocytes # 0.2 10^3/uL (0.8-4.8); Lymphocytes % 1.4 %; Mean Corpuscular HGB Conc 30.8 g/dL (30-55); Mean Corpuscular Hemoglobin 28.9 pg (27-33); Mean Corpuscular Volume 93.6 fl (82-101); Mean Platelet Volume 10.1 fL (7.4-10.4); Monocytes # 0.3 10^3/uL (0.2-0.9); Monocytes % 2.2 %; Neutrophils % 95.8 %; Nucleated Red Blood Cells % 0 %; Platelet Count 181 10^3/cmm (157-399); Red Blood Count 3.57 10^6/uL (3.85-5.65); White Blood Count 12.53 10^3/uL (3.29-11.43)
[2022-12-20] MEDS: budesonide 0.5 mg/2 mL Neb INHALATION (07:37)
--- NOTE | 2022-12-20 09:41 | PC.NURSE ---
Late note... At approximately 1000 on 12/20/2022 patient was reporting severe pain. Hydrocodone was removed form the pyxis to administer to the patient, but after scanning and removing medication form packaging the patient then refused. Unable to be wasted in pyxis since there was no anticipated waste and cannot be returned due to pill being removed from packaging. Nurse wasted medication with nurse Sahra Dc as witness.
[2022-12-20] MEDS: acetaZOLAMIDE 250 mg Tablet 500 MG PO (10:10)
[2022-12-20] MEDS: duloxetine 30 mg Capsule PO (10:11)
[2022-12-20] MEDS: pantoprazole DR 40 mg Tablet PO (10:11)
--- NOTE | 2022-12-20 10:42 | PC.CHAP ---
Pastoral Care Encounter/Spiritual Assessment Type of Contact [] Declined practical nursing teacher visit [] Patient/Family/Request visit [] Outpatient visit [] Follow-up visit [] Physician referral [] Code/Alert [x] Routine visit [] Staff referral [] Actively dying [] Patient sleeping [] Family support [] [] Out of room [] Palliative care [] [x] Receiving care in room [] Pre-surgical visit [] Trauma [] Long length of stay [] ICU visit [] Other: Relational/Emotional Strength [x] Patient feels connected with others/family/visitors/staff [] Distress [] Loneliness/isolation [] Abandonment Spirituality of Patient [x] Person of Saumya [] Attends Alevism of their Saumya [x] Believes in Prayer [] Reads Bible or Druze materials [] There are Spiritual issues to be addressed Sales Planning Manager Interventions [x] Prayer [x] Active listening [x] Non-anxious presence [x] Spiritual/emotional support [] Crisis/trauma care [x] Spiritual counseling [] Bereavement support [] Provided bereavement packet [] Provided Bible/devotional materials [] Provided toy/stuffed animal, coloring book to patient or family member [] Provided Communion [] Anointing/[place] [] Salvation [x] Completed spiritual assessment [] Other: Impact on Illness or Injury [] Angry [] Fearful [] Anxious [] Often cries [] Exhaustion [] Unable to work [] Unable to attend sabianism [] Unable to walk/stand [] Unable to read [] Unable to drive [] Unable to eat/drink [] Unable to sleep [] Unable to be with family [] Patient intubated [] Other: Summary doesn't know about his health waiting on doctor to see what needs to be done well go home at some time Time spent with patient 10 mins
--- NOTE | 2022-12-20 12:30 | P.DS_ITS ---
Discharge Providers Date of Admission: 12/19/22 03:55 Date of Discharge: December 20, 2022 Attending Provider at Admission: Muna Cortes MD Attending Provider at Discharge: Manish Arnold MD Primary Care Provider: BELÉN Brink Diagnoses at Discharge Discharge Diagnosis (1) Acute exacerbation of chronic obstructive airways disease: Status: Acute (2) Supplemental oxygen dependent: Status: Chronic (3) Cellulitis: Status: Acute (4) Non-compliant behavior: Status: Acute (5) Cigarette smoker: Status: Chronic (6) Leg edema: Status: Acute (7) Goals of care, counseling/discussion: Status: Acute Reason for Visit Reason for Visit: resp Distress Brief History: As per HPI: Avni Hidalgo is a 67 year old male Avni Hidalgo is a 67 year old male with a past medical history of severe COPD for which she is on chronic supplemental O2 of 6 to 7 L/min with which he is reportedly noncompliant.??He was last hospitalized approximately 1 month ago for acute on chronic COPD exacerbation and hypercapnic respiratory failure.? It appears he used to be on home hospice until April 2022 for advanced COPD but then took himself off of it. He presented to the emergency room today, having being sent by his primary care physician after they noted that upon clinic arrival he was saturating 70% on room air.? This is not unusual for the patient but I am unable to establish why he was not wearing his supplemental O2 as he is supposed to do at all times.? His ABG showed evidence of hypercapnic respiratory failure, acute on chronic with PCO2 up to 100.? He was started on a BiPAP ventilation following which repeat ABG was repeated after 2 hours and showed that PCO2 had trended down to 74.? He has been afebrile and hemodynamically stable.? He has recently been followed by his primary care provider for bullous pemphigoid for which he was on prednisone 20 mg daily.currently he has healed over bulla the left over left lateral ankle.? His left lower extremity is more swollen compared to the right side, he states this has been this way for at least a month now. Hospital Course Hospital Course Patient was admitted to the hospital for further evaluation and management of hypoxic and hypercapnic respiratory failure in setting of end-stage COPD. On admission he was also found to have left ankle swelling for which CT scan was done which ruled out any abscess or osteomyelitis but was concerning for cellulitis. He was started on nebulization treatment along with supplemental oxygen and steroid therapy. Patient stated that he is end-stage COPD and has been advised and has been on hospice in the past but was discharged as he improved back in April 2022 and is considering going back to hospice. Given patient's baseline health, advanced COPD hospice was referred again. Patient lives by himself and does not have a caregiver hence hospice services so far are reluctant to take him over as he does not have a caregiver and patient does not want to go live with his son or wants to be compliant to the rules of assisted living of more smoking. Patient stated he wants to continue living by himself for now but would consider living with his son when he is not able to take care of himself. Hospice services will be discussing his case with their management before taking him over as one of their patients. He has been discharged in hemodynamically stable condition back home on steroid taper, elation treatment and supplemental oxygen along with oral antibiotics for cellulitis while hospice referral has been sent. Physical Exam Narrative: General: In acute distress because of tachypnea, AOx3, chronically sick appearing HEENT: PERRLA, pupils bilaterally equal and reactive, pallors not present Chest: Bilateral bronchial breath sounds all over lung [place] with coarse crackles and occasional rhonchi lower lung [place] Cardiac: S1-S2 regular, tachycardia Abdomen: Soft, nontender, no organomegaly, bowel sounds present Neuro: No focal deficits, no facial deformity, AO x3, power 5/5 in all limbs EXT: healed over crusted lesion over left ankle, ankle looks slightly erythematous both on medial and lateral side no fluctuance swelling present Urinary Catheter Management: Huff: Cath Placed During This Visit: yes Reason for Continuing Indwelling Catheter: Accurate Measurement of Urinary Output in Critically Ill Patients Urinary Catheter Date of Insertion: 12/18/22 Urinary Catheter Time of Insertion: 21:38 Discharge Data Studies Completed and Pending Completed Studies During Hospitalization Category Date Time Status CT foot LT wo con* [id number] Routine Cat Scan 12/19/22 10:01 Completed XR chest 1V portable [id number] Stat Exams 12/18/22 18:01 [place] [id number] Routine Ultrasound 12/19/22 03:48 Completed Pending at discharge Category Date Time Status Complete Blood Count w/Auto AM LABS Lab 12/21/22 04:00 Ordered Comprehensive Metabolic Panel AM LABS Lab 12/21/22 04:00 Ordered Vancomycin Trough Timed Lab 12/20/22 22:00 Ordered Radiology Impressions Chest X-Ray 12/18/22 18:01 IMPRESSION: COPD morphology of the chest. Lower limb Doppler: CONCLUSIONS ?No evidence of right lower extremity DVT. ?No evidence of left lower extremity DVT. ?Jorge L Hill MD ?(Electronically Signed) ?Final Date:? ? ? 19 December 2022 ? 11:24 CT Scan Report Signed FINDINGS: Diffuse soft tissue edema about the LEFT ankle and LEFT foot with skin thickening compatible with cellulitis. No evidence of drainable abscess or fluid collection. No evidence of osteomyelitis. No drainable fluid collections. Tiny plantar calcaneal spur. Mild degenerative arthritis at the ankle mortise. Normal medial and lateral malleolus. Normal talar dome. IMPRESSION: 1.? Diffuse soft tissue edema compatible with cellulitis. 2.? No evidence of drainable abscess or fluid collection. 3.? No evidence of osteomyelitis. Dictated By: Jorge L Hill MD Laboratory Results WBC 12.53 10^3/uL (3.29-11.43) H 12/20/22 04:06 RBC 3.57 10^6/uL (3.85-5.65) L 12/20/22 04:06 Hgb 10.30 g/dL (11.27-16.99) L 12/20/22 04:06 Hct 33.4 % (37-53) L 12/20/22 04:06 MCV 93.6 fl (82-101) 12/20/22 04:06 MCH 28.9 pg (27-33) 12/20/22 04:06 MCHC 30.8 g/dL (30-55) 12/20/22 04:06 RDW 15.0 % (12.1-15.1) 12/20/22 04:06 Plt Count 181 10^3/cmm (157-399) 12/20/22 04:06 MPV 10.1 fL (7.4-10.4) 12/20/22 04:06 Neut % (Auto) 95.8 % 12/20/22 04:06 Lymph % (Auto) 1.4 % 12/20/22 04:06 [place] % (Auto) 2.2 % 12/20/22 04:06 Eos % (Auto) 0.0 % 12/20/22 04:06 Baso % (Auto) 0.0 % 12/20/22 04:06 Neut # (Auto) 12.00 10^3/uL (1.8-7.7) H 12/20/22 04:06 Lymph # (Auto) 0.2 10^3/uL (0.8-4.8) L 12/20/22 04:06 [place] # (Auto) 0.3 10^3/uL (0.2-0.9) 12/20/22 04:06 Eos # (Auto) 0.0 10^3/uL (0.0-0.8) 12/20/22 04:06 Baso # (Auto) 0.0 10^3/uL (0.0-0.1) 12/20/22 04:06 Nucleated RBC % (auto) 0 % 12/20/22 04:06 Nucleated RBCs # 0.0 /100WBC 12/20/22 04:06 Specimen Type Arterial 12/19/22 07:58 Sample Site Brachial, left 12/19/22 07:58 ABG pH 7.52 (7.35-7.45) H 12/19/22 07:58 ABG pCO2 59.1 mmHg (35-45) H 12/19/22 07:58 ABG pO2 69.6 mmHg (80.0-100.0) L 12/19/22 07:58 ABG HCO3 47.7 mmol/L (22-26) H 12/19/22 07:58 ABG O2 Saturation 96.5 12/19/22 07:58 ABG Base Excess 21.7 mmol/L (-2.0-2.0) H 12/19/22 07:58 [place]do Test Pos 12/19/22 07:58 A-a O2 Gradient 14.1 mmHg (5-10) H 12/19/22 07:58 Hematocrit 33.0 % (42-52) L 12/19/22 07:58 Hgb O2 Saturation 94.2 % (95-100) L 12/19/22 07:58 Carboxyhemoglobin 1.9 %THgb (0.4-20.1) 12/19/22 07:58 Methemoglobin 0.5 % (0.4-1.5) 12/19/22 07:58 Total Hemoglobin 10.8 g/dL (14-18) L 12/19/22 07:58 Sodium 142.0 mmol/L (131-143) 12/19/22 07:58 Potassium 4.1 mmol/L (3.5-5.0) 12/19/22 07:58 Glucose 169.0 mg/dL (70-115) H 12/19/22 07:58 Ionized Calcium 1.2 mmol/L (1.1-1.4) 12/19/22 07:58 O2 Delivery Device Bipap 12/19/22 07:58 O2 Liters/Min 5.0 % 12/18/22 18:04 FiO2 35.0 % 12/19/22 07:58 Cyber Engineer ID [place] 12/19/22 07:58 Sodium 143 mmol/L (136-145) 12/19/22 04:50 Potassium 4.4 mmol/L (3.5-5.1) 12/19/22 04:50 Chloride 93 mmol/L (98-107) L 12/19/22 04:50 Carbon Dioxide 45 mmol/L (22-29) H* 12/19/22 04:50 Anion Gap 9.4 (5-19) 12/19/22 04:50 BUN 13 mg/dL (8-23) 12/19/22 04:50 Creatinine 0.5 mg/dL (0.7-1.2) L 12/19/22 04:50 GFR Calculation 166.4 mL/min (90-130) H 12/19/22 04:50 Glucose 172 mg/dL (65-115) H 12/19/22 04:50 Calculated Osmolality 300 mOsm/kg (285-295) H 12/19/22 04:50 Lactic Acid 1.1 mmol/L (0.5-2.2) 12/18/22 19:05 Calcium 9.6 mg/dL (8.5-10.5) 12/19/22 04:50 Magnesium 2.4 mg/dL (1.7-2.3) H 12/18/22 19:05 Total Bilirubin 0.3 mg/dL (0.15-1.2) 12/19/22 04:50 AST 13 U/L (0-40) 12/19/22 04:50 ALT 18 U/L (0-41) 12/19/22 04:50 Alkaline Phosphatase 86 U/L (40-130) 12/19/22 04:50 Troponin T Baseline 27 ng/L (0-15) H 12/18/22 19:05 Troponin T 120 Minute 23.82 ng/L (0-15) H 12/18/22 21:03 Delta Troponin T -3.18 ABS# (0-10) L 12/18/22 21:03 Troponin T Hi Sens 6Hr 24.48 ng/L (0-15) H 12/19/22 00:52 Troponin T Hi Sens 6Hr Delta -2.52 ng/L (0-12) L 12/19/22 00:52 C-Reactive Protein 8.0 mg/L (0.0-4.9) H 12/19/22 04:50 NT-Pro-B Natriuret Pep 174 pg/mL (0-125) H 12/18/22 19:05 Total Protein 6.3 g/dL (6.6-8.7) L 12/19/22 04:50 Albumin 3.8 g/dL (3.5-5.2) 12/19/22 04:50 Globulin 2.5 g/dL (1.3-4.6) 12/19/22 04:50 Procalcitonin 0.09 ng/mL (0-0.5) 12/19/22 04:50 Urine Color Yellow (Yellow) 12/18/22 21:36 Urine Appearance Clear (CLEAR) 12/18/22 21:36 Urine pH 5 (5-7) 12/18/22 21:36 Ur Specific [place] 1.015 (1.005-1.030) 12/18/22 21:36 Urine Protein Neg (Negative) 12/18/22 21:36 Urine Glucose (UA) Norm (Normal) 12/18/22 21:36 Urine Ketones 1+ (Negative) H 12/18/22 21:36 Urine Blood Neg (Negative) 12/18/22 21:36 Urine Nitrate Negative (Negative) 12/18/22 21:36 Urine Bilirubin Neg (Negative) 12/18/22 21:36 Urine Urobilinogen Neg mg/dL (Negative) 12/18/22 21:36 Ur Leukocyte Esterase Negative (Negative) 12/18/22 21:36 Nasal Influ A H1 2009 PCR Not detected (NOT DETECT) 12/18/22 18:28 Adenovirus (PCR) Not detected (NOT DETECT) 12/18/22 18:28 C. pneumoniae DNA (PCR) Not detected (NOT DETECT) 12/18/22 18:28 Coronavirus 229E (PCR) Not detected (NOT DETECT) 12/18/22 18:28 Human Metapneumovir PCR Not detected (NOT DETECT) 12/18/22 18:28 Influenza A (H1) PCR Not detected (NOT DETECT) 12/18/22 18:28 Influenza A (H3) PCR Not detected (NOT DETECT) 12/18/22 18:28 Influenza Type A (PCR) Not detected (NOT DETECT) 12/18/22 18:28 Influenza Type B (PCR) Not detected (NOT DETECT) 12/18/22 18:28 M. pneumoniae (PCR) Not detected (NOT DETECT) 12/18/22 18:28 Parainfluenza 1 (PCR) Not detected (NOT DETECT) 12/18/22 18:28 Parainfluenza 2 (PCR) Not detected (NOT DETECT) 12/18/22 18:28 Parainfluenza 3 (PCR) Not detected (NOT DETECT) 12/18/22 18:28 Parainfluenza 4 (PCR) Not detected (NOT DETECT) 12/18/22 18:28 RSV Type A (PCR) Not detected (NOT DETECT) 12/18/22 18:28 RSV Type B (PCR) Not detected (NOT DETECT) 12/18/22 18:28 Entero/Rhino (PCR) Not detected (NOT DETECT) 12/18/22 18:28 SARS-CoV-2 (PCR) Not detected (NOT DETECT) 12/18/22 18:28 Vitals Last Vital Signs Temp 98.6 F 12/20/22 11:43 Pulse 122 H 12/20/22 11:43 Resp 16 12/20/22 11:43 BP 164/83 12/20/22 11:43 Pulse Ox 97 12/20/22 11:43 O2 Del Method Nasal Cannula 12/20/22 11:43 O2 Flow Rate 5 12/20/22 07:43 FiO2 35 12/20/22 03:46 Discharge Plan Discharge Patient Disposition: Home Condition: Stable Prescriptions: New linezolid 600 mg tablet 600 mg PO Q12H 5 Days Qty: 10 0RF verapamil 240 mg Tablet Extended Release 240 mg PO DAILY Qty: 30 0RF acetazolamide 250 mg Tablet 250 mg PO EVERY OTHER DAY 30 Days Qty: 15 0RF levofloxacin 500 mg tablet 500 mg PO Q24H 5 Days Qty: 5 0RF ipratropium bromide 17 mcg/actuation HFA aerosol inhaler 1 inh inhalation QID Qty: 12.9 0RF Rx Instructions: administer with spacer prednisone 10 mg tablet See Taper PO DIRECTED Qty: 42 0RF Taper: predniSONE 60-10 60 mg Daily for 2 Days and 0 Hour 50 mg Daily for 2 Days and 0 Hour 40 mg Daily for 2 Days and 0 Hour 30 mg Daily for 2 Days and 0 Hour 20 mg Daily for 2 Days and 0 Hour 10 mg Daily for 2 Days and 0 Hour Rx Instructions: see taper instructions Continued glycerin (adult) [Fleet Glycerin (Adult)] Suppository 1 supp [place] DAILY PRN (Reason: constipation) Qty: 12 0RF magnesium hydroxide [Milk of Magnesia] 400 mg/5 mL suspension 15 ml PO BID PRN (Reason: constipation) Qty: 355 0RF Probiotic Digestive Care 20 billion cell capsule See Rx Instructions PO DAILY Qty: 30 2RF Rx Instructions: 20 billion cell orally daily; tramadol 50 mg tablet 50 mg PO Q8H Qty: 120 1RF MediHoney (honey) 100 % paste 1 applic topical BID Qty: 103 0RF albuterol sulfate 90 mcg/actuation HFA aerosol inhaler 2 puff inhalation Q6H PRN (Reason: shortness of breath or wheezing) Qty: 25.5 1RF duloxetine 30 mg capsule,delayed release(DR/EC) 30 mg PO BID Qty: 180 0RF Dulcolax (bisacodyl) 5 mg tablet,delayed release (DR/EC) 5 mg PO DAILY Qty: 30 0RF pantoprazole 40 mg tablet,delayed release (DR/EC) 40 mg PO DAILY Discontinued prednisone 10 mg tablet 10 mg PO BID 30 Days Qty: 60 0RF verapamil 180 mg capsule,ext rel. pellets 24 hr 180 mg PO DAILY Qty: 30 0RF Discharge Orders: Discharge Order (Routine); Ordered 09/21/23 Ordered By: Manish Arnold Referrals: Surendra Rizzo, FIELD ADMINISTRATOR-C [Primary Care Provider] - 4-7 days Discharge Diet: Regular Discharge Activity: Resume usual activity and Increase activity as tolerated Patient Instructions: Opioid Safety Activity Restrictions/Additional Instructions: Please use prednisone as directed. Dose of verapamil has been increased. Please be compliant with oxygen supplementation. Please use inhalation treatment with ipratropium daily. You can use albuterol as needed. Please try to cut down on smoking as much as possible. You can get more resources regarding help with smoking cessation through us or a primary care provider if you need Discharge Attestations Time Spent in Discharge Care*: greater than 30 min Specific Discharge Activities: educating patient, educating and/or supporting family/caregiver, discussing with pcp/other providers, discussing with wrapper caser/social workers/dc planners, documenting/other paperwork and evaluating patient/reviewing data Status at Discharge: Cognitive status at discharge: cognitively intact , Behavioral status at discharge: cooperative , Functional status at discharge: uses cane/walker , Overall status at discharge: patient is back to baseline Quality Metrics Clinical Quality Measures [ No reported AMI, CVA or VTE this stay] Coding Level of Care Code 57754 Total time (in minutes) for Discharge: 60 Diagnoses Acute exacerbation of chronic obstructive airways disease J44.1 Supplemental oxygen dependent Z99.81 Cellulitis L03.90 Non-compliant behavior R46.89 Cigarette smoker F17.210 Leg edema R60.0 Goals of care, counseling/discussion Z71.89
== END 2022-12-20 15:25 | disposition home or self-care (01) ==
LOC: ER 23:18 → ICU 12-19 01:33 → MEDSURG 12-19 20:36
PROVIDERS: Admitting Provider Student in an Organized Health Care Education/Training Program; Emergency Provider Emergency Medicine; PCP Nurse Practitioner; Visit Provider Student in an Organized Health Care Education/Training Program
DX: J44.1 Chronic obstructive pulmonary disease with (acute) exacerbation (principal); Z99.81 Dependence on supplemental oxygen; L03.90 Cellulitis, unspecified; F17.210 Nicotine dependence, cigarettes, uncomplicated; R60.0 Localized edema; Z91.199 Patient's noncompliance with other medical treatment and regimen due to unspecified reason; I10 Essential (primary) hypertension; E78.2 Mixed hyperlipidemia
CPT/HCPCS: 36415; 36600; 51702; 71045; 73700; 80051; 80053; 81003; 82330; 82805; 83605; 83735; 83880; 84145; 84484; 85025; 86140; 87486; 87581; 87633; 93005; 93970; 94640; 94660; 94664; 96365; 96367; 96372; 96375; 96376; 99285; G0378; J0696; J1100; J1650; J2270; J2920; J3370; J7626